=== PATIENT | female | born 1970 | race Caucasian/White ===

== ENCOUNTER 2019-10-10 01:19 | Day surgery (SDC) | payer OTHER, SELFPAY ==
[2019-10-01 11:45] VITALS: BMI 31.3
--- NOTE | 2019-10-10 09:43 | PM.IMHP ---
H&P: HPI History of Present Illness Chief complaint: Menorrhagia Narrative: Lyudmila Field is a 49yo P1001, LMP 09/28/19 who initially presented to clinic with complaints of abnormal uterine bleeding. She reports heavy vaginal bleeding and can soak 2 large pads (overnight) at a time. In May, she had 21 days of bleeding. She continues to have bleeding every month; and occasionally has intermenstrual spotting. Full work up showed: fibroid uterus measuring [id number], thickened endometrium measuring 10mm, and endometrial polyp on endometrial biopsy. Pt was counseled for hysteroscopy, dilation and curettage, polypectomy, possible myomectomy, and endometrial ablation. Review of Systems Constitutional: Constitutional: Denies body ache(s), Denies fatigue and Denies lethargy Cardiovascular: Cardiovascular: Denies chest pain, Denies lightheadedness and Denies palpitations Respiratory: Respiratory: Denies cough and Denies dyspnea Gastrointestinal: Gastrointestinal: Denies abdominal pain and Denies nausea Genitourinary: Genitourinary: Reports menorrhagia, Denies hot flashes, Reports dysmenorrhea, Denies dysuria and Denies vaginal discharge Neurologic: Denies headache(s) Psychiatric: Psychiatric: Denies anxiety and Denies depression [facility] Family History Family History Mother Family history of thyroid disease Father Family history of blood dyscrasia Grandparent Cerebrovascular accident Social History Social History Smoking status: Never smoker Second hand tobacco smoke exposure: No Alcohol intake: current Meds Home Medications and Allergies Home Medications Medication Instructions Recorded Confirmed Type blood sugar diagnostic #10 each 07/30/19 07/30/19 History insulin aspart U-100 100 unit/mL 3 - 5 unit SUBCUT TID 07/30/19 10/01/19 History (3 mL) subcutaneous pen pen needle, diabetic 31 gauge x #30 each 07/30/19 07/30/19 History 11/18 blood-glucose meter,continuous #1 each 07/31/19 Rx blood-glucose sensor #3 each 07/31/19 Rx blood-glucose transmitter #1 each 07/31/19 Rx omeprazole 40 mg capsule,delayed 40 mg PO DAILY #30 cap 07/31/19 10/01/19 Rx release insulin degludec 100 unit/mL (3 22 unit SUB-Q DAILY 90 Days #19.8 09/14/19 10/01/19 Rx mL) subcutaneous pen ml Vitamin B-12 1 tablet PO DAILY 10/01/19 10/01/19 History albuterol sulfate [ProAir HFA] 1 inh INHALATION DIRECTED PRN 10/01/19 10/01/19 History glucosamine sulfate [Glucosamine] 500 mg PO DAILY 10/01/19 10/01/19 History psyllium husk [Metamucil] 0.4 g PO DAILY 10/01/19 10/01/19 History Allergies Allergy/AdvReac Type Severity Reaction Status Date / Time latex Allergy Severe Rash Verified 10/10/19 10:44 venom-wasp Allergy Unknown SWELLING, Verified 10/10/19 10:44 THROAT SWELLING bee venom protein (honey bee) Allergy THROAT Verified 10/10/19 10:44 [bees] SWELLING mushroom Allergy THROAT Verified 10/10/19 10:44 SWELLING Exam Const: General: comfortable and no acute distress Resp: Effort & Inspection: normal respiratory effort Auscultation: clear to auscultation bilaterally Cardio: Rate: regular rate Rhythm: regular rhythm GI: Inspection: non-distended GI Palp: Yes Soft to palpation and No Tenderness to palpation present (GI) Auscultation: normal bowel sounds : Other: deferred to OR Skin: General skin exam: normal color Neuro: Speech: normal speech Psych: Affect: normal affect Assessment and Plan Assessment and plan (1) Abnormal uterine bleeding (AUB): Code(s): N93.9 - Abnormal uterine and vaginal bleeding, unspecified Status: Acute Assessment and Plan: - AUB due to polyp vs leiomyoma vs oligomenorrhea - Will proceed with hysteroscopy, dilation/curettage, polypectomy, possible hysteroscopic myomectomy, and endometrial ablation - All risks, benefits,
[2019-10-10] MEDS: LACTATED RINGERS 1,000 ML 30 ML IV CONT ×2 (11:00→13:36)
[2019-10-10 11:06] LABS: Glucose Point of Care 159 (65-105)
--- NOTE | 2019-10-10 11:15 | WPDANESEPPF ---
Anes - Initial Pre Proc Eval Procedure: Operation Date: 10/10/19 12:00 Proposed Procedures p Hysteroscopy, Polypectomy, Novasure Endometrial Ablation, Possible Myomectomy - Karina Subramanian MD Date/Time: 10/10/19 11:15 Surgeon: Karina Subramanian MD Pre Op Diagnosis: Menorrhagia Patient Data Age: 49 Gender: F Height: 5 ft 6 in Weight: 87 kg Allergies Allergy/AdvReac Type Severity Reaction Status Date / Time latex Allergy Severe Rash Verified 10/10/19 10:44 venom-wasp Allergy Unknown SWELLING, Verified 10/10/19 10:44 THROAT SWELLING bee venom protein (honey bee) Allergy THROAT Verified 10/10/19 10:44 [bees] SWELLING mushroom Allergy THROAT Verified 10/10/19 10:44 SWELLING Home Medications Medication Instructions Recorded Confirmed Type blood sugar diagnostic #10 each 07/30/19 07/30/19 History insulin aspart U-100 100 unit/mL 3 - 5 unit SUBCUT TID 07/30/19 10/10/19 History (3 mL) subcutaneous pen pen needle, diabetic 31 gauge x #30 each 07/30/19 07/30/19 History 11/18 blood-glucose meter,continuous #1 each 07/31/19 Rx blood-glucose sensor #3 each 07/31/19 Rx blood-glucose transmitter #1 each 07/31/19 Rx omeprazole 40 mg capsule,delayed 40 mg PO DAILY #30 cap 07/31/19 10/10/19 Rx release insulin degludec 100 unit/mL (3 22 unit SUB-Q DAILY 90 Days #19.8 09/14/19 10/10/19 Rx mL) subcutaneous pen ml Vitamin B-12 1 tablet PO DAILY 10/01/19 10/10/19 History albuterol sulfate [ProAir HFA] 1 inh INHALATION DIRECTED PRN 10/01/19 10/01/19 History glucosamine sulfate [Glucosamine] 500 mg PO DAILY 10/01/19 10/10/19 History psyllium husk [Metamucil] 0.4 g PO DAILY 10/01/19 10/10/19 History Laboratory Tests 10/10/19 11:04 POC Capillary Glucose 159 mg/dl H mg/dl (65-105) Patient hx anesthesia problems: post op nausea/vomiting Family hx anesthesia problems: none PMFSH Family History Family History Mother Family history of thyroid disease Father Family history of blood dyscrasia Grandparent Cerebrovascular accident Social History Social History Smoking status: Never smoker Second hand tobacco smoke exposure: No Alcohol intake: current Anes - Eval Final PreProcedure Day of Procedure 10/10/19 11:15 Patient weight: obese Heart: regular rate and rhythm Lungs: clear to auscultation Airway: Mallampati scale class II Neurological: alert and oriented Last oral intake: >/= 8 hours ASA classification: II Emergent: no Anesthetic plan: proceed Anesthesia type and monitoring: general GIVS and standard monitoring Informed Consent: The patient's anesthetic plan and its attendant risks and benefits were discussed with the patient/family/POA. Questions were solicited and answers provided to the satisfaction of the patient/family/POA.
[2019-10-10 11:33] VITALS: BP 145/63; PULSE 70; RESP 16; TEMP 36.3; O2SAT 95
[2019-10-10] MEDS: ceFAZolin 2 GM/D5W 50 ML 2 GM/50 ML BAG IVPB (12:09)
[2019-10-10] MEDS: KETOROLAC 30 MG/ML VIAL (*BKC) IV PUSH (12:39)
[2019-10-10 12:54] VITALS: BP 137/85; PULSE 68; RESP 18; O2SAT 94
[2019-10-10 13:20] VITALS: BP 106/67; PULSE 40
[2019-10-10] MEDS: SCOPOLAMINE 1.5 MG PATCH TRANSDERM (13:34)
[2019-10-10 13:50] VITALS: BP 104/57; PULSE 47
--- NOTE | 2019-10-10 14:02 | PM.PROC ---
Procedure Note - Detailed Date of procedure: 10/10/19 Pre-op diagnosis: Menorrhagia Post-op diagnosis: same Procedure performed: Hysteroscopy, dilation and curettage, and Evon endometrial ablation Description of procedure: The patient was taken to the operating room where MAC was noted to be adequate. She was then prepped and drained in the dorsal lithotomy position. She recieved 2g Ancef and a time out was performed. The bladder was drained using a straight catheter (silicone). A bivalve speculum was then placed within the vagina and the anterior lip of the cervix was grasped with a single tooth tenaculum. A sound was used to identify the total uterine length of 10cm. The cervix was then serially dilated to allow for the hysteroscope. The hysteroscope was inserted into the uterus without complication and the thickened endometrium and three small endometrial polyps were noted. The hysteroscope was removed and a gentle curettage was performed until a good uterine cry was noted. The endometrial curettings were sent to pathology. The Evon endometrial ablation was then set to the correct settings. The Evon device was inserted into the uterus, deployed and the cervical balloon was insufflated. The test run was performed and passed. The endometrial ablation was performed without issue for 120 seconds. The Mirnerva device was removed from the uterus and the hysteroscope was once again advanced and verified the endometrial cavity was ablated in its entirety. All instruments were removed from the vagina after good hemostasis was noted. Instrument and sponge counts were correct at the end of the procedure. The patient tolerated the procedure well and was woken from MAC without difficulty and taken to recovery with plans to be discharged home same day. Anesthesia: MAC Surgeon: Karina Subramanian MD Estimated blood loss (mL): 5 Urine output (mL): 300 Drains: No Packing: No Pathology: yes (endometrial curretings) Complications: No immediate complications Condition: stable Disposition: same day Findings: Slightly enlarged uterus; 10cm in length, cervix measuring 4cm in length. Thickened endometrial lining with 3 small endometrial polyps. Evon endometrial ablation performed without difficulty. Good hemostasis at end of case.
[2019-10-10 14:20] VITALS: BP 118/73; PULSE 58
[2019-10-10 14:35] VITALS: BP 121/64; PULSE 60
== END 2019-10-10 14:49 | disposition home or self-care (01) ==
PROVIDERS: PCP Internal Medicine; Visit Provider Obstetrics & Gynecology
PROC: 0U5B8ZZ Destruction of Endometrium, Via Natural or Artificial Opening Endoscopic (ICD-10-PCS; CPT 58563; principal; 2019-10-10 12:00)
DX: N92.0 Excessive and frequent menstruation with regular cycle (principal); N84.0 Polyp of corpus uteri; E10.9 Type 1 diabetes mellitus without complications; Z79.4 Long term (current) use of insulin; E66.9 Obesity, unspecified; Z68.31 Body mass index [BMI] 31.0-31.9, adult
CPT/HCPCS: 58563; 88305; A9270; J0131; J0690; J1100; J1200; J1885; J2250; J2405; J2704; J3010; J7030; J7120

== ENCOUNTER 2019-12-13 10:55 | Outpatient (CLI) | payer OTHER, SELFPAY ==
--- NOTE | ~2019-12-13 | XR_ITS ---
EXAMINATION: XR chest 2V DATE: 12/13/2019 11:10 INDICATION: Shortness of breath. TECHNIQUE: Frontal and lateral views of the chest were obtained. COMPARISON: CT abdomen and pelvis 11/20/2018 FINDINGS: The chest demonstrates clear lungs without pneumonia, pleural effusion, or pneumothorax. Th e heart size is normal. There are likely changes of distal right clavicle resection. IMPRESSION: 1. No acute cardiopulmonary disease. Reviewed, dictated and finalized at location A.
== END 2019-12-13 10:56 | disposition home or self-care (01) ==
LOC: ANHIMG 11:00
PROVIDERS: PCP Internal Medicine; Visit Provider Nurse Practitioner
DX: R06.02 Shortness of breath (principal)
CPT/HCPCS: 71046

== ENCOUNTER 2020-02-20 11:26 | Outpatient (CLI) | payer OTHER, SELFPAY ==
--- NOTE | ~2020-02-20 | XR_ITS ---
EXAMINATION: XR chest 2V DATE: 02/20/2020 11:42 INDICATION: Shortness of breath TECHNIQUE: PA and lateral views of the chest are obtained. COMPARISON: 12/13/2019 FINDINGS: The lungs are free of acute opacities. There is no pleural effusion or pneumothorax. The ca rdiomediastinal silhouette is normal. There is mild thoracic spondylosis. Again noted are changes in the distal right clavicle which may reflect prior resection. IMPRESSION: 1. No acute cardiopulmonary abnormality. Reviewed, dictated and finalized at location A.
== END 2020-02-20 11:27 | disposition home or self-care (01) ==
LOC: ANHIMG 11:31
PROVIDERS: PCP Internal Medicine; Visit Provider Clinical Nurse Specialist
DX: R06.02 Shortness of breath (principal)
CPT/HCPCS: 71046

== ENCOUNTER 2020-06-13 14:56 | Outpatient (CLI) | payer OTHER, SELFPAY ==
--- NOTE | ~2020-06-13 | XR_ITS ---
EXAMINATION: XR chest 2V EXAM DATE: 06/13/2020 15:16 INDICATION: Shortness of breath, cough. History of asthma. TECHNIQUE: Frontal and lateral projections of the chest obtained and reviewed. Comparison is made to prior examination from 01/20/2020, 12/13/2019. FINDINGS: Mild thoracic aortic tortuosity. The lungs are clear. There are no pleural effusions. Th e cardiomediastinal silhouette is within normal limits. There is no pneumothorax suspected. The bon es and soft tissues are unremarkable. Widened right acromioclavicular joint, could be postoperative . This is unchanged. IMPRESSION: No acute cardiopulmonary findings. Reviewed, dictated and finalized at location G.
== END 2020-06-13 14:57 | disposition home or self-care (01) ==
PROVIDERS: PCP Internal Medicine
DX: R05 Cough (principal); J45.909 Unspecified asthma, uncomplicated
CPT/HCPCS: 71046

== ENCOUNTER → 2020-10-28 14:45 | Outpatient (CLI) | payer OTHER, SELFPAY ==
--- NOTE | ~2020-10-28 | MM_ITS ---
EXAMINATION: MM screening [facility] BI w negrito HISTORY: Screening mammogram TECHNIQUE: Craniocaudal and mediolateral oblique 3-D tomosynthesis images were obtained and synthetic 2-D images were generated. CAD analysis was submitted and interpreted. COMPARISON: 12/26/2018, 08/03/2017, 05/31/2016 BREAST PARENCHYMAL COMPOSITION: The breasts are heterogeneously dense, which may obscure small masses . FINDINGS: There is no evidence of suspicious mass, calcification, or architectural distortion to sugg est malignancy in either breast. There has been no suspicious interval change. IMPRESSION: 1. No mammographic evidence of malignancy. 2. Recommend routine screening mammography in one year. BI-RADS Category 1: Negative Reviewed, dictated and finalized at location A. CTIONS COUNSELOR
== END ==
PROVIDERS: Visit Provider Obstetrics & Gynecology
DX: Z12.31 Encounter for screening mammogram for malignant neoplasm of breast (principal)
CPT/HCPCS: 77063; 77067

== ENCOUNTER 2020-11-07 14:29 | Outpatient (CLI) | payer OTHER, SELFPAY | END 2020-11-07 14:30 | disposition home or self-care (01) | LOC: ANHCOVIDVC 14:29 | DX: Z23 Encounter for immunization (principal) | CPT/HCPCS: 0001A; 91300 ==

== ENCOUNTER 2020-11-28 14:35 | Outpatient (CLI) | payer OTHER, SELFPAY | END 2020-11-28 14:36 | disposition home or self-care (01) | LOC: ANHCOVIDVC 14:35 | DX: Z23 Encounter for immunization (principal) | CPT/HCPCS: 0002A; 91300 ==

== ENCOUNTER 2021-01-01 10:32 | Outpatient (CLI) | payer OTHER, SELFPAY ==
[2021-01-01 12:16] LABS: Anion Gap 3 mmol/L (8-16); Blood Urea Nitrogen 14 mg/dL (7-17); Calcium 9.4 mg/dL (8.4-10.2); Carbon Dioxide 31 mmol/L (22-30); Chloride 104 mmol/L (98-107); Cholesterol 208 mg/dL (0-200); Estimated Glomerular Filt Rate > 60; Glucose 136 mg/dL (65-105); HDL Direct 68 mg/dL; Potassium 4.3 mmol/L (3.4-5.0); Sodium 138 mmol/L (137-145); Triglycerides 71 mg/dL (<150)
[2021-01-01 12:27] LABS: LDL Cholesterol Direct 108 mg/dL
[2021-01-01 12:59] LABS: Creatinine Urine 98.3 mg/dL
[2021-01-01 13:14] LABS: MALB Creatinine Ratio < 6.1 mg/g (0-30); Microalbumin Urine Random < 6.0 mg/L (0-16.7)
== END 2021-01-01 10:33 | disposition home or self-care (01) ==
LOC: ANHWCLAB 10:36
PROVIDERS: Visit Provider Internal Medicine Endocrinology, Diabetes & Metabolism
DX: E10.65 Type 1 diabetes mellitus with hyperglycemia (principal)
CPT/HCPCS: 36415; 80048; 80061; 82043; 84443

== ENCOUNTER 2021-01-14 11:36 | Emergency (ER) | payer OTHER, SELFPAY ==
--- NOTE | ~2021-01-14 | XR_ITS ---
EXAMINATION: XR chest 2V DATE: 01/14/2021 12:05 INDICATION: Chest pain. TECHNIQUE: Frontal and lateral views of the chest were obtained. COMPARISON: Chest 2 views 06/13/2020, CT abdomen and pelvis 11/20/2018 FINDINGS: The chest demonstrates clear lungs without pneumonia, pleural effusion, or pneumothorax. Th e heart size is normal. There are changes of distal right clavicle resection. IMPRESSION: 1. No acute cardiopulmonary disease. Reviewed, dictated and finalized at location B.
[2021-01-14 11:43] VITALS: BP 127/80; PULSE 66; RESP 16; O2SAT 100
--- NOTE | 2021-01-14 11:47 | ECG_ITS ---
Measurements Intervals [place] Rate: 72 P: 55 MO: 188 QRS: -11 QRSD: 78 T: 49 QT: 383 QTc: 420 Interpretive Statements SINUS RHYTHM LOW QRS VOLTAGE IN PRECORDIAL LEADS CONSIDER INFERIOR INFARCT, AGE INDETERMINATE ABNORMAL ECG Electronically Signed On 01-14-2021 12:06:16 CDT by Domingo Lester D.O.
[2021-01-14 11:59] LABS: Basophils Percent Auto 0.5 % (0.2-1.2); Eosinophils Absolute Auto 0.1 K/mm3 (0-0.3); Eosinophils Percent Auto 2.3 % (0-4.4); Hemoglobin 13.5 g/dL (12.0-15.0); Immature Granulocyte Absolute 0.01 K/mm3 (0.00-0.031); Immature Granulocyte Percent A 0.3 % (0-0.5); Lymphocytes Absolute Auto 1.34 K/mm3 (0.9-3.2); Lymphocytes Percent Auto 34.1 % (18.3-44.2); Mean Corpuscular HGB Conc 33.8 g/dl (32-36); Mean Corpuscular Hemoglobin 30.5 pg (26-34); Mean Corpuscular Volume 90.3 fl (80-100); Mean Platelet Volume 10.1 fl (7.4-10.4); Monocytes Absolute Auto 0.4 K/mm3 (0.1-0.6); Monocytes Percent Auto 9.4 % (2.6-8.5); Neutrophils Absolute Auto 2.1 K/mm3 (1.3-6.7); Neutrophils Percent Auto 53.4 % (45.5-73.1); Platelet Count Result 312 k/mm3 (150-375); Red Blood Count 4.43 M/mm3 (4.2-5.4); Red Cell Distribution Width 12.2 % (11.5-14.5); White Blood Count 3.9 K/mm3 (4.5-10.0)
[2021-01-14 12:09] LABS: Prothrombin Time 13.6 Seconds (11.1-14.7)
[2021-01-14 12:10] LABS: Partial Thromboplastin Time 26.6 SECONDS (22.3-36.8)
[2021-01-14 12:12] LABS: Anion Gap 1 mmol/L (8-16); Blood Urea Nitrogen 10 mg/dL (7-17); Calcium 9.4 mg/dL (8.4-10.2); Carbon Dioxide 32 mmol/L (22-30); Chloride 107 mmol/L (98-107); Estimated CRCL calculation 112 ml/min; Estimated Glomerular Filt Rate > 60; Glucose 64 mg/dL (65-105); Potassium 4.4 mmol/L (3.4-5.0); Sodium 140 mmol/L (137-145)
[2021-01-14 12:23] LABS: Troponin I < 0.012 ng/mL (0.000-0.034)
[2021-01-14 13:24] VITALS: PULSE 64
[2021-01-14 14:10] VITALS: BP 103/76; PULSE 70; RESP 16; O2SAT 97
[2021-01-14] MEDS: KETOROLAC 30 MG/ML VIAL (*BKC) IV PUSH (14:11)
--- NOTE | 2021-01-14 14:11 | PC.NURSE ---
Report to TESFAYE Velasco, to continue care.
--- NOTE | 2021-01-14 14:27 | ED.CHESTPAIN ---
HPI - Chest Pain General Chief Complaint: Chest Pain Stated Complaint: cp Time Seen by Provider: 01/14/21 13:31 History of Present Illness HPI narrative: Patient is a 51-year-old female who presents ER with neck/chest/back pain. Patient woke up this morning with her chronic neck pain on the left side. But was atypical about this is she is also developing pain over her left chest moving to the right side and also having pain in her left back. It is worse with moving and twisting and lifting items. It is also uncomfortable when she takes a deep breath. No fevers or chills or sweats. No productive cough. No hemoptysis. No lower extremity swelling. She did have surgery less than 1 month ago. She reports family history of blood clots but she has been checked for the genetic flexion that affects her family and she was negative. She has no personal history of blood clots. No improvement with ibuprofen or Tylenol. Related Data Home Medications Medication Instructions Recorded Confirmed blood sugar diagnostic #10 each 07/30/19 07/04/20 Vitamin B-12 1 tablet PO DAILY 10/01/19 07/04/20 glucosamine sulfate [Glucosamine] 500 mg PO DAILY 10/01/19 07/04/20 psyllium husk [Metamucil] 0.4 g PO DAILY 10/01/19 07/04/20 fluticasone propionate 50 1 spray NASAL DAILY 12/13/19 07/04/20 mcg/actuation nasal spray,suspension pen needle, diabetic 31 gauge x #30 each 05/27/20 07/04/20 3/16 insulin degludec 100 unit/mL (3 18 - 20 unit SUB-Q QAM ml 09/24/20 mL) subcutaneous pen fluticasone propion-salmeterol INHALATION 01/14/21 [Advair Diskus] Allergies Allergy/AdvReac Type Severity Reaction Status Date / Time latex Allergy Severe Rash Verified 01/14/21 13:30 venom-wasp Allergy Unknown SWELLING, Verified 01/14/21 13:30 THROAT SWELLING bee venom protein (honey bee) Allergy THROAT Verified 01/14/21 13:30 [bees] SWELLING mushroom Allergy THROAT Verified 01/14/21 13:30 SWELLING Review of Systems Review of Systems: All systems reviewed & are unremarkable except as noted in HPI and below Constitutional: Constitutional: Denies chills, Denies fever(s) and Denies weakness ENT: Denies nasal congestion and Denies sore throat Cardiovascular: Cardiovascular: Reports chest pain, Denies rapid heart rate and Denies radiating jaw, neck or arm pain Respiratory: Respiratory: Denies cough, Denies dyspnea and Denies wheezing Gastrointestinal: Gastrointestinal: Denies abdominal pain, Denies nausea and Denies vomiting Genitourinary: Genitourinary: Denies nocturia and Denies dysuria Musculoskeletal: Musculoskeletal: Reports back pain, Denies arthralgias, Denies joint swelling and Reports muscle cramps [facility] Past Medical History Medical History (Updated 01/14/21 @ 16:02 by Markel Mead MD) Asthma GERD (gastroesophageal reflux disease) Surgical History Surgical History (Updated 01/14/21 @ 10:44 by Ewa Manuel CMA) H/O adenoidectomy H/O dilation and curettage H/O foot surgery Left foot bone replacement H/O shoulder surgery Right and left History of hernia repair History of repair of ACL History of tonsillectomy Status post cervical polyp removal Family History Family History Mother Family history of thyroid disease Father Family history of blood dyscrasia Grandparent Cerebrovascular accident Social History Social History Smoking status: Never smoker Second hand tobacco smoke exposure: No Alcohol intake: current Gender identity (if verbalized by the patient): Female Exam Narrative: Exam Narrative: GENERAL: Well-appearing, well-nourished, and in no acute distress. HEAD: Normocephalic, atraumatic. CHEST: Clear to auscultation. No respiratory distress. Tender palpation with light palpation of the anterior chest wall bilaterally. HEART: Regular rate and rhythm. Normal pe
[2021-01-14 15:11] LABS: Troponin I < 0.012 ng/mL (0.000-0.034)
[2021-01-14 15:12] LABS: D Dimer 0.27 ug/mL (<0.48)
[2021-01-14 15:43] VITALS: BP 107/74; PULSE 70; RESP 14; O2SAT 97
[2021-01-14 16:08] VITALS: BP 118/82; PULSE 79; RESP 15; O2SAT 100
== END 2021-01-14 16:12 | disposition home or self-care (01) ==
PROVIDERS: Emergency Medicine; Emergency Provider Emergency Medicine; PCP Internal Medicine
DX: R25.2 Cramp and spasm (principal); J45.909 Unspecified asthma, uncomplicated; K21.9 Gastro-esophageal reflux disease without esophagitis
CPT/HCPCS: 36415; 71046; 80048; 84484; 85025; 85380; 85610; 85730; 93005; 96374; 99284; J1885

== ENCOUNTER 2021-01-21 08:22 | Outpatient (CLI) | payer OTHER, SELFPAY ==
--- NOTE | ~2021-01-21 | CT_ITS ---
EXAMINATION: CTA chest PE protocol DATE: 01/21/2021 08:59 INDICATION: Shortness of breath TECHNIQUE: Computed tomography angiography (CTA) of the chest was performed with 100 mL Omnipaque-350 intravenous contrast timed to evaluate the pulmonary arteries. Coronal maximum intensity projection 3D-reconstructions were created by the technologist. Automated exposure control and iterative reconst ruction technique were employed. Exam dose: 499.59 mGy-cm total exam DLP. COMPARISON: 01/14/2021 PA and lateral chest FINDINGS: There is diagnostic contrast enhancement of the pulmonary arteries and no evidence of pulmo nary embolism. No thoracic aortic aneurysm or dissection. Heart size is within normal range. No pericardial or pleur al effusion. Mild atelectasis in the lower lobes. Mild discoid scarring, right upper lobe. No pulmonary consolidat ion or pulmonary mass lesion is evident. Normal morphology of the adrenal glands. Included upper abdominal structures are unremarkable. No suspicious osteolytic or osteoblastic lesions. IMPRESSION: No evidence of pulmonary embolism Reviewed, dictated and finalized at Location A. Reviewed, dictated and finalized at location B.
== END 2021-01-21 08:23 | disposition home or self-care (01) ==
PROVIDERS: PCP Internal Medicine; Visit Provider Clinical Nurse Specialist
DX: R06.02 Shortness of breath (principal)
CPT/HCPCS: 71275; Q9967

== ENCOUNTER 2021-04-08 10:34 | Outpatient (CLI) | payer OTHER, SELFPAY ==
--- NOTE | ~2021-04-08 | US_ITS ---
EXAMINATION: US venous doppler [facility] DATE: 04/08/2021 11:21 INDICATION: Left posterior thigh pain and bruise TECHNIQUE: Panda scale images without and with compression and Doppler images of the left lower extrem ity veins were obtained. COMPARISON: None FINDINGS: The left common femoral vein, profunda femoral vein, femoral vein, popliteal vein, peroneal trunk, posterior tibial veins, and greater saphenous vein are patent. No discrete sonographic correl ate is identified in the area of the reported bruising. IMPRESSION: 1. Patent left lower extremity veins. No evidence of deep venous thrombosis. Reviewed, dictated and finalized at location A.
== END 2021-04-08 10:35 | disposition home or self-care (01) ==
PROVIDERS: PCP Internal Medicine; Visit Provider Nurse Practitioner
DX: R52 Pain, unspecified (principal); R60.9 Edema, unspecified
CPT/HCPCS: 93971

== ENCOUNTER 2021-04-21 20:39 | Emergency (ER) | payer OTHER, SELFPAY ==
--- NOTE | ~2021-04-21 | XR_ITS ---
XR chest 2V DATE: 04/21/2021 20:54 INDICATION: Midsternal and left-sided chest pain for one week. History of asthma and type 1 diabetes mellitus. TECHNIQUE: PA and lateral views COMPARISON: 01/21/2021 CT pulmonary scan 01/14/2021 2 view chest FINDINGS: Lateral right clavicular resection. Normal heart size. No hilar or mediastinal enlargement. No pulmonary infiltrate or consolidation, pleural effusion or pulmonary vascular congestion or pneumo thorax. IMPRESSION: No active cardiopulmonary disease Reviewed, dictated and finalized at location A.
--- NOTE | 2021-04-21 20:41 | ECG_ITS ---
Measurements Intervals [place] Rate: 78 P: 48 [place]: 182 QRS: -11 QRSD: 75 T: 51 QT: 376 QTc: 430 Interpretive Statements SINUS RHYTHM LOW QRS VOLTAGE IN PRECORDIAL LEADS INFERIOR INFARCT, AGE INDETERMINATE ABNORMAL ECG Electronically Signed On 04-22-2021 6:28:58 CDT by Domingo Lester D.O.
[2021-04-21 21:09] VITALS: BP 137/83; PULSE 77; RESP 18; TEMP 36.3; O2SAT 100
[2021-04-21 21:15] LABS: Basophils Percent Auto 0.7 % (0.2-1.2); Eosinophils Absolute Auto 0.1 K/mm3 (0-0.3); Eosinophils Percent Auto 1.5 % (0-4.4); Hematocrit 40.2 % (37.0-47.0); Hemoglobin 13.5 g/dL (12.0-15.0); Immature Granulocyte Absolute 0.01 K/mm3 (0.00-0.031); Immature Granulocyte Percent A 0.2 % (0-0.5); Lymphocytes Absolute Auto 1.42 K/mm3 (0.9-3.2); Lymphocytes Percent Auto 34.8 % (18.3-44.2); Mean Corpuscular HGB Conc 33.6 g/dl (32-36); Mean Corpuscular Hemoglobin 30.4 pg (26-34); Mean Corpuscular Volume 90.5 fl (80-100); Mean Platelet Volume 10.3 fl (7.4-10.4); Monocytes Absolute Auto 0.3 K/mm3 (0.1-0.6); Monocytes Percent Auto 7.6 % (2.6-8.5); Neutrophils Absolute Auto 2.3 K/mm3 (1.3-6.7); Neutrophils Percent Auto 55.2 % (45.5-73.1); Platelet Count Result 337 k/mm3 (150-375); Red Blood Count 4.44 M/mm3 (4.2-5.4); Red Cell Distribution Width 12.7 % (11.5-14.5); White Blood Count 4.1 K/mm3 (4.5-10.0)
[2021-04-21 21:24] LABS: Anion Gap 3 mmol/L (8-16); Blood Urea Nitrogen 12 mg/dL (7-17); Carbon Dioxide 29 mmol/L (22-30); Chloride 104 mmol/L (98-107); Estimated CRCL calculation 90 ml/min; Estimated Glomerular Filt Rate > 60; Glucose 138 mg/dL (65-110); Potassium 3.6 mmol/L (3.4-5.0); Sodium 136 mmol/L (137-145)
[2021-04-21 21:25] LABS: INR 0.9; Prothrombin Time 12.1 Seconds (11.1-14.7)
[2021-04-21 21:36] LABS: Troponin I < 0.012 ng/mL (0.000-0.034)
[2021-04-22 00:37] LABS: Troponin I < 0.012 ng/mL (0.000-0.034)
--- NOTE | 2021-04-22 00:52 | ED.GENADULT ---
HPI - General Adult General Chief complaint: Chest Pain Stated complaint: chest pains Time Seen by Provider: 04/22/21 00:00 History of Present Illness HPI narrative: Patient 51-year-old female presents the emergency department with chief complaint of chest pain. The patient reports over the last week or so she has been having some intermittent discomfort in her chest. 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 Patient states that she had no diaphoresis with it reports has not had a stress test reports that she has no history of hypertension no history of high cholesterol does report that she has history of diabetes Related Data Home Medications Medication Instructions Recorded Confirmed blood sugar diagnostic #10 each 07/30/19 01/16/21 Vitamin B-12 1 tablet PO DAILY 10/01/19 01/16/21 glucosamine sulfate [Glucosamine] 500 mg PO DAILY 10/01/19 01/16/21 psyllium husk [Metamucil] 0.4 g PO DAILY 10/01/19 01/16/21 fluticasone propionate 50 1 spray NASAL DAILY 12/13/19 01/16/21 mcg/actuation nasal spray,suspension pen needle, diabetic 31 gauge x #30 each 05/27/20 01/16/2111/18 fluticasone propion-salmeterol INHALATION 01/14/21 01/16/21 [Advair Diskus] Allergies Allergy/AdvReac Type Severity Reaction Status Date / Time latex Allergy Severe Rash Verified 04/22/21 00:10 venom-wasp Allergy Unknown SWELLING, Verified 04/22/21 00:10 THROAT SWELLING bee venom protein (honey bee) Allergy THROAT Verified 04/22/21 00:10 [bees] SWELLING mushroom Allergy THROAT Verified 04/22/21 00:10 SWELLING Review of Systems Review of Systems: A 10 system review of systems was completed on the patient and is negative except for what is stated in the HPI. Nursing and ancillary documentation was reviewed. [facility] Past Medical History Medical History Asthma GERD (gastroesophageal reflux disease) Varicose veins of both lower extremities Surgical History Surgical History H/O adenoidectomy H/O dilation and curettage H/O foot surgery Left foot bone replacement H/O shoulder surgery Right and left History of hernia repair History of repair of ACL History of tonsillectomy Status post cervical polyp removal Family History Family History Mother Family history of thyroid disease Father Family history of blood dyscrasia Grandparent Cerebrovascular accident Social History Social History Smoking status: Never smoker Second hand tobacco smoke exposure: No Alcohol intake: current Alcohol use details: rarely Gender identity (if verbalized by the patient): Female Exam Narrative: GENERAL: Well-appearing, well-nourished, and in no acute distress. HEAD: Normocephalic, atraumatic. EYES: PERRLA and EOMI. ENT: Nares clear, no rhinorrhea or epistaxis. Mucous membranes moist. NECK: Supple. CHEST: Clear to auscultation. No respiratory distress. HEART: Regular rate and rhythm. No murmur heard. Normal peripheral pulses. ABDOMEN: Soft, nontender, nondistended, normal active bowel sounds. EXTREMITIES: Normal range of motion. No edema. SKIN: Warm, dry, no rash. NEURO: No focal deficits. Alert and oriented x3. PSYCH: Normal mood and affect. Course Course Emergency Course: Patient EKG shows a heart rate of [address] elevation or ST depression Vital Signs Vital signs: Vital Signs Temperature 36.3 C L 04/21/21 21:09 Pulse Rate 77 04/21/21 21:09 Respiratory Rate 18 04/21/21 21:09 Blood Pressure 137/83 04/21/21 21:09 Pulse Oximetry 100 04/21/21 21:09
[2021-04-22] MEDS: ASPIRIN 81 MG CHEWABLE TABLET 324 MG PO (01:08)
[2021-04-22 01:11] VITALS: BP 130/80; PULSE 78; RESP 18; O2SAT 100
== END 2021-04-22 01:11 | disposition home or self-care (01) ==
PROVIDERS: Emergency Medicine; Emergency Provider Emergency Medicine; PCP Internal Medicine
DX: R07.89 Other chest pain (principal); R94.31 Abnormal electrocardiogram [ECG] [EKG]; J45.909 Unspecified asthma, uncomplicated; K21.9 Gastro-esophageal reflux disease without esophagitis
CPT/HCPCS: 36415; 71046; 80048; 84484; 85025; 85610; 85730; 93005; 99284; A9270

== ENCOUNTER 2022-07-05 15:13 | Outpatient (CLI) | payer OTHER, SELFPAY ==
--- NOTE | ~2022-07-05 | US_ITS ---
EXAMINATION: US venous doppler [facility] DATE: 07/05/2022 16:09 INDICATION: Lower limb pain TECHNIQUE: Grayscale ultrasound images without and with compression and Doppler ultrasound images of the bilateral lower extremity veins were obtained. COMPARISON: 04/08/2021 FINDINGS: The visualized portions of right common femoral vein, profunda (deep) femoral vein, femoral vein, pop liteal vein, posterior tibial veins, peroneal veins, gastrocnemius vein and greater saphenous vein ou tflow are patent. The visualized portions of left common femoral vein, profunda femoral vein, femoral vein, popliteal v ein, posterior tibial veins, peroneal veins, gastrocnemius vein and greater saphenous vein outflow ar e patent. IMPRESSION: 1. No deep venous thrombosis in either lower limb. Reviewed, dictated and finalized at location B.
== END 2022-07-05 15:14 | disposition home or self-care (01) ==
PROVIDERS: PCP Internal Medicine; Visit Provider Clinical Nurse Specialist
DX: M79.669 Pain in unspecified lower leg (principal)
CPT/HCPCS: 93970

== ENCOUNTER 2022-07-07 16:10 | Outpatient (CLI) | payer OTHER, SELFPAY ==
--- NOTE | ~2022-07-07 | US_ITS ---
EXAMINATION: US right upper quadrant DATE: 07/07/2022 16:42 INDICATION: R10.11 - Right upper quadrant pain TECHNIQUE: Multiple grayscale and Doppler ultrasound images of the right upper quadrant were obtained . COMPARISON: X-ray abdomen 01/02/2019, CT abdomen and pelvis 11/20/2018. FINDINGS: The visualized portions of the pancreas are normal. The liver is normal with normal echogen icity and echotexture. No surface nodularity. Normal hepatopetal flow in the main portal vein. The ga llbladder is normal with no abnormal wall thickening, pericholecystic fluid or stones. The common justus e duct measures 3 mm. There was no sonographic Flores sign. IMPRESSION: Normal right upper quadrant ultrasound findings. Reviewed, dictated and finalized at location K.
== END 2022-07-07 16:11 | disposition home or self-care (01) ==
PROVIDERS: PCP Internal Medicine; Visit Provider Clinical Nurse Specialist
DX: R10.11 Right upper quadrant pain (principal)
CPT/HCPCS: 76705

== ENCOUNTER 2022-07-23 13:49 | Emergency (ER) | payer OTHER, SELFPAY ==
--- NOTE | 2022-07-23 13:52 | ED.FEMALEGU ---
HPI - Female Genitourinary General Chief complaint: Urogenital-Female Stated complaint: uti Time Seen by Provider: 07/23/22 14:16 Source: patient and RN notes reviewed Mode of arrival: ambulatory Limitations: no limitations History of Present Illness HPI Narrative: 52-year-old female presents concern for urinary tract infection. She reports symptoms started on Tuesday with for pain with urination, frequency. Reports today she has had some nausea and increasing pain with urination. She denies back pain abdominal pain, fever, chills, sweats. MD elicited complaint: UTI Related Data Home Medications Medication Instructions Recorded Confirmed blood sugar diagnostic (OneTouch #10 ea 07/30/19 07/01/22 Verio test strips) Vitamin B-12 1 tablet PO DAILY 10/01/19 07/23/22 glucosamine sulfate 500 mg tablet 500 mg PO DAILY 10/01/19 07/01/22 (Glucosamine) psyllium husk 0.4 gram capsule 0.4 g PO DAILY 10/01/19 07/23/22 (Metamucil) fluticasone propionate 50 1 spray intranasal DAILY 12/13/19 07/23/22 mcg/actuation nasal spray,suspension pen needle, diabetic 31 gauge x #30 ea 05/27/20 07/01/22 3/16 (BD Ultra-Fine Mini Pen Needle) fluticasone 100 mcg-salmeterol 50 inhalation 01/14/21 07/01/22 mcg/dose blistr powdr for inhalation (Advair Diskus) vitamin E (dl, acetate) 45 mg (100 45 mg PO DAILY 01/27/22 07/23/22 unit) capsule vitamins A,C,T-kedr-xeuoyi 14,320 1 cap PO BID 07/01/22 07/01/22 unit-226 mg-200 unit capsule (PreserVision AREDS) cyclosporine 0.05 % eye drops in a 1 drp EACH EYE DAILY 07/23/22 07/23/22 dropperette (Restasis) insulin aspart U-100 100 unit/mL 07/23/22 subcutaneous solution (Novolog U-100 Insulin aspart) lifitegrast 5 % eye drops in a 1 drp DAILY 07/23/22 07/23/22 dropperette (Xiidra) Allergies Allergy/AdvReac Type Severity Reaction Status Date / Time latex Allergy Severe Rash Verified 07/23/22 14:06 venom-wasp Allergy Unknown SWELLING, Verified 07/23/22 14:06 THROAT SWELLING bee venom protein (honey bee) Allergy THROAT Verified 07/23/22 14:06 [bees] SWELLING mushroom Allergy THROAT Verified 07/23/22 14:06 SWELLING Review of Systems Review of Systems: CONSTITUTIONAL: Denies malaise, chills, sweats, or fever. CARDIOVASCULAR: Denies chest pain, palpitations, or edema. RESPIRATORY: Denies cough or dyspnea. GASTROINTESTINAL: Denies abdominal pain, vomiting, diarrhea. Reports nausea GENITOURINARY: Reports dysuria, frequency, urgency, suprapubic pressure. Denies flank pain or hematuria. SKIN: Denies rash or itching. MUSCULOSKELETAL: Denies back pain or myalgia. All systems reviewed & are unremarkable except as noted in HPI and below PMFSH Past Medical History Medical History (Updated 07/23/22 @ 14:22 by Ambar Cheek NP) Asthma Bronchitis COVID-19 GERD (gastroesophageal reflux disease) Varicose veins of both lower extremities Surgical History Surgical History H/O adenoidectomy H/O dilation and curettage H/O foot surgery Left foot bone replacement H/O shoulder surgery Right and left History of cataract surgery Right eye 02/2022 History of hernia repair History of repair of ACL History of tonsillectomy Status post cervical polyp removal Family History Family History Mother Family history of thyroid disease Father Family history of blood dyscrasia Grandparent Cerebrovascular accident Other Hypertension Osteoarthritis Social History Social History Smoking status: Never smoker Second hand tobacco smoke exposure: No Alcohol intake: current Alcohol use details: rarely Substance use: never Substance use type: does not use 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
[2022-07-23 14:09] VITALS: BP 130/112; PULSE 90; RESP 16; TEMP 36.8; O2SAT 100
[2022-07-23 14:10] VITALS: BP 130/112; PULSE 90; RESP 16; TEMP 36.8; O2SAT 100
== END 2022-07-23 14:30 | disposition home or self-care (01) ==
PROVIDERS: Emergency Provider Nurse Practitioner; PCP Internal Medicine
DX: N39.0 Urinary tract infection, site not specified (principal); Z79.4 Long term (current) use of insulin
CPT/HCPCS: 81003; 87077; 87086; 87186; 99213; G0463

== ENCOUNTER 2022-08-06 08:36 | Outpatient (CLI) | payer OTHER, SELFPAY ==
--- NOTE | 2022-08-06 08:46 | EST_ITS ---
Patient Info Name: Lyudmila Field Age: 52 years : 1970 Gender: Female Ht: 66 in Wt: 190 lbs BSA: 2.03 m2 HR: 67 bpm BP: 117 / 75 mmHg Heart Rhythm: Sinus Rhythm Technical Quality: Good Exam Date: 08/06/2022 8:54 AM Exam Location: [facility] Patient Status: Outpatient Admit Date: 08/06/2022 Staff Ordering Physician: Dorothy Yoder Lead Generation Representative: Khloe Smith RDCS Attending Provider: DR. HERNANDEZ Referring Physician: Beba SHUKLA; Exam Type: CA stress echo Study Info Indications R07.9 - Chest pain, unspecified Treadmill exercise stress echocardiogram is performed. Summary 1. 1. Negative Donnell exercise stress test for ischemic ST changes by ECG criteria. 2. 2. Good functional capacity, achieving 12 METs of workload. 3. 3. Appropriate HR response to exercise. 4. 4. Appropriate HR recovery at 1 minute post exercise. 5. 5. Negative stress echocardiogram for ischemia by wall motion analysis. 6. 6. Patient informed of the above results. Stress Echo Findings Left Ventricle Appropriate increase in LV endocardial thickening with systole. Appropriate augmentation of contractility with systole. No wall motion abnormality. Left Ventricle Normal LV systolic function, no wall motion abnormality. Protocol: Donnell Stress ECG Details Stage: REST Duration (min): 0 min : 53 sec Speed (mph): 0.0 Grade (%): 0 HR (bpm): 66 SBP (mmHg): 117 DBP (mmHg): 75 METS: --- Stage: REST Duration (min): 9 min : 40 sec Speed (mph): 0.0 Grade (%): 0 HR (bpm): 68 SBP (mmHg): 117 DBP (mmHg): 75 METS: --- Stage: STAGE 1 Duration (min): 1 min : 0 sec Speed (mph): 1.7 Grade (%): 10 HR (bpm): 93 SBP (mmHg): 117 DBP (mmHg): 75 METS: --- Stage: STAGE 1 Duration (min): 2 min : 0 sec Speed (mph): 1.7 Grade (%): 10 HR (bpm): 105 SBP (mmHg): 117 DBP (mmHg): 75 METS: --- Stage: STAGE 1 Duration (min): 3 min : 0 sec Speed (mph): 1.7 Grade (%): 10 HR (bpm): 101 SBP (mmHg): 117 DBP (mmHg): 75 METS: --- Stage: STAGE 2 Duration (min): 1 min : 0 sec Speed (mph): 2.5 Grade (%): 12 HR (bpm): 122 SBP (mmHg): 116 DBP (mmHg): 68 METS: --- Stage: STAGE 2 Duration (min): 2 min : 0 sec Speed (mph): 2.5 Grade (%): 12 HR (bpm): 124 SBP (mmHg): 127 DBP (mmHg): 68 METS: --- Stage: STAGE 2 Duration (min): 3 min : 0 sec Speed (mph): 2.5 Grade (%): 12 HR (bpm): 124 SBP (mmHg): 127 DBP (mmHg): 68 METS: --- Stage: STAGE 3 Duration (min): 1 min : 0 sec Speed (mph): 3.4 Grade (%): 14 HR (bpm): 136 SBP (mmHg): 122 DBP (mmHg): 79 METS: --- Stage: STAGE 3 Duration (min): 2 min : 0 sec Speed (mph): 3.4 Grade (%): 14 HR (bpm): 141 SBP (mmHg): 122 DBP (mmHg): 79 METS: --- Stage: STAGE 3 Duration (min): 3 min : 0 sec Speed (mph): 3.4
== END 2022-08-06 08:37 | disposition home or self-care (01) ==
LOC: ANHCARD 08:38
PROVIDERS: PCP Internal Medicine; Visit Provider Clinical Nurse Specialist
DX: R07.9 Chest pain, unspecified (principal)
CPT/HCPCS: 93351

== ENCOUNTER → 2022-11-02 15:44 | Outpatient (CLI) | payer OTHER, SELFPAY ==
--- NOTE | ~2022-11-02 | US_ITS ---
EXAMINATION:US venous doppler LE LT INDICATION:Left lower leg pain. TECHNIQUE: Multiple grayscale, color flow and Doppler images of the left lower extremity deep venous systems were obtained and reviewed. COMPARISON:No prior studies for comparison. FINDINGS: The common femoral, superficial femoral and popliteal veins demonstrate normal respiratory variation, augmentation and compressibility. Color flow is also seen within the posterior tibial, pe roneal, greater saphenous and profunda veins. IMPRESSION: 1: No lower extremity deep venous thrombosis. Reviewed, dictated and finalized at location L. 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
== END ==
PROVIDERS: PCP Internal Medicine; Visit Provider Clinical Nurse Specialist
DX: M79.662 Pain in left lower leg (principal)
CPT/HCPCS: 93971

== ENCOUNTER → 2023-03-28 12:05 | Outpatient (CLI) | payer OTHER, SELFPAY ==
--- NOTE | ~2023-03-28 | XR_ITS ---
EXAMINATION: XR chest 2V 03/28/2023 12:22 INDICATION: Asthma. PROCEDURE: 2 view chest COMPARISON: 04/21/2021 FINDINGS: The lungs are clear. The cardiomediastinal silhouette is within normal limits. There are no pleural effusions. There is no pneumothorax suspected. IMPRESSION: 1: NO ACUTE CARDIOPULMONARY DISEASE. Reviewed, dictated and finalized at location A.
== END ==
PROVIDERS: PCP Internal Medicine; Visit Provider Clinical Nurse Specialist
DX: J45.909 Unspecified asthma, uncomplicated (principal)
CPT/HCPCS: 71046

== ENCOUNTER → 2023-03-30 11:57 | Outpatient (CLI) | payer OTHER, SELFPAY ==
--- NOTE | ~2023-03-30 | MM_ITS ---
EXAMINATION: MM screening [facility] BI w negrito HISTORY: Screening mammogram TECHNIQUE: Craniocaudal and mediolateral oblique 3-D tomosynthesis images were obtained and synthetic 2-D images were generated. CAD analysis was submitted and interpreted. COMPARISON: 10/28/2020, 12/26/2018, 08/03/2017 BREAST PARENCHYMAL COMPOSITION: The breasts are heterogeneously dense, which may obscure small masses . FINDINGS: No suspicious mass, calcification, or architectural distortion are identified in either denilson ast to suggest malignancy. There has been no suspicious interval change. IMPRESSION: 1. No mammographic evidence of malignancy. 2. Recommend routine screening mammography in one year. BI-RADS Category 1: Negative Reviewed, dictated and finalized at location A.
== END ==
PROVIDERS: PCP Obstetrics & Gynecology; Visit Provider Obstetrics & Gynecology
DX: Z12.31 Encounter for screening mammogram for malignant neoplasm of breast (principal)
CPT/HCPCS: 77063; 77067

== ENCOUNTER 2024-05-28 08:52 | Emergency (ER) | payer BC, SELFPAY ==
[2024-05-28 08:57] VITALS: BP 108/77; PULSE 73; RESP 16; TEMP 36.5; O2SAT 100
--- NOTE | 2024-05-28 09:02 | ED.FEMALEGU ---
HPI - Female Genitourinary General Chief complaint: Urogenital-Female Stated complaint: Uti Symptoms Time Seen by Provider: 05/28/24 09:04 Source: patient, RN notes reviewed and old records reviewed Mode of arrival: ambulatory Limitations: no limitations History of Present Illness HPI Narrative: 54 year old female who presents to [facility] care with complaints of 3 day history of lower mid abdomen pain, voiding in small amount with painful burning and frequency of urination. Patient reports that she had last UTI last about 2 years. Patient reports that she has had ureteral stones many years ago, denies any CVA tenderness. Patient denies any nausea or vomiting or any fevers. MD elicited complaint: UTI Pertinent past history: diabetes and other (kidney stones, UTI) Onset (ago): day(s) (3) Location of symptoms: suprapubic Severity: mild Vaginal discharge: none Vaginal bleeding: none Related Data Home Medications Medication Instructions Recorded Confirmed blood sugar diagnostic (OneTouch #10 ea 07/30/19 06/22/23 Verio test strips) Vitamin B-12 1 tablet PO DAILY 10/01/19 05/28/24 psyllium husk 0.4 gram capsule 0.4 g PO DAILY 10/01/19 05/28/24 (Metamucil) pen needle, diabetic 31 gauge x #30 ea 05/27/20 06/22/23 3/16 (BD Ultra-Fine Mini Pen Needle) insulin aspart U-100 100 unit/mL See Rx Instructions .Route .COMPLEX 07/23/22 05/28/24 subcutaneous solution (Novolog U-100 Insulin aspart) perfluorohexyloctane (PF) 100 % 1 drp LEFT EYE Q4H 05/28/24 05/28/24 eye drops (Miebo (PF)) Allergies Allergy/AdvReac Type Severity Reaction Status Date / Time latex Allergy Severe Rash Verified 05/28/24 08:58 Penicillins Allergy Unknown Other Verified 05/28/24 08:58 venom-wasp Allergy Unknown SWELLING, Verified 05/28/24 08:58 THROAT SWELLING bee venom protein (honey bee) Allergy THROAT Verified 05/28/24 08:58 [bees] SWELLING mushroom Allergy THROAT Verified 05/28/24 08:58 SWELLING Statins Allergy Intermediate Unknown Uncoded 05/28/24 08:58 Review of Systems Review of Systems: CONSTITUTIONAL: Denies fever, chills, or sweats. CARDIOVASCULAR: Denies chest pain, palpitations, or edema. RESPIRATORY: Denies cough or dyspnea. GASTROINTESTINAL: Reports mid lower abdomen pain, no nausea, vomiting, or diarrhea. GENITOURINARY: Reports dysuria, frequency, voiding in small amounts. Denies flank pain or hematuria. SKIN: Denies rash or itching. MUSCULOSKELETAL: Denies back pain or myalgia. Denies CVA tenderness NEUROLOGIC: Denies headache All systems reviewed & are unremarkable except as noted in HPI and below PMFSH Past Medical History Medical History Anxiety Asthma Bronchitis COVID-19 GERD (gastroesophageal reflux disease) Right upper quadrant pain Subluxation of lens, left eye Varicose veins of both lower extremities Surgical History Surgical History H/O adenoidectomy H/O dilation and curettage H/O foot surgery Left foot bone replacement H/O shoulder surgery Right and left History of cataract surgery Right eye 02/2022 History of endometrial ablation History of hernia repair History of repair of ACL History of tonsillectomy Status post cervical polyp removal Family History Family History Mother Family history of thyroid disease Father Family history of blood dyscrasia Grandparent Cerebrovascular accident Other Hypertension Osteoarthritis Social History Social History Smoking status: Never smoker Second hand tobacco smoke exposure: No Alcohol intake: current Alcohol use details: rarely Substance use: never Substance use type: does not use Lack of Transportation: No Lack of Food: Never True Current Housing: I Have Housing Concerned Abou
[2024-05-28 09:12] LABS: EDUAAPPEAR Clear; EDUABILI Negative (Negative); EDUABLOOD Negative (Negative); EDUACOLOR1 Yellow; EDUAGLUCOSE Negative (Negative); EDUAKETONE 1+ (Negative); EDUALEUKO Negative (Negative); EDUANITRATE Negative (Negative); EDUAPROTEIN Negative (Negative); EDUAUROBILI 0.2
== END 2024-05-28 09:22 | disposition home or self-care (01) ==
PROVIDERS: Emergency Provider Registered Nurse; PCP Internal Medicine
DX: R30.0 Dysuria (principal); R35.0 Frequency of micturition; R10.30 Lower abdominal pain, unspecified; J45.909 Unspecified asthma, uncomplicated; K21.9 Gastro-esophageal reflux disease without esophagitis; Z86.16 Personal history of COVID-19
CPT/HCPCS: 81003; 87086; 99213; G0463

== ENCOUNTER 2024-10-30 12:12 | Outpatient (CLI) | payer BC, SELFPAY ==
--- NOTE | ~2024-10-30 | MM_ITS ---
EXAMINATION: MM screening [facility] BI w negrito HISTORY: Screening mammogram TECHNIQUE: Craniocaudal and mediolateral oblique 3-D tomosynthesis images were obtained and synthetic 2-D images were generated. CAD analysis was submitted and interpreted. COMPARISON: 03/30/2023, 10/28/2020, 12/26/2018 BREAST PARENCHYMAL COMPOSITION:Dense: The breasts are heterogeneously dense, which may obscure small masses. FINDINGS: No suspicious mass, calcification, or architectural distortion are identified in either denilson ast to suggest malignancy. There has been no suspicious interval change. IMPRESSION: No mammographic evidence of malignancy. Recommend routine screening mammography in one year. BI-RADS Category 1: Negative Reviewed, dictated and finalized at location . NING SPECIALIST
== END 2024-10-30 12:13 | disposition home or self-care (01) ==
LOC: MICIMG 12:13
PROVIDERS: PCP Obstetrics & Gynecology; Visit Provider Obstetrics & Gynecology
DX: Z12.31 Encounter for screening mammogram for malignant neoplasm of breast (principal)
CPT/HCPCS: 77063; 77067

== ENCOUNTER 2025-01-24 08:24 | Outpatient (CLI) | payer BC, SELFPAY ==
--- NOTE | ~2025-01-24 | CT_ITS ---
Non-contrast Head CT History: Dizziness and giddiness Technique: Axial non-contrast imaging of the brain was performed. Dose reduction technique was used on this scan by utilizing automated exposure control and iterative reconstruction technique. The dose -length product (DLP) was 645.69 mGy-cm. Findings: There is no evidence of intracranial hemorrhage, mass lesion, or acute infarct. Brain par enchyma appears normal. The ventricles and subarachnoid spaces are normal in size. The calvarium ap pears normal. The visualized paranasal sinuses and mastoid air cells are clear. Impression: No significant abnormality seen. Reviewed, dictated and finalized at location . Impression: No significant abnormality seen.
== END 2025-01-24 08:25 | disposition home or self-care (01) ==
PROVIDERS: PCP Internal Medicine; Visit Provider Student in an Organized Health Care Education/Training Program
DX: R26.89 Other abnormalities of gait and mobility (principal)
CPT/HCPCS: 70450

== ENCOUNTER 2025-02-04 21:28 | Emergency (ER) | payer BC, SELFPAY ==
[2025-02-04] VITALS (8 sets, daily range): BP systolic 120–196; BP diastolic 70–107; PULSE 68–82; RESP 12–16; TEMP 36.4; O2SAT 96–99
--- NOTE | ~2025-02-04 | XR_ITS ---
Portable chest x-ray Comparison: 03/28/2023 Clinical History: Chest pain Findings: Stable calcified granuloma left midlung. Lungs are otherwise clear, without focal consolida tion or pleural effusion. Cardiomediastinal silhouette is stable. Bones and soft tissues are unremar kable. Impression: No acute abnormality. Reviewed, dictated and finalized at location . Impression: No acute abnormality.
--- OUTSIDE RECORDS SUMMARY | 2025-02-04 21:31 | XMS_ITS | Encounter Summary ---
Author Organization [facility] Address [address] [place] [address] Care Team Providers Care Cloud Software Engineer Name Role Phone Milagromary annMason DO Primary Care Provider [phone] Encounter Details Date Type Department Care Team (Late st Contact Info) Description 03/01/2024 Lab Requisition [facility] - DermPath Lab [address] [place] [id number] Aris Dunn MD [address] [phone] Social History Tobacco Use Types Packs/Day Years Used Date Smoking Tobacco: Never Smokeless Tobacco: Never Comments No Sex and Gender Information Value Date Recorded Sex Assigned at Not on file 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 Gender Identity Female Sexual Orientation Not on file documented as of this encounter Plan of Treatment Not on file documented as of this encounter Procedures Procedure Name Priority Date/Time Associated Diagnosis Comments DERMATOPATHOLOGY Routine 02/28/2024 12:0 0 AM CDT documented in this encounter Results * DERMATOPATHOLOGY (02/28/2024 12:00 AM CDT) Case Report Dermatopathology Report Case: [id number] Authorizing Provider: Aris Dunn MD Collected: 02/28/2024 12:00 AM Ordering Location: [facility] - Received: 03/01/2024 12:26 PM DermPath Lab Pathologist: Jami Millan MD Specimen: Skin, left leg posterior 12:50 PM CDT DERMATOPATHOLOGY LABORATORY Final Diagnosis Specimen A. SKIN, left leg posterior: DERMATOFIBROMA, TRAUMATIZED (D23.9) 12:50 PM CDT DERMATOPATHOLOGY LABORATORY at 1250 CDT Clinical History Dermatofibroma, Nevus, BCC 12:50 PM CDT DERMATOPATHOLOGY LABORATORY Gross Description Specimen A: Received is one formalin filled container labeled with the patient's name and designated left leg posterior. The specimen consists of a shave biopsy measuring 6x4x2 mm. Jar 0. 12:50 PM CDT DERMATOPATHOLOGY LABORATORY Microscopic Description Specimen A. SKIN, left leg posterior: There is epidermal hyperplasia. Within the dermis, there are fibrohistiocytic cells in haphazard array among coarse collagen bundles. The proliferation impinges upon the immediately overlying epidermis, which is thinned, with epidermal hyperplasia toward the periphery of the lesion. There are extravasated erythrocytes in the upper part of the lesion and parakeratosis with serum. 12:50 PM CDT DERMATOPATHOLOGY LABORATORY Disclaimer An external and internal positive and negative controls are appropriate for the histochemical, immunohistochemical and immunofluorescence stain(s) in this case (if any), except where stated explicitly. The performance characteristics of the stain(s) cited in this report were developed and its performance characteristic determined by the Dermatopathology Laboratory at [facility], directed by Dr. Keo Bee. These tests need not be, and therefore are not, approved by the [place] Food and Drug Administration. The tests are used for clinical purposes. Billing Codes Specimen Charges Stain Charges 10565 1 12:50 PM CDT DERMATOPATHOLOGY LABORATORY Embedded Images 12:50 PM CDT DERMATOPATHOLOGY LABORATORY Pathology/Cytolog y TISSUE SPECIMEN FROM SKIN / Unknown 02/28/2024 03/01/2024 12:26 PM CDT us Aris Dunn MD LAB - PATHOLOGY/CYTOLOGY ORDERAB LES Final Result DERMATOPATHOLOGY LABORATORY [facility] - Department of Dermatology [facility] Special[facility] [place], [address] [phone] documented in this encounter Visit Diagnoses Not on filedocumented in this encounter Care Teams Cloud Software Engineer Relationship Specialty Start Date End Date Mason Mijares DO PCP - General Internal Medicine 11/09/16 documented as of this encounter
--- OUTSIDE RECORDS SUMMARY | 2025-02-04 21:31 | XMS_ITS | Clinical Summary ---
Author Organization [facility] Address [address] [place] [address] Care Team Providers Care Robotics Software Engineer Name Role Phone Mason Mijares DO Primary Care Provider Source Comments [facility],non-owned Affiliates and Associated Physician Practices is amultiple site organization consisting of ambulatory clinics and hospital sitesin [place], [place], [place] and [place]. This disclosure is being madepursuant to the Care Everywhere program and may not contain all information available regarding this patient. Last updated 18.[facility] Allergies Active Allergy Reactions Criticality Noted Date Comments Latex Rash Medium 11/09/2016 Silicone Rash Medium 11/09/2016 Medications * Be aware that medications may not be up to date on this document. Alwaysverify current medications with the patient. valACYclovir (VALTREX) 1 GM tabletIndication s:Irritable bowel syndrome with both constipation and diarrhea TK 1 T PO Q DAY 0 08/17/20 16 Active Insulin Regular Human (HUMULIN R IJ)Indications:I rritable bowel syndrome with both constipation and diarrhea by Injection route once daily Active Insulin Lispro Prot & Lispro (HUMALOG MIX 50/50 PEN SC)Indications:I rritable bowel syndrome with both constipation and diarrhea Inject 3 Units subcutaneously 3 times daily,before breakfast/lunch/be dtime Active polyethylene glycol 3350 (MIRALAX) powderIndication s:Constipation Take 17 g by mouth 2 times daily 17 grams with 8 oz of water, twice daily Reasons: Constipation 1054 g 11 11/10/19 17 Active Additional Information Patient not taking.Reported on 10/02/2018 omeprazole (PRILOSEC) 20 MG capsuleIndicatio ns:Irritable bowel syndrome with both constipation and diarrhea Take 1 Cap by mouth daily before breakfast 90 Cap 3 12/22/19 17 Active Active Problems Problem Noted Date Diagnosed Date Superficial nonerosive nonspecific gastritis Overview (11/26/2016): Dr. Martinez/GI 11/2016 Internal hemorrhoids 11/26/2016 Irritable bowel syndrome wit h both constipation and diarrhea 11/26/2016 S/P dilatation of esophageal stricture at GE nick ction 11/26/2016 Overview (11/26/2016): Dr. 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 Gender Identity Female Sexual Orientation Not on file Last Filed Vital Signs Vital Sign Reading Time Taken Comments Blood Pressure 110/70 10/02/2018 11:23 AM AIRCREWMAN Pulse 74 10/02/2018 11:23 AM AIRCREWMAN Temperature 37.2 C (99 F) 10/02/2018 11:23 AM AIRCREWMAN Respiratory Rate 16 10/02/2018 11:23 AM AIRCREWMAN Oxygen Saturation 98% 10/02/2018 11:23 AM AIRCREWMAN Inhaled Oxygen Concentration - - Weight 88 kg (194 lb) 10/02/2018 11:23 AM AIRCREWMAN Height 167.6 cm (5' 6) 10/02/2018 11:23 AM AIRCREWMAN Body Mass Index 31.31 10/02/2018 11:23 AM AIRCREWMAN Plan of Treatment Health Maintenance Due Date Last Done Comments COLOGUARD (AGES 45-75) - COL ON CA SCREENING 1970 CT COLONOGRAPHY - COLON CA SCREENING 1970 FIT - COLON CA SCREENING 1970 FLEX SIG - COLON CA SCREENING 1970 LIPID TESTING 1970 MAMMOGRAM 1970 HIV SCREENING 01/09/1984 HEPATITIS C SCREENING 01/04/1987 DTAP/TDAP/TD VACCINES (1 - Tdap) 01/09/1988 HEPATITIS B VACCINE (1 of 3 - 19+ 3-dose series) 01/09/1988 PAP with HPV 1999 SCREENING FOR DIABETES 10/02/2018 PNEUMOCOCCAL VACCINE 50+ (1 of 1 - PCV) 2019 ZOSTER VACCINE (1 of 2) 2019 COVID-19 VACCINE (1 - 2023-2 5 season) 2024 DEPRESSION SCREENING 09/05/2024 INFLUENZA VACCINE (Season Ended) 2025 COLON MONITORING 11/26/2026 11/26/2016 COLONOSCOPY - COLON CA SCREENING 11/29/2026 11/29/2016, 11/26/2016 Colorectal Cancer Screening 11/29/2026 HIB VACCINE Aged Out No longer eligi ble based on patient's age to complete this topic HPV VACCINE Aged Out No longer eligi ble based on patient's age to complete this topic MENINGOCOCCAL (Group B) VACCINE SHARED DECISION-MAKING Aged Out No longer eligible based on patient's age to complete this topic MENINGOCOCCAL GROUPS A/C/Y/W VACCINE Aged Out No longer eligible b ased on patient's age to complete this topic Procedures Procedure Name Priority Date/Time Associated Diagnosis Comments ENDOSCOPY, COLON, DIAGNOSTIC Routine 11/26/2016 Change in bowel habit Nausea and vomiting, intractability of vomiting not specified, unspecified vomiting type Irritable bowel syndrome with both constipation and diarrhea Abdominal pain, LLQ (left lower quadrant) from Last 3 Months or Most Recently Relevant to Health Maintenance Results * ENDOSCOPY, COLON, DIAGNOSTIC (11/26/2016) Ugo Martinez MD GI PROCEDURE ORDERABLES Final Result [facility] RESULT SCAN from Last 3 Months or Most Recently Relevant to Health Maintenance Insurance [facility] Address: [address] [place] [address] [employer] Member Subscriber Plan / Payer (Ef fective 2023-Present) Name:Natalia Morrissey Carla Relation to Subscriber:Self Name:Natalia Morrissey Payer ID:[id number] (NAIC) Group ID:Not on file Type:O Address: [address] [place] [address] [employer] Care Teams Robotics Software Engineer Relationship Specialty Start Date End Date Mason Mijares DO PCP - General Internal Medicine 11/09/16
--- OUTSIDE RECORDS SUMMARY | 2025-02-04 21:31 | XMS_ITS | Encounter Summary ---
Author Organization [facility] Address [address] [place] [address] Phone Care Team Providers Care Wire Bender Name Role Phone Mason Mijaresian Primary Care Provider Glory Sanabria MD Unavailable Reason for Visit * Reason Comments Medication Refill Encounter Details Date Type Department Care Team (Late st Contact Info) Description 01/23/2024 Refill [facility] - Endocrinology - [place] [address] [place] [address] Glory Sanabria MD [address] [id number] Medication Refill Social History Tobacco Use Types Packs/Day Years Used Date Smoking Tobacco: Never Smokeless Tobacco: Never Alcohol Use Standard Drinks/Week Comments Never 0 (1 standard drink = 0.6 oz pur e alcohol) Comments Unknown Sex and Gender Information Value Date Recorded Sex Assigned at Not on file Legal Sex Female 11:15 PM CDT Gender Identity Not on file Sexual Orientation Not on file documented as of this encounter Miscellaneous Notes * Telephone Encounter - Desirae Staton RN - 01/23/2024 9:12 AM CDT Medication(s) refilled and signed per [facility] Chronic Medication Refill Standing Order for Pediatric and Adult Patients. documented in this encounter Plan of Treatment Not on file documented as of this encounter Visit Diagnoses Not on filedocumented in this encounter Care Teams Wire Bender Relationship Specialty Start Date End Date Mason Mijares DO [address] [facility] [place] [address] PCP - General Internal Medicine 06/25/22 Glory Sanabria MD [address] [id number] Consulting Physician Endocrinology 12/19/23 documented as of this encounter
--- OUTSIDE RECORDS SUMMARY | 2025-02-04 21:31 | XMS_ITS | Continuity of Care Document ---
Author Organization [employer] [facility] Address [id number] [place] [address] Deleon [address] [place] [phone] Phone Care Team Providers Care Motion Picture Cameraman Name Role Phone Aleisha OD, Rkysta Unavailable Unavailable Allergies, Adverse Reactions, Alerts Substance Reaction Status Criticality ANESTHESIA TRAY Active No Informati on latex Active No Information Medications Medication Instructions Dosage Effective Dates (start - stop) Status Comments Restasis 0.05 % eye drops in a dropperette instill 1 drop by ophthalmic route every 12 hours into both eyes 1 drop - Active Miebo 100 % eye drops instill 1 drop by ophthalmic route 4 times every day into affected eye(s) 1.00 drop - Active VITAMIN A (unknown strength) take 1 capsule by oral route every day Not Available - Active albuterol sulfate HFA 90 mcg/actuation aerosol inhaler inhale 2 puff by inhalation route every 4 - 6 hours as needed 180 MCG - Active omeprazole 40 mg capsule,delayed release take 1 capsule by oral route every day before a meal 40 MG - Active Humalog Mix 75-25 (U-100) Insulin 100 unit/mL subcutaneous suspension inject by subcutaneous route per prescriber's instructions. Insulin dosing requires individualization. 0.00 - Active Procedures Procedure Date No Charge Optomap Fundus Photos Office/outpatient Visit, Est No Charge Refraction No Charge Optomap Fundus Photos Post-op Follow-up Visit After Cataract Laser Surgery No Charge Refraction Fundus Photography W/ Report Office/outpatient Visit, Est No Charge Refraction Office/outpatient Visit, Est Xcellent A 3000 60 C No Charge Optomap Fundus Photos 024 Office/outpatient Visit, Est Fundus Photography W/ Report Office/outpatient Visit, Est No Charge GDX Retina Fundus Photography W/ Report Office/outpatient Visit, Est Post-op Follow-up Visit No Charge Optomap Fundus Photos 023 No Charge Refraction After Cataract Laser Surgery Office/outpatient Visit, Est Refraction Eye Exam & Treatment No Charge Refraction Post-op Follow-up Visit Post-op Follow-up Visit Post-op Follow-up Visit Exchange Lens Prosthesis No Charge Refraction Post-op Follow-up Visit Post-op Follow-up Visit Post-op Follow-up Visit Remove Cataract, Insert Lens No Charge Refraction No Charge GDX Retina Corneal Topography Office/outpatient Visit, Est IOLMaster IOLMaster No Charge Optomap Fundus Photos Office/outpatient Visit, Est No Charge Optomap Fundus Photos 022 No Charge Refraction Office/outpatient Visit, New Latanya Eye Mask Advance Directives Directive Yes / No Effective Date File Name No Information Encounters Encounter Description Practice Location Reason(s) For Visit Diagnoses Date Provider Providers Copied on Encounter Office/outpa tient Visit, Est [facility], [id number] [place] [address] [address], [place], [place], [address], [place] tel:[phone] SEC [place] Professional Follow up visit (chief complaint) Dry eye syndrome of bilateral lacrimal glandsPresen ce of intraocular lensVitreous degeneration of right eye January- 3202 5 Aleisha OD Krysta. [address] [place] [address] [address], [address], [place], [place], [address], [place]. tel:[phone] Glory Sanabria MD.Referrin g Provider: Kenton Nelson, [address] [facility] [address], [place], [address]. tel:[phone] [facility], [address] [place] [address] [address], [place], [place], [address], [place] tel:[phone] DEI Ehrenberg YAG PC Post-op (chief complaint) Dry eye syndrome of bilateral lacrimal glandsPostop check Dec- 5 Aleisha OD Krysat. [address] [place] [address] [address], [address], [place], [place], [address], [place]. tel:[phone] Specialist: Glory Sanabria MD, [address] [place], [address]. tel:[phone] ring Provider: Kenton Nelson, [address] [facility] [address], [place], [address]. tel:[phone] Office/outpa tient Visit, Est [facility], [address] [place] [address] [address], [place], [place], [address], [place] tel:[phone] [place] Professional Follow up visit (chief complaint) Other secondary cataract, right eye Mar-0 4-202 5 [place] Abdi. [address] [place] [address], [address], [place], [place], [address], [place]. tel:[phone] Joss Tadeo MD.Natalya Gauthier MD.Referrin g Provider: Kenton Nelson, [address] [facility] [address], [place], [address]. tel:[phone] Office/outpa tient Visit, [facility], [address] [place] [address] [address], [place], [place], [address], [place] tel:[phone] SEC [place] Professional Complete Exam (chief complaint) Dry eye syndrome of bilateral lacrimal glandsOther secondary cataract, right eyeType 1 diabetes mellitus without complication s 4 Aleisha OD Krysta. [address] [place], [place] [address]i, [address], [place], [place], [address], [place]. tel:[phone] Joss Tadeo MD.Natalya Gauthier MD.Referrin g Provider: Kenton Nelson, [address] [facility] [address], [place], [address]. tel:[phone] Office/outpa tient Visit, [facility], [address] [place] [address] [address], [place], [place], [address], [place] tel:[phone] SEC [place] Professional Flashes lights (chief complaint) Type 1 diabetes mellitus without complication sDry eye syndrome of bilateral lacrimal glandsTrigem inal nerve disorder, unspecified 4 Aleisha OD Krytsa. [address] [place] [address] [address], [address], [place], [place], [address], [place]. tel:[phone] Joss Tadeo MD.Natalya Gauthier MD.Referrin g Provider: Kenton Nelson, [address] [facility] [address], [place], [address]. tel:[phone] Office/outpa tient Visit, [facility], [address] [place] [address] [address], [place], [place], [address], [place] tel:[phone] [place] Professional Follow up visit (chief complaint) Vitreous degeneration , left eye 4 Katrin OD Stacy. [address] [place] [address] [address], [address], [place], [place], [address], [place]. tel:[phone] Joss Tadeo MD.Natalya Gauthier MD.Referrin g Provider: Kenton Nelson, [address] [facility] [address], [place], [address]. tel:[phone] Office/outpa tient Visit, [facility], [address] [place] [address] [address], [place], [place], [address], [place] tel:[phone] SEC Sudhakar [place] Professional Complete Exam (chief complaint) Type 1 diabetes mellitus without complication sPresence of intraocular lensOther secondary cataract, right eyeVitreous degeneration , left eyeDry eye syndrome of bilateral lacrimal glands 3 Katrin KRAMER Stacy. [facility] [address] [employer], [address], [place], [place], [address], [place]. tel:[phone] Joss Tadeo MD.Natalya Gauthier MD.Speciali [place]: [place], [address] [facility] [address], [place], [address]. [phone] ring Provider: Stacy Wilkes OD L, [facility] [address], [place], [address]. tel:[phone] [facility], [address], [place], [place], [address], [place] tel:[phone] SEC Sudhakar [place] Professional Post-Op (chief complaint) Postop check Kimmy Fung. [address] [facility], [address], [place], [place], [address], [place]. tel:[phone] Joss Tadeo MD.Natalya Gauthier MD.Referrin g Provider: Kenton Nelson, [address] [facility] [address], [place], [address]. tel:[phone] Office/outpa tient Visit, [facility], [address] [place] [address] [address], [place], [place], [address], [place] tel:[phone] SEC Sudhak[place] Professional YAG capsulotomy evaluation (chief complaint) Other secondary cataract, bilateralOth er secondary cataract, left eye 3 Jaye Patton. [address] [place] [address] [facility], [address], [place], [place], [address], [place]. tel:[phone] Specialist: [place], [address] [facility] [address], [place], [address]. tel:[phone] alist: Natalya Gauthier MD, [address] [facility] [address], [place], [address]. tel:[phone] ring Provider: Kenton Nelson, [address] [facility] [address], [place], [address]. tel:[phone] [facility], [address] [place] [address] [address], [place], [place], [address], [place] tel:[phone] SEC Sudhakar [place] Professional Complete Exam (chief complaint) PresbyopiaPr esence of intraocular lensType 1 diabetes mellitus without complication sKeratoconju nctivitis sicca of both eyes not due to Sjogren's syndrome Dec-0 3 Katrin OD Stacy. [address] [place], [place] [address]crest [facility], [address], [place], [place], [address], [place]. tel:[phone] Joss Tadeo MD.Referrin g Provider: Kenton Nelson, [address] [facility] [address], [place], [address]. tel:[phone] [facility], [address] [place], [place] [address] [address], [place], [place], [address], [place] tel:[phone] SEC Sudhakar [place] Professional 2 wk IOL exchange PO (10/27/22) (chief complaint) Postop check Nov- 3 Katrin OD Stacy. [facility] [address], [address], [place], [place], [address], [place]. tel:[phone] Joss Tadeo MD.Referrin g Provider: Kenton Nelson, [address] [facility] [address], [place], [address]. tel:[phone] [facility], [address] [place] [address] [address], [place], [place], [address], [place] tel:[phone] [place] Professional 1 week po IOL Exchange OS (10/27/22) (chief complaint) Postop check Nov-0 3 Katrin OD Stacy. [address] [place], [place] [address], [address], [place], [place], [address], [place]. tel:[phone] Joss Tadeo MD.Referneisha damon Provider: Kenton Nelson, [address] [facility] [address], [place], [address]. tel:[phone] [facility], [address] [place] [address] [address], [place], [place], [address], [place] tel:[phone] SEC [place] Professional post op (chief complaint) Postop check Oct- 3 Katrin OD Stacy. [address] [place], [place] [address]crest [employer], [address], [place], [place], [address], [place]. tel:[phone] Joss Tadeo MD.Referneisha damon Provider: Kenton Nelson, [address] [facility] [address], [place], [address]. [phone] [facility], [address] [place] [address] [address], [place], [place], [address], [place] tel:[phone] [facility] [place] No Information 3 Perez Fung. [address] [facility], [facility] [address], [place], [place], [address], [place]. tel:[phone] Referring Provider: Kenton Nelson, [address] [facility] [address], [place], [address]. tel:[phone] [facility], [address] [place] [address] [address], [place], [place], [address], [place] tel:[phone] SEC Sudhakar [place]NA[place] Professional Post-Op (chief complaint) Postop checkOther mechanical complication of intraocular lens, subsequent encounter b1 3 Perez Fung. [address] [employer], [place], [place], [address], [place]. tel:[phone] Joss Tadeo MD.Referrin g Provider: Kenton Nelson, [address] [employer] [address], [place], [address]. tel:[phone] [facility], [address] [place] [address] [address], [place], [place], [address], [place] tel:[phone] SEC Sudhakar [place] Professional 1 week s/p PCIOL (chief complaint) Postop check b-0 3 Katrin OD Stacy. [address] [place], [place] [address], [address], [place], [place], [address], [place]. tel:[phone] Joss Tadeo MD.Referneisha g Provider: Kenton Nelson, [address], [place], [address]. tel:[phone] [facility], [address], [place], [place], [address], [place] tel:[phone] SEC Sudhakar [place] Professional post op (chief complaint) Postop check Feb-0 2 3 Katrin OD Stacy. [facility] [address], [address], [place], [place], [address], [place]. tel:[phone] Joss Tadeo MD.Referneisha g Provider: Kenton Nelson, [address], [place], [address]. tel:[phone] [facility], [address] [address], [place], [place], [address], [place] tel:[phone] [facility] No Information 3 Perez Fung. [address], [place], [place], [address], [place]. tel:[phone] Joss Tadeo MD.Phoebe damon Provider: Kenton Nelson, [address], [place], [address]. tel:[phone] Office/outpa tient Visit, [facility], [address] [place] [address] [address], [place], [place], [address], [place] tel:[phone] SEC [place] Professional Cataract evaluation (chief complaint) Keratoconjun ctivitis sicca of both eyes not due to Sjogren's syndromePres ence of intraocular lensType 1 diabetes mellitus without complication Purnima-related nuclear cataract, right eyeOther secondary cataract, left eye 2 Perez Fung. [address], [address], [address], [place]. tel:[phone] Joss Tadeo MD.Referneisha damon Provider: Kenton Nelson, [address], [place], [address]. tel:[phone] Office/outpa tient Visit, [facility], [address] [place] [address] [address], [place], [place], [address], [place] [phone] SEC [place] Professional WIE (chief complaint) Presence of intraocular lensType 1 diabetes mellitus without complication sKeratoconju nctivitis sicca of both eyes not due to Sjogren's syndromeComb ined forms of age-related cataract, left eye Aug- 2 Perez Fung. [address], [place], [place], [address], [place]. tel:[phone] Joss Tadeo MD.Phoebe damon Provider: Kenton Nelson, [address], [place], [address]. tel:[phone] Office/outpa tient Visit, [facility], [address] [address], [place], [place], [address], [place] tel:[phone] [place] Professional flashes of light (chief complaint) Presence of intraocular lensCombined forms of age-related cataract, left eyeKeratocon junctivitis sicca of both eyes not due to Sjogren's syndromeType 1 diabetes mellitus without complication s Oct-3 2 Perez Fung. [address] [facility], [address], [place], [place], [address], [place]. tel:[phone] Specialist: [place], [address] [facility] [address], [place], [address]. tel:[phone] ring Provider: Kenton Nelson, [address] [facility] [address], [place], [address]. tel:[phone] Family History Family Member Type Diagnosis Age At Onset Problem Family history of Macular de generation Payers Payer name Insurance type Covered alliance party ID Authormandaa neomi(s) [facility] [id number] Social History Type Description Quantity Date Captured Comments Alcohol Use Details Caffeine Use Details Tobacco Use Status Current non-smoker Smoking Status Never smoker Non-Smoking Tobacco Use Details : No Details Available : No Details Available Sex Female Chief Complaint And Reason For Visit From encounter dated '01/15/2025 14:15'. Follow up visit (chief complaint). Description: The 55 year old patient presents for evaluation of Follow up visit in the right eye. Patient states last week she noticed a new floater OD and by the end of the week she had flashes of lights with a ring in her OD vision. Patient states this is the exact same thing as what happened to OS. Patient states about an hour ago she noticed a flash of lightand she thinks that was in her OS but not sure. Patient is really worried. Reason For Referral Reason For Referral No Information Plan Of Treatment Date Type Action Status Appointment Lyudmila Field BOOKED Patient Education Learning About Vitreous Detachment completed Patient Education Learning About Vitreous Detachment completed Patient Education Learning About YAG Lase r Capsulotomy completed Patient Education Dry Eyes: Care Instruct ions completed Patient Education Dry Eyes: Care Instruct ions completed History Of Present Illness Encounter Date Complaint History Of Prese nt Illness Follow up visit The 55 year old patient presents for evaluation of Follow up visit in the right eye. Patient states last week she noticed a new floater OD and by the end of the week she had flashes of lights with a ring in her OD vision. Patient states this is the exact same thing as what happened to OS. Patient states about an hour ago she noticed a flash of light and she thinks that was in her OS but not sure. Patient is really worried. YAG PC Post-op The 54 year old patient presents for evaluation of YAG PC (11/06/24) Post-op in the right eye. Pt reports vision OD improved after laser but not 100 percent. Pt states this week had new onset of floaters OD. Pt states eyes have been feeling pretty good, reports having a little dryness and irritation if outside with all the allergens. Pt states has been having episodes of extreme dizziness when first lying down or getting up, lasting for about 1 minute, for past month. Pt using Miebo, ran out of Restasis over a month ago. Pt taking vitamin A. Pt states Zinc made her sick and has not been able to order recommended omega 3. Follow up visit The 54 year old patient presents for a yag pc OD evaluation per Dr. Moraes. Patient is bothered by glare around lights at night. Patient c/o blurry vision and sometimes it is worse then others. Patient has a hard time seeing road signs. Complete Exam The 54 year old patient presents for evaluation of Complete DM Exam in the right eye and left eye. Pt states no changes in OU since last visit. Dr. Sanabria follows pt for Diabetes Type I and last A1C was 7.5 and last blood sugar reading was 152. Flashes lights The 54 year old patient presents for evaluation of Flashes lights in the left eye. Pt states for the past month having flashes lights in OS. Pt gets ONOFRE's from Left side of head. Pt. states even sensitive to touch OS. Pt states she finds if takes migraine medicine ONOFRE does go away temporally. Pt also finds her vision in OD is not as sharp. Pt is IDDM I followed by Dr. Sanabria. Pt's last HA1C was 7.8. No history of MRI since symptoms started. Follow up visit The 53 year old patient presents for evaluation of PVD Follow up visit in the left eye. Pt states sometimes she has pain inside her eye area OS, blurry spot is still there and bothersome. Pt states she is light sensitive and sometimes even has to watch TV with her sunglasses on in their living room due to the natural light. Complete Exam The 53 year old patient presents for evaluation of Complete DM Exam in the right eye and left eye. Pt states that starting Tuesday they started noticing black dots in OS, then those started going away then pt started noticing a blurry spot, pt states that when that went away now its just two lines in vision in OS. Pt follows Dr. Tadeo for Diabetes type I and last A1C was 7.3 and last blood sugar reading was 199. Pt takes Restasis QAM OU. Post-Op The 53 year old patient presents for a 1 week post op YAG PC OS. Patient states vision OS is better. Patient states she had a few floaters and they are going away. YAG capsulotomy evaluation The 4 4 year old patient presents for evaluation of YAG capsulotomy evaluation in the right eye and left eye. Pt. states her vision is not as sharp the past month. Pt. is having trouble reading even with her glasses on. Pt. states still seeing flashing of lights OS and this am saw one in OD. Pt. states h/o floaters. Pt. 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 Pt. states her last HA1C was 7.6. Pt. is using Restasis ou bid and ARED's II po bid. Complete Exam The 52 year old patient presents for evaluation of Complete Exam in the right eye and left eye. Patient states she is here for her glasses rx. Patient just had her medical exam with Dr. Todd. 2 wk IOL exchange PO (10/27/22) T he 52 year old patient presents for evaluation of 2 wk IOL exchange PO (10/27/22) in the left eye. Pt reports she is using Pred BID OS and Ketorolac BID OS. Pt reports OS feels like OS is swollen and causing a headache, intermittent, x 2 wks. Pt reports she notices a flutter of light in temporal edge of OS intermittent since CE. Pt reports OS is a little blurry but she thinks that is because of her astigmatism. 1 week po IOL Exchange OS () The 52 year old patient presents for evaluation of 1 week po IOL Exchange OS (10/27/22). Pt reports good comfort and vision OS. Pt reports taking Pred, Ketorolac, and Vigamox QID OS. post op The 52 year old patient presents for a 1 day post op IOL exchanges OS. Patient is using Pred, Vigamox and Ketorolac qid OS. Patient states OS feels a little scratchy and vision seems pretty good. Post-Op The 52 year old patient presents for a 2 week post op CE OD. Patient is using Pred and Ketorolac bid OD. Patient states OD is doing good. Patient states she really notices a differnece between her eyes. 1 week s/p PCIOL The 52 year old patient presents for evaluation of 1 week s/p PCIOL in the right eye (10/06/2022) Patient states VA is good. Patient using p/o gtts as directed. post op The 52 year old patient presents for a 1 day post op CE OD. Patient is using Pred, Vigamox and Ketorolac qid OD. Patient denies any pain or discomfort. Patient states vision seems ok OD. Cataract evaluation The 52 year old patient presents for a cataract evaluation per Dr. Todd for IOL exchange OS. Patient avoids driving at night due to glare. Patient has a hard time reading small print and has a hard time watching TV. WIE The 52 year old patient presents for evaluation of WIE in the left eye. Patient is a Type I diabetic. Patient states she has increased flashes of lights OS. Patient had bronchitis 1 week ago and was coughing a lot. Patient said on Moi schuyler she has an increase in flashes of lights OS. Patient is using Restasis bid ou. Patient states 1 day she counted 22 flashes of lights she had in OS. flashes of light The 52 year old patient presents for evaluation of flashes of light and IOL movement in the left eye. Hx of Synergy TORIC IOL OS. Patient states she feels something is wrong with the lens implant that was done in February [address] Abdalla. Patient states every since the surgery she has had problems, pt states she can lay on her left side and feel the lens move she continues to see flashes of light and has a lot of floaters as well. Patient states she was treated for Iritis and told she has dry eyes. Patient states she can feel the edge of the IOL. Patient using Pataday prn OU. Patient states she was on Xiidra and stopped the gtt and it seems the flashes has stopped. Patient is a Type 1 diab, BS checked this am @ 131, a1c 7.6, and Dr. Tadeo treats her diab. Patient has difficulty seeing in bright sunlight and unable to drive at night due to glare with both eyes. Patient states distance VA is blurry, VA over all isn't good and wishes she did not have the cataract sx. Functional Status Date Functional Assessmen t No Information Instructions Date Instruction Additional Infor parth Impression/Plan Impression/Plan 3-4 weeks with Aleisha or Katrin PO YAG Related to Other secondary cataract, right eye Impression/Plan Related to Other secondary cataract, right eye Impression/Plan Impression/Plan Impression/Plan Impression/Plan Impression/Plan Impression/Plan Impression/Plan Impression/Plan Impression/Plan Impression/Plan Impression/Plan Impression/Plan Impression/Plan Impression/Plan Impression/Plan Impression/Plan Assessments Type Assessment Date assessment Dry eye syndrome of bilateral la crimal glands assessment Presence of intraocular lens January assessment Vitreous degeneration of right e ye Patient Care Teams Name Effective Dates (start - stop) Status Members No Information
--- OUTSIDE RECORDS SUMMARY | 2025-02-04 21:31 | XMS_ITS | Continuity of Care Document ---
Author Organization Formerly [facility] Address [address] [place] [address] [place] [address] Phone Care Team Providers Care Transportation Clerk Name Role Phone [facility] Unavailable Unavail able Procedures Procedure Date Corneal Topography Advance Directives Directive Yes / No Effective Date File Name No Information Encounters Encounter Description Practice Location Reason(s) For Visit Diagnoses Date Provider Providers Copied on Encounter [facility], [address], [place], [place], [id number], [place] tel:[phone] [facility] No Information [facility] . [address], [place], [id number], [place]. tel:[phone] Referring Provider: Joe Duenas OD F, [address] [facility] [address], [place], [address]. tel:[phone] Family History Family Member Type Diagnosis Age At Onset No Information Payers Payer name Insurance type Covered constitution party ID Authoriza tion(s) No Information Social History Type Description Quantity Date Captured Comments Sex Female Smoking Status No Information Chief Complaint And Reason For Visit No Information Reason For Referral Reason For Referral No Information History Of Present Illness Encounter Date Complaint History Of Prese nt Illness No Information Functional Status Date Functional Assessmen t No Information Instructions Date Instruction Additional Infor mation No Information Assessments Type Assessment Date No Information Patient Care Teams Name Effective Dates (start - stop) Status Members No Information
--- OUTSIDE RECORDS SUMMARY | 2025-02-04 21:32 | XMS_ITS | Clinical Summary ---
Author Organization [facility] Address [address] [place] [address] Phone Care Team Providers Care Gis Instructor Name Role Phone PamelatiffanyMason DO Primary Care Provider Glory Sanabria MD Unavailable Allergies Active Allergy Reactions Criticality Noted Date Comments Bee Venom Anaphylaxis,Anxiety, Itchi ng,Rash,Shortness of Breath,Swelling High 02/10/1974 Latex Rash Medium 11/09/2016 Molds & Smuts Unknown 08/06/2023 Mushroom Extract Complex (Obsolete) Anaphylaxis,Vomiting High 03/02/2020 Penicillins Unknown 08/06/2023 Silicone Rash Medium 11/09/2016 Medications OMEPRAZOLE PO Take by mouth. A ctive Insulin Degludec (Tresiba) 100 UNIT/ML Solution 25 1e11 Vector Genomes by Subcutaneous route daily. Active niacin 500 MG Tablet Take 500 mg by mouth daily. Active GNP GARLIC EXTRACT PO Take by mouth. Acti ve olopatadine (PATADAY) 0.2 % Solution 1 Active montelukast (SINGULAIR) 10 MG Tablet Take 10 mg by mouth daily. Active Insulin Pen Needle (Global Ease Inject Pen [place]) 32G X 4 MM Misc Use to take insulin 4 x day 2 Active fluticasone-nahid meterol (ADVAIR) 250-50 MCG/ACT AEROSOL POWDER, BREATH ACTIVATED take 1 Puff by inhalation. 3 Active ezetimibe (ZETIA) 10 MG Tablet Take 10 mg by mouth daily. 3 Active EPINEPHrine (EPIPEN) 0.3 MG/0.3ML Solution Auto-injector 0.3 mg by Subcutaneous route. 0 Active cycloSPORINE (Restasis) 0.05 % Emulsion 2 Active cyanocobalamin 1000 MCG Tablet Take 1,000 mcg by mouth. Active Continuous Glucose Transmitter (Dexcom G6 Transmitter) Misc CHANGE TRANSMITTER EVERY 90 DAYS. 4 Active Ozempic, 0.25 or 0.5 MG/DOSE, 2 MG/3ML Solution Pen-injector 0.25 mg SC weekly for 4 weeks and 0.5 mg SC weekly for 4 weeks 6 mL 4 Active Continuous Glucose Sensor (Dexcom G6 Sensor) Misc CHANGE SENSOR EVERY 10 DAYS. 9 Each 9 4 Active Continuous Glucose Sensor (Dexcom G7 Sensor) Misc EVERY 10 DAYS 9 Each 1 5 Active Continuous Glucose Tank House Supervisor (Dexcom G7 Tank House Supervisor) Device CHECK BLOOD GLUCOSE BEFORE EACH MEAL AND AT BEDTIME 1 Each 5 Active insulin lispro (HumaLOG) 100 UNIT/ML Solution PER INSULIN PUMP SETTING, UP TO 50 UNITS PER DAY 50 mL 3 5 Active Insulin Disposable Pump (Omnipod 5 [id number] Pods Gen 5) Misc CHANGE EVERY 3 DAYS 30 Each 9 5 Active Active Problems Problem Noted Date Diagnosed Date 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 02/27/2024 Class 1 obesity due to exces s calories with serious comorbidity and body mass index (BMI) of 31.0 to 31.9 in adult 02/27/2024 Encounters Date Type Department Care Team Description 11/27/2024 Refill [facility] Medical [facility] - Endocrinology [facility] [address] [place] [address] Glory Sanabria MD Medication Refill 11/16/2024 Refill [facility] - Endocrinology [facility] [address] [place] [address] Glory Sanabria MD Medication Refill from Last 3 Months Social History Tobacco Use Types Packs/Day Years Used Date Smoking Tobacco: Never Smokeless Tobacco: Never Tobacco Cessation:Counseling Given: Not Answered Alcohol Use Standard Drinks/Week Comments Never 0 (1 standard drink = 0.6 oz pur e alcohol) Comments Unknown Sex and Gender Information Value Date Recorded Sex Assigned at Not on file Legal Sex Female 11:15 PM CDT Gender Identity Not on file Sexual Orientation Not on file Last Filed Vital Signs Vital Sign Reading Time Taken Comments Blood Pressure 118/63 09/13/2024 2:59 PM PROSTHODONTIST/EDUCATOR Pulse 66 09/13/2024 2:59 PM PROSTHODONTIST/EDUCATOR Temperature 36.3 C (97.3 F) 09/13/2024 2:59 PM PROSTHODONTIST/EDUCATOR Respiratory Rate 22 09/13/2024 2:59 PM PROSTHODONTIST/EDUCATOR Oxygen Saturation 99% 09/13/2024 2:59 PM PROSTHODONTIST/EDUCATOR Inhaled Oxygen Concentration - - Weight 88.5 kg (195 lb) 09/13/2024 2:59 PM PROSTHODONTIST/EDUCATOR Height 167.6 cm (5' 6) 05/31/2024 3:07 PM CDT Body Mass Index 31.47 05/31/2024 3:07 PM CDT Plan of Treatment Health Maintenance Due Date Last Done Comments Diabetes: Foot Exam 1969 Hepatitis C Virus (HCV) Screening 1969 Mammogram 1969 TdaP Immunization 1969 Hepatitis B Immunization (1 of 3 - 19+ 3-dose series) 01/09/1988 Pneumococcal Immunization (50+ years) (1 of 2 - PCV) 01/09/1988 Pap Smear 1990 Cervical Cancer Screening (CCS) 1999 HPV/Cotest 1999 Cologuard 2019 Immunochemical Fecal Occult Blood 2019 Zoster Immunization (1 of 2) 2019 Influenza Immunization (#1) 2024 SARS-COV-2 Immunization ( season) 2024 11/28/2020, 11/07/2020 Diabetes: Nephropathy Screening 08/06/2024 08/06/2023, 06/25/2022 Diabetes: Hemoglobin A1c 03/13/2025 025, 05/31/2024, 12/27/2023, Additional history exists Diabetes: Eye Exam 08/27/2025 08/27/2024, 1 10/28/2023, 09/27/2023, Additional history exists Colonoscopy 11/26/2026 11/26/2016 Colorectal Cancer Screening 11/26/2026 Respiratory Syncytial Virus (RSV) Immunization (Adult) (1 - 1-dose 75+ series) 01/09/2044 11/26/2016 Meningococcal Immunization (ACWY) Aged Out No longer eligible based on patient's age to complete this topic Rotavirus Immunization Aged Out No lo nger eligible based on patient's age to complete this topic Procedures Procedure Name Priority Date/Time Associated Diagnosis Comments POCT GLYCOSYLATED HEMOGLOBIN Routine 09/13/2024 3:06 PM PROSTHODONTIST/EDUCATOR Type 1 diabetes mellitus with diabetic polyneuropathy (HCC) DILATED EYE EXAM 08/27/2024 1 2:00 AM PROSTHODONTIST/EDUCATOR CMP (COMPREHENSIVE METABOLIC PANEL) STAT 08/06/2023 10:12 AM PROSTHODONTIST/EDUCATOR from Last 3 Months or Most Recently Relevant to Health Maintenance Results * (ABNORMAL) POCT GLYCOSYLATED HEMOGLOBIN (09/13/2024 3:06 PM PROSTHODONTIST/EDUCATOR) HGB-A1C 7.6(A) 4 - 6 % Blood 09/13/2024 3:06 PM PROSTHODONTIST/EDUCATOR Glory Sanabria MD POINT OF CARE TESTING (MANUAL) F inal Result * DILATED EYE EXAM (08/27/2024 12:00 AM PROSTHODONTIST/EDUCATOR) 08/27/2024 us Provider Scan PROCEDURE/MINOR SURGICAL ORDERAB LES Final Result SCAN * (ABNORMAL) CMP (08/06/2023 10:12 AM PROSTHODONTIST/EDUCATOR) SODIUM 139 136 - 145 mmol/L 08/06/2023 10:46 AM PROSTHODONTIST/EDUCATOR [facility] POTASSIUM 3.8 3.5 - 5.1 mmol/L 08/06/2023 10:46 AM PROSTHODONTIST/EDUCATOR [facility] CHLORIDE 106 98 - 107 mmol/L 08/06/2023 10:46 AM [facility] CO2, VENOUS 25 22 - 30 mmol/L 08/06/2023 10:46 AM [facility] ANION GAP 11.8 <18.0 mmol/L 08/06/2023 10:46 AM [facility] GLUCOSE 173(H) 70 - 99 mg/dL 08/06/2023 10:46 AM [facility] BUN 7(L) 10 - 20 mg/dL 08/06/2023 10:46 AM [facility] CREATININE, BLOOD 0.72 0.60 - 1.00 mg/dL 08/06/2023 10:46 AM [facility] BUN/CREATININE RATIO 10(L) 12 - 20 ratio 08/06/2023 10:46 AM [facility] TOTAL PROTEIN 6.6 6.3 - 8.2 g/dL 08/06/2023 10:46 AM [facility] ALBUMIN 4.0 3.5 - 5.0 g/dL 08/06/2023 10:46 AM [facility] A/G RATIO 1.5 1.0 - 2.2 08/06/2023 10:46 AM [facility] CALCIUM 9.1 8.7 - 10.5 mg/dL 08/06/2023 10:46 AM [facility] T BILI 0.6 0.2 - 1.2 mg/dL 08/06/2023 10:46 AM [facility] SGOT (AST) 19 5 - 34 U/L 08/06/2023 10:46 AM [facility] SGPT (ALT) 16 0 - 55 U/L 08/06/2023 10:46 AM [facility] ALKALINE PHOSPHATASE 67 40 - 150 U/L 08/06/2023 10:46 AM [facility] GFR, ESTIMATED >60 >=60 08/06/2023 10:46 AM [facility] Comment: Creatinine Clearance is the preferred criteria for selecting drug dose adjustments in renally impaired patients. The GFR is provided as additional pertinent clinical information. GFR is reported in mL/min/1.73 sq m. Calculation based on the Chronic Kidney Disease Epidemiology Collaboration (CKD- EPI) equation refit without adjustment for race. GFR, EST. >60 >=60 023 10:46 AM PROSTHODONTIST/EDUCATOR [facility] GFR, EST. NONAFRICAN >60 >=60 08/06/2023 10:46 AM PROSTHODONTIST/EDUCATOR [facility] Blood Venipuncture / Unknown 08/06/2023 10:12 AM PROSTHODONTIST/EDUCATOR 08/06/2023 10:24 AM PROSTHODONTIST/EDUCATOR us Santos Madrigal MD CHEMISTRY ORDERABLES F inal Result [facility] [address] [place] [address] from Last 3 Months or Most Recently Relevant to Health Maintenance Insurance [facility] [email or web address]] Care Teams Gis Instructor Relationship Specialty Start Date End Date Mason Mijares DO [facility] [place] [address] PCP - General Internal Medicine 06/25/22 Glory Sanabria MD [address] [id number] Consulting Physician Endocrinology 12/19/23
--- OUTSIDE RECORDS SUMMARY | 2025-02-04 21:32 | XMS_ITS | Data Portability ---
Author Organization [facility], Main Office Address [address] [facility] [address] [place] [address] Assessment No assessment recorded. Plan of Treatment Reminders Order Date Submit Date Provider Last Modified By Organization Details Last Modified Time Details Appointments None record ed. Lab None record ed. Referral None record ed. Procedures biopsy , skin (PROC) 024 02/28/20 24 [email or web address] Not available 4 10:31:11 Surgeries None record ed. Imaging None record ed. Medication Orders None record ed. Patient TargetsNo targets recorded. Patient Instructions Encounter Date Encounter Id Patient Instructions Last Modified By Organization Details Last Modified Time 02/28/2024 [id number] Informed consent . betadine prep. 1% lidocaine with epinephrine. Shave biopsy from: left eg posterolateral AlCL3 hemostasis. Aquaphor, bandage and wound care given. Will call pt with path. [email or web address] Not available 02/28/2024 10:31:53 Reason for Referral None Reported. 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 Medical Equipment None Reported. Allergies No known drug allergies Medications Name Sig Start Date Stop Date Status Note LastModified by Organization Details LastModified Time cetirizine 5 mg-pseudoeph edrine ER 120 mg tablet,exten ded release,12hr TAKE 1 TABLET BY MOUTH TWICE DAILY FOR 7 DAYS active Not Available Not Available No t Available doxycycline hyclate 100 mg capsule active Not Available Not Available N ot Available valacyclovir 1 gram tablet TAKE 1 TABLET BY MOUTH EVERY DAY active Not Available Not Available No t Available hydrocodone 5 mg-acetamino phen 325 mg tablet TK 1 T PO Q 4 TO 6 H PRN P active Not Available Not Available No t Available ondansetron HCl 4 mg tablet active Not Available Not Available Not Available prednisone 20 mg tablet active Not Available Not Available Not Available Advair Diskus 100 mcg-50 mcg/dose powder for inhalation INL 1 PUFF PO BID active Not Available Not Available No t Available tretinoin 0.05 % topical cream APPLY TO THE AFFECTED AREA(S) BY TOPICAL ROUTE ONCE DAILY AT BEDTIME active Not Available Not Available No t Available sulfamethoxa zole 800 mg-trimethop rim 160 mg tablet TAKE 1 TABLET BY MOUTH EVERY 12 HOURS FOR 5 DAYS active Not Available Not Available N ot Available omeprazole 40 mg capsule,sivakumar yed release TAKE 1 CAPSULE BY MOUTH DAILY active Not Available Not Available Not Available tramadol 50 mg tablet TK 1-2 TS PO Q 4-6 H PRN P active Not Available Not Available No t Available ketorolac 0.5 % eye drops active Not Available Not Available Not Available prednisolone acetate 1 % eye drops,suspen gabriela active Not Available Not Available Not Available benzonatate 100 mg capsule TAKE ONE CAPSULE BY MOUTH THREE TIMES DAILY NEEDED FOR COUGH active Not Available Not Available No t Available cephalexin 500 mg capsule TK ONE C PO TID FOR 3 DAYS active Not Available Not Available No t Available promethazine 25 mg tablet TK 1 TO 2 TS PO Q 4 HOURS active Not Available Not Available No t Available Advair Diskus 250 mcg-50 mcg/dose powder for inhalation active Not Available Not Available N ot Available montelukast 10 mg tablet TAKE 1 TABLET BY MOUTH DAILY active Not Available Not Available Not Available acetaminophe n 300 mg-codeine 60 mg tablet active Not Available Not Available Not Available Novolog U-100 Insulin aspart 100 unit/mL subcutaneous solution INJECT UP TO 70 UNITS UNDER THE SKIN DAILY VIA PUMP active Not Available Not Available No t Available epinephrine 0.3 mg/0.3 mL injection, auto-injecto r active Not Available Not Available Not Available albuterol sulfate HFA 90 mcg/actuatio n aerosol inhaler INHALE 1 PUFF DIRECTED FOR SOB OR WHEEZING active Not Available Not Available No t Available norethindron e (contracepti ve) 0.35 mg tablet TAKE 1 TABLET BY MOUTH EVERY DAY active Not Available Not Available No t Available ondansetron 4 mg disintegrati ng tablet active Not Available Not Available No t Available mometasone 0.1 % topical cream APPLY A THIN LAYER TO THE elbow BY TOPICAL ROUTE ONCE DAILY active Not Available Not Available No t Available ezetimibe 10 mg tablet active Not Available Not Available No t Available Novolog FlexPen U-100 Insulin aspart 100 unit/mL (3 mL) subcutaneous INJECT 1 TO 5 UNITS SC WITH MEALS 4 TO 5 TIMES DAILY active Not Available Not Available Not Available Restasis 0.05 % eye drops in a dropperette active Not Available Not Available Not Available moxifloxacin 0.5 % eye drops active Not Available Not Available Not Available rosuvastatin 5 mg tablet TAKE 1 TABLET BY MOUTH DAILY active Not Available Not Available Not Available Flonase active Not Available Not Avail able Not Available omeprazole active Not Available Not Av ailable Not Available Claritin active Not Available Not Avai lable Not Available Singulair active Not Available Not Tomeka ilable Not Available olopatadine 0.2 % eye drops INSTILL 1 DROP IN BOTH EYES AT BEDTIME active Not Available Not Available N ot Available Spiriva Respimat 1.25 mcg/actuatio n solution for inhalation INL 2 PFS PO D active Not Available Not Available No t Available Tresiba FlexTouch U-100 insulin 100 unit/mL (3 mL) subcutaneous pen INJECT 22 UNITS UNDER THE SKIN EVERY MORNING active Not Available Not Available No t Available Tresiba FlexTouch U-100 active Not Available Not Available Not Available Fiasp FlexTouch U-100 Insulin 100 unit/mL (3 mL) subcutaneous pen ADMINISTER UP TO 6 UNITS UNDER THE SKIN THREE TIMES DAILY WITH MEALS active Not Available Not Available No t Available Dexcom G6 Sensor device REPLACE EVERY 10 DAYS active Not Available Not Available No t Available Dexcom G6 Transmitter device CHANGE EVERY 90 DAYS active Not Available Not Available No t Available Gvoke PFS 1-Pack 1 mg/0.2 mL subcutaneous syringe active Not Available Not Available Not Available Omnipod 5 G6 Pods (Gen 5) subcutaneous cartridge USE DIRECTED AND CHANGE POD EVERY 3 DAYS active Not Available Not Available No t Available Ozempic 0.25 mg or 0.5 mg (2 mg/3 mL) subcutaneous pen injector active Not Available Not Available Not Available Vitals None Recorded Social History None recorded. Functional Status None recorded. Mental Status None recorded. Family History Nothing Reported. Medical History No medical history recorded. Gynecological HistoryNo gynecological history recorded. Obstetrics History GPAL:G 0 P 0 0 0 0 Past Encounters Encounter ID Performer Location Encounter Start Date Encounter Closed Date Diagnosis/Indication Diagnosis SNOMED-CT Code Diagnosis ICD10 Code Diagnosis Note [id number] Aris Dunn MD Main Office [address] [place] [address] [place] [phone] 02/28/2024 09:27:42 02/28/2024 10:32:20 Neoplasm of uncertain behavior of skin 91160704 D48.5 Health Concerns Section Related Observation LastModified by Organization Detai ls LastModified Time None Recorded Concern Status LastModified by Organization Details LastModified Time None Recorded Advance Directives Directive None Recorded Payers Encounter Date Sequence Insurance Name Policy Number Policy Weaver Covered Member ID Weaver Member ID Guarantor Name 02/28/2024 1 [employer] (POS II) [id number] Lyudmila Field [id number] Lyudmila Field Notes Date Note Type Note Provider Name and Address Organization Details Recorded Time 02/28/2024 text/html Bx of papule of the l leg posterior lateralr/o dermatofibroma, nevus BCC Aris Dunn MD [address], [place], [address], [facility] 02/28/2024 10:32:09 OBGyn Episode No OBEpisode recorded.
--- OUTSIDE RECORDS SUMMARY | 2025-02-04 21:32 | XMS_ITS | Referral Summary ---
Author Organization [facility] [address] Address [address] [place] [address] Care Team Providers Care Education Specialist Name Role Phone Mason Mijares DO Primary Care Provider [phone] Elvin Mcduffie MD Unavailable [phone] Allergies Active Allergy Reactions Criticality Noted Date Comments Latex Rash Medium 11/09/2016 Mushroom Anaphylaxis,Vomiting High 03/02/2020 Silicone Rash Medium 11/09/2016 Tuxsetc-Cmv-Twc Reductase Inhibitors Other (See comments) High 09/02/2022 Body aches Venom-Honey Bee Anaphylaxis,Shortnes s of breath,Itching,Swelling, Anxiety,Rash High 02/10/1974 Medications EPINEPHrine 0.3 mg/0.3 mL auto-injection syringe Inject 0.3 mL (0.3 mg total) under the skin as needed PRN 05/05/20 20 Active albuterol HFA (PROVENTIL HFA,VENTOLIN HFA,PROAIR HFA) 90 mcg/actuation inhaler Inhale 2 puffs every 6 (six) hours as needed for wheezing PRN Active montelukast (SINGULAIR) 10 mg tablet Take 1 tablet (10 mg total) by mouth daily Active omeprazole (PriLOSEC) 40 mg capsule Take 1 capsule (40 mg total) by mouth daily Active cholecalciferol (VITAMIN D-3) 25 mcg (1,000 unit) tablet Take 1 tablet (1,000 Units total) by mouth daily Active psyllium, aspartame, SF (METAMUCIL SF) 3.4 gram packet Take 1 packet by mouth daily Active cyanocobalamin (Vitamin B-12) 1,000 mcg tabletIndications: Prevention of Vitamin B12 Deficiency Take 1 tablet (1,000 mcg total) by mouth daily Active ondansetron (ZOFRAN) 4 mg tablet Take 1 tablet (4 mg total) by mouth every 8 (eight) hours as needed for nausea or vomiting 15 tablet 12/10/19 21 Active Additional Information Patient not taking.Reported on 10/24/2023 olopatadine (PATADAY) 0.2 % ophthalmic solution 03/09/20 21 Active ondansetron ODT (ZOFRAN-ODT) 4 mg disintegrating tablet PRN 09/07/19 22 Active TRESIBA 100 unit/mL (3 mL) pen for injection Inject 0.22 mL (22 Units total) under the skin daily Took 17 units 12/09/20 15 mL 6 11/11/19 22 Active pen needle, diabetic (Pen Needle) 32 gauge x 32 needle Use to take insulin 4 x day 200 each 11 11/11/19 22 Active Xiidra 5 % dropperette 03/04/20 22 Active insulin aspart (NovoLOG) 100 unit/mL vial for injection Inject up to 70 units/day via insulin pump 70 mL 3 04/14/20 22 Active benzonatate (TESSALON) 100 mg capsule PRN 07/28/20 22 Active Restasis 0.05 % ophthalmic emulsion 07/05/20 22 Active prednisoLONE acetate (PRED FORTE) 1 % ophthalmic suspension 10/26/19 23 Active ketorolac (ACULAR) 0.5 % ophthalmic solution 10/26/19 23 Active ezetimibe (ZETIA) 10 mg tabletIndications: Mixed hyperlipidemia Take 1 tablet (10 mg total) by mouth daily 90 tablet 1 11/20/19 23 Active Additional Information Patient not taking.Reported on 10/24/2023 mometasone (ELOCON) 0.1 % cream 05/11/20 23 Active tretinoin (RETIN-A) 0.05 % cream 05/11/20 23 Active fluticasone propion-salmeteroL (Advair Diskus) 250-50 mcg/dose diskus inhaler Inhale 1 puff 2 (two) times a day Rinse mouth with water after use to reduce aftertaste and incidence of candidiasis. Do not swallow. 1 each 3 06/13/20 23 Active Additional Information Patient not taking.Reported on 10/24/2023 insulin pump cart,automated,BT (Omnipod 5 G6 Pods, Gen 5,) cartridge CHANGE POD EVERY 3 DAYS 30 each 1 08/16/20 23 Active Dexcom G6 Sensor device CHANGE SENSOR EVERY 10 DAYS. 9 each 1 10/18/19 24 Active Dexcom G6 Transmitter deviceIndications: Type 1 diabetes mellitus with hyperlipidemia (HCC) CHANGE TRANSMITTER EVERY 90 DAYS. 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 Improving with lifestyle change. Type 1 diabetes mellitus with hyperlipidemia Assessment & Plan (03/18/2022 4:00 PM CDT): Start Crestor Varicose veins of left lower extremity with pain 04/19/2021 Diabetes mellitus 01/09/2013 Overview (12/10/2016): Diabetes mellitus Assessment & Plan (03/18/2022 3:59 PM CDT): Hba1c was Lab Results Component Value Date HGBA1C 7.9 03/18/2022 today, indicating inadequate DM control Goal Hba1c and blood glucose explained Diet and exercise were advised Prevention and treatment of hyypoglcyemia were discussed with the patient Blood glucose monitoring : Continue Dexcom Adjustment to medications: I advised the patient to split the Tresiba to take 12 units every 12 hours Also to take 2 units of NovoLog bedtime for glucoses over 160 Will start process for OmniPod 5 insulin pump Assessment & Plan (11/10/2021 10:07 AM FILM MOUNTER): Hba1c was Lab Results Component Value Date HGBA1C 7.2 11/10/2021 today, indicating suboptimal DM control Goal blood glucose levels : 90-130 Target Hba1c : 6.5 - 7 % BG monitoring : DEXCOM Prevention and treatment of hyypoglcyemia discussed. Insulin regimen adjustments: Tresiba, 22 units hs Humalog, ac, IC 15 ISF 50 > 150 Will consider to start insulin pump, patient interested in the OmniPod 5 system when available Overweight 01/09/2013 Overview (12/10/2016): Overweight Asthma 01/09/2013 Overview (12/10/2016): Asthma Type 1 diabetes mellitus 03/18/2011 Assessment & Plan (09/02/2022 4:12 PM FILM MOUNTER): Chronic problem, improving. Lower CR per below for pC highs. She is very frustrated with staff/ communication at our office and will be transitioning to another office in November. I filled her prescriptions and she'll let us know if she needs anything else before then. Bronchial asthma 12/09/2010 Resolved Problems Problem Noted Date Diagnosed Date Resolved Date Lipoma of skin of abdomen 11/17/2020 Overview (11/17/2020): Added automatically from request for surgery [id number] Umbilical hernia without obs truction and without gangrene 07/14/2020 12/25/2020 Social History Tobacco Use Types Packs/Day Years Used Date Smoking Tobacco: Never Smokeless Tobacco: Never Tobacco Cessation:Counseling Given: Not Answered Alcohol Use Standard Drinks/Week Comments Yes 1 (1 standard drink = 0.6 oz pur e alcohol) AUDIT-C Answer Date Recorded Q1: How often do you have a drink containing alc ohol? 2-4 times a month 12/02/2020 Q2: How many drinks containi ng alcohol do you have on a typical day when you are drinking? 1 or 2 12/02/2020 Q3: How often do you have si x or more drinks on one occasion? 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 file Not on file Not on file Last Filed Vital Signs Vital Sign Reading Time Taken Comments Blood Pressure 103/70 10/24/2023 10:07 AM FILM MOUNTER Pulse 81 10/24/2023 10:07 AM FILM MOUNTER Temperature 36.4 C (97.6 F) 10/24/2023 10:07 AM FILM MOUNTER Respiratory Rate 18 08/19/2023 9:05 PM FILM MOUNTER Oxygen Saturation 98% 10/24/2023 10:07 AM FILM MOUNTER Inhaled Oxygen Concentration - - Weight 87.4 kg (192 lb 9.6 oz) 10/24/2023 10:07 AM FILM MOUNTER Height 167.6 cm (5' 6) 10/24/2023 10:07 AM FILM MOUNTER Body Mass Index 31.09 10/24/2023 10:07 AM FILM MOUNTER Plan of Treatment Not on file Medical Devices Implanted Type Area Jewelry Jobber Device Identifier Shelf Expiration Date Model / Serial / Lot [employer] Inc/C R Bard [id number] Ventralex St Sepra Sorbaflex 2.5in [place] [employer] Bioresorbable - Snone - [id number] Implanted:Qty: 1 on 12/09/2020 by Elvin Mcduffie MD at [facility] Mesh Right: Abdomen [employer]/C R Bard 05/02/2022 [id number] / NONE / [id number] Procedures Procedure Name Priority Date/Time Associated Diagnosis Comments HM DIABETES EYE EXAM Routine 08/23/2023 8:14 AM FILM MOUNTER EGFR STAT 08/19/2023 7:02 PM FILM MOUNTER POCT HEMOGLOBIN A1C Routine 09/02/2022 3 :21 PM FILM MOUNTER Type 1 diabetes mellitus with hyperglycemia (HCC) LIPID PANEL Routine 07/14/2022 12:20 PM FILM MOUNTER Type 1 diabetes mellitus with hyperglycemia (HCC) ALBUMIN CREATININE RATIO, URINE Routine 03/16/2022 8:13 AM CDT Type 1 diabetes mellitus with hyperglycemia (HCC) TSH Routine 03/16/2022 8:13 AM CDT Type 1 diabetes mellitus with hyperglycemia (HCC) from Last 3 Months or Most Recently Relevant to Health Maintenance Results * DIABETES EYE EXAM (08/23/2023 8:14 AM FILM MOUNTER) Historical Provider HEALTH MAINTENANCE Final Result * eGFR (08/19/2023 7:02 PM FILM MOUNTER) eGFR >90 >=60 mL/min/1. 73 m2 [facility] Comment: Interpretive Data Reference Interval Normal >/= 90 mL/min/1.73m2 Mildly decreased* 60 - 89 mL/min/1.73m2 Mildly to moderately decreased 45 - 59 mL/min/1.73m2 Moderately to severely decreased 30 - 44 mL/min/1.73m2 Severely decreased 15 - 29 mL/min/1.73m2 Kidney Failure < 15 mL/min/1.73m2 *Relative to young adult level Estimated glomerular filtration rate is determined by the 2020 CKD-EPI equation recommended by the National Kidney Foundation (A Unifying Approach to GFR Estimation: Recommendations of the NKF-ASK Task Force on Reassessing the Inclusion of Race in Diagnosing Kidney Disease, JASN 2020). The CKD-EPI equation should not be used for patients with unstable renal function and has not been validated in children and those over 70. Current interpretive data was last reviewed 2021. Blood 08/19/2023 7:02 PM FILM MOUNTER 08/19/2023 7:19 PM FILM MOUNTER Chano Cason MD LAB BLOOD ORDERABLES Nu l Result [facility] Department [place] [address] * (ABNORMAL) POCT hemoglobin A1c (09/02/2022 3:21 PM FILM MOUNTER) Hemoglobin A1C, POC 7.2 Blood 09/02/2022 3:21 PM FILM MOUNTER Missy PARSON POINT OF CARE TEST MILDRED KRUSE Final Result * Lipid panel (07/14/2022 12:20 PM FILM MOUNTER) Cholesterol 189 30 - 199 mg/dL [facility] Comment: Interpretive Data Ages < or = 19 years Acceptable: <170 mg/dL Borderline high: 170-199 mg/dL High: >or= 200 mg/dL Ages > or = 20 years Desirable: <200 mg/dL Borderline high: 200-239 mg/dL High: >or= 240 mg/dL Literature References: 1. Expert Panel on Integrated Guidelines for Cardiovascular Health and Risk Reduction in Children and Adolescents. Pediatrics 2011;128:S213 2. NCEP Expert Panel. Circulation 2004;110:227 Current Interpretive Data was last revised on 2018. Triglycerides 65 <=149 mg/dL [facility] Comment: Interpretive Data Ages < or = 9 years Acceptable: <75 mg/dL Borderline high: 75-99 mg/dL High: >or= 100 mg/dL Ages 10 to 20 years Acceptable: <90 mg/dL Borderline high: 90-129 mg/dL High: >or= 130 mg/dL Ages > or = 20 years Desirable: <150 mg/dL Borderline high: 150-199 mg/dL High: 200-499 mg/dL Very high: >or= 499 mg/dL Literature References: 1. Expert Panel on Integrated Guidelines for Cardiovascular Health and Risk Reduction in Children and Adolescents. Pediatrics 2011;128:S213 2. NCEP Expert Panel. Circulation 2004;110:227 Current Interpretive Data was last revised on 2018. HDL 59 >=40 mg/dL [facility] Comment: Interpretive Data Ages < or = 19 years Acceptable: >45 mg/dL Borderline low: 40-45 mg/dL Low: <40 mg/dL Ages > or = 20 years Desirable: >or= 60 mg/dL Low: <40 mg/dL Literature References: 1. Expert Panel on Integrated Guidelines for Cardiovascular Health and Risk Reduction in Children and Adolescents. Pediatrics 2011;128:S213 2. NCEP Expert Panel. Circulation 2004;110:227 Current Interpretive Data was last revised on 2018. LDL, calculated 117 <=129 mg/dL [facility] Comment: Interpretive Data Ages < or = 19 years Acceptable: <110 mg/dL Borderline high: 110-129 mg/dL High: >or= 130 mg/dL Ages > or = 20 years Optimal: <100 mg/dL Near optimal: 100-129 mg/dL Borderline high: 130-159 mg/dL High: >160 mg/dL Literature References: 1. Expert Panel on Integrated Guidelines for Cardiovascular Health and Risk Reduction in Children and Adolescents. Pediatrics 2011;128:S213 2. NCEP Expert Panel. Circulation 2004;110:227 Current Interpretive Data was last revised on 2018. Non-HDL Cholesterol 130 mg/dL [facility] Comment: Interpretive Data Ages < or = 19 years Acceptable: <120 mg/dL Borderline high: 120-144 mg/dL High: >145 mg/dL Ages > or = 20 years When triglycerides are >200 mg/dL, Non-HDL cholesterol is a secondary target of therapy with treatment goals that are 30 mg/dL greater than the LDL cholesterol target. Literature References: 1. Expert Panel on Integrated Guidelines for Cardiovascular Health and Risk Reduction in Children and Adolescents. Pediatrics 2011;128:S213 2. NCEP Expert Panel. Circulation 2004;110:227 Current Interpretive Data was last revised on 2018. Chol/HDL ratio 3 [facility] Blood 07/14/2022 12:2 0 PM FILM MOUNTER 07/14/2022 6:59 PM FILM MOUNTER Narrative [facility] - 07/14/2022 7:54 PM FILM MOUNTER These lab test should be done fasting. This means do not eat or drink for at least 12 hours prior to getting your blood drawn. us Joss Tadeo MD LAB BLOOD ORDERABLES Final Resul t [facility] [address] Department [place] [address] * Albumin Creatinine Ratio, Urine (03/16/2022 8:13 AM CDT) Albumin Ur 22.8 mg/L [facility] Comment: Interpretive Data No reference range established. Current interpretive data was last revised 2019. Creatinine Ur 280.1 mg/dL [facility] Comment: Interpretive Data No reference range established. Current interpretive data was last revised 2019. Albumin Creatinine Ratio, Ur 8 1 - 29 mg/g [facility] Urine 03/16/2022 8:13 AM CDT 03/16/2022 2:38 PM CDT us Joss Tadeo MD LAB URINE ORDERABLES Final Resul t Performing Organization Address [facility] Co de Phone Number [facility] [id number] [address] Department [place] [address] * TSH (03/16/2022 8:13 AM CDT) Thyroid Stimulating Hormone 2.77 0.30 - 4.20 mcIUnit/mL [facility] Blood 03/16/2022 8:13 AM CDT 03/16/2022 2:38 PM CDT us Joss Tadeo MD LAB BLOOD ORDERABLES Final Resul t Performing Organization Address [facility] Co de Phone Number [facility] [phone] [address] Department [place] [place] [address] from Last 3 Months or Most Recently Relevant to Health Maintenance Insurance [facility] [place] HMO [facility]O Address: [facility] [id number] [place] [id number] Advance Directives For more information, please contact: [phone] Documents on File Type Date Recorded Patient Panelboard Tank Pumper Expl anation ADVANCE DIRECTIVE 12/13/2020 11:04 PM ADVANCE DIRECTIVE 12/09/2020 9:09 AM Care Teams Education Specialist Relationship Specialty Start Date End Date Mason Mijares DO PCP - General 10/21/14 Elvin Mcduffie MD Consulting Physician General Surgery 12/09/20
--- OUTSIDE RECORDS SUMMARY | 2025-02-04 21:32 | XMS_ITS | Clinical Summary ---
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 Improving with lifestyle [...] pump Assessment & Plan (11/10/2021 10:07 AM SLEEVER): Hba1c was Lab Results Component Value Date [...] 03/18/2011 Assessment & Plan (09/02/2022 4:12 PM SLEEVER): Chronic problem, improving. Lower CR per below [...] (11/17/2020): Added automatically from request for surgery [id number] Umbilical hernia without obs truction and without gangrene 07/14/2020 12/25/2020 Surgical History Surgery Date Site/Laterality Comments TONSILLECTOMY 09/05/1983 - 09/04/1984 Tonsillectomy KNEE ARTHROSCOPY Arthroscopy knee TONSILLECTOMY Tonsillectomy KNEE ARTHROSCOPY Arthroscopy knee TONSILLECTOMY Tonsillectomy CYSTOSCOPY W/ STONE MANIPULATION 09/05/2018 - 09/04/2019 LIPOSUCTION TRUNK 07/05/2020 UMBILICAL HERNIA REPAIR 12/09/[address] patch, sublay. Also resection of abdominal lipoma from right lower quadrant CATARACT EXTRACTION Bilateral UPPER GASTROINTESTINAL ENDOSCOPY CLAVICLE SURGERY Medical History Medical History Date Comments Diabetes mellitus (HCC) Diabetes History of multiple allergies Al lergies Asthma Asthma Diabetes mellitus (HCC) Diabetes mellitus; Comments: APO 06/14/2014 - Asthma Asthma; Comments : APO 06/14/2014 - Type 1 diabetes mellitus (HCC) D iabetes type 1; Comments: APO 06/14/2014 - Hx Other Medical bone replacemen t rt foot; Comments: APO 06/14/2014 - Diabetes mellitus (HCC) Diabetes mellitus; Comments: APO 06/14/2014 - Asthma Asthma; Comments : APO 06/14/2014 - Type 1 diabetes mellitus (HCC) D iabetes type 1; Comments: APO 06/14/2014 - Hx Other Medical bone replacemen t rt foot; Comments: APO 06/14/2014 - Vaginal delivery Family History Medical History Relation Name Comments COPD Father COPD; Cholelithiasis Father Heart attack Maternal Grandfather Hernia Mother Thyroid disease Mother Thyroid dise ase; Brain cancer Mother's Sister Other Other 1 Family H/O Anesthesia reac tion; Arthritis Other 2 Family history of Arthritis; Other Other 3 Family history of Blood clots, legs; Arthritis Other 4 Family history of Arthritis; Other Other 5 Family history of Blood clots, legs; Stroke Paternal Grandmother Relation Name Status Comments Father Alive Maternal Grandfather Mother Alive Mother's Sister Other 1 Family H/O Alive Other 2 Other 3 Other 4 Other 5 Paternal Grandmother Social History Tobacco Use Types Packs/Day Years [...] on file Legal Sex Female 1:39 AM SLEEVER Gender Identity Not on file Sexual Orientation Straight 03/03/2020 4: 20 PM CDT 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 Not on file Not on file Not on file Obstetrics History Last Filed Vital Signs Vital Sign Reading Time Taken Comments Blood Pressure 103/70 10/24/2023 10:07 AM SLEEVER Pulse 81 10/24/2023 10:07 AM SLEEVER Temperature 36.4 C (97.6 F) 10/24/2023 10:07 AM SLEEVER Respiratory Rate 18 08/19/2023 9:05 PM SLEEVER Oxygen Saturation 98% 10/24/2023 10:07 AM SLEEVER Inhaled Oxygen Concentration - - Weight 87.4 kg (192 lb 9.6 oz) 10/24/2023 10:07 AM SLEEVER Height 167.6 cm (5' 6) 10/24/2023 10:07 AM SLEEVER Body Mass Index 31.09 10/24/2023 10:07 AM SLEEVER Plan of Treatment Health Maintenance Due Date Last Done Comments Breast Cancer Screening-Mammogram 1969 Cervical Cancer Screening 1969 Colon Cancer Screening-Colonoscopy 1969 Hepatitis C Screening 1969 DTaP/Tdap/Td Vaccine (1 - Tdap) 01/09/1980 Hepatitis B Screening 1987 Regular Well Visit/Exam 18-64 1987 Pneumococcal vaccine <65 (1 of 2 - PCV) 01/09/1988 Zoster Vaccine (1 of 2) 2019 Depression Screening 11/10/2022 11/10/2021 Foot Exam 11/10/2022 11/10/2021 Hemoglobin A1C 03/03/2023 09/02/2022, 1105/2022, 03/18/2022, Additional history exists Albumin Creatinine Ratio, Urine 03/16/2023 TSH Level 03/16/2023 03/16/2022 Lipid Panel 07/14/2023 07/14/2022, 0710/2021, 08/23/2013, Additional history exists eGFR 08/19/2024 08/19/2023, 110 05/2022, 03/18/2022, Additional history exists Dilated Eye Exam 08/23/2024 08/23/2023, , 11/10/2021 Influenza Vaccine (Season Ended) 2025 Medical Devices Implanted Type Area Caretaker Device Identifier Shelf Expiration Date Model / Serial / Lot [employer]ol Inc/C R Bard [id number] Ventralex St Sepra Sorbaflex 2.5in [facility] Bioresorbable - Snone - [id number] Implanted:Qty: 1 on 12/09/2020 by Elvin Mcduffie MD at [facility] Mesh Right: Abdomen [employer] Inc/C R Bard 05/02/2022 [id number] / NONE / [id number] Procedures Procedure Name Priority Date/Time Associated Diagnosis Comments DIABETES EYE EXAM Routine 08/23/2023 8:14 AM SLEEVER EGFR STAT 08/19/2023 7:02 PM SLEEVER POCT HEMOGLOBIN A1C Routine 09/02/2022 3 :21 PM SLEEVER Type 1 diabetes mellitus with hyperglycemia (HCC) LIPID PANEL Routine 07/14/2022 12:20 PM SLEEVER Type 1 diabetes mellitus with hyperglycemia (HCC) ALBUMIN CREATININE RATIO, URINE Routine 03/16/2022 8:13 AM CDT Type 1 diabetes mellitus with hyperglycemia (HCC) TSH Routine 03/16/2022 8:13 AM CDT Type 1 diabetes mellitus with hyperglycemia (HCC) from Last 3 Months or Most Recently Relevant to Health Maintenance Results * HM DIABETES EYE EXAM (08/23/2023 8:14 AM SLEEVER) Historical Provider HEALTH MAINTENANCE Final Result * eGFR (08/19/2023 7:02 PM SLEEVER) eGFR >90 >=60 mL/min/1. 73 m2 [facility] Comment: Interpretive Data Reference Interval Normal >/= [...] last reviewed 2021. Blood 08/19/2023 7:02 PM SLEEVER 08/19/2023 7:19 PM SLEEVER Chano Cason MD LAB BLOOD ORDERABLES Nu mora Result [facility] Department [place] [address] * (ABNORMAL) POCT hemoglobin A1c (09/02/2022 3:21 PM SLEEVER) Hemoglobin A1C, POC 7.2 Blood 09/02/2022 3:21 PM SLEEVER us Missy PARSON POINT OF CARE TEST ORDMichelle KRUSE Final Result * Lipid panel (07/14/2022 12:20 PM SLEEVER) Cholesterol 189 30 - 199 mg/dL [facility] [...] on 2018. HDL 59 >=40 mg/dL [facility] Comment: Interpretive Data Ages < or = [...] 2018. LDL, calculated 117 <=129 mg/dL [facility] Comment: Interpretive Data Ages < or = [...] on 2018. Non-HDL Cholesterol 130 mg/dL [facility] Comment: Interpretive Data Ages < or = [...] last revised on 2018. Chol/HDL ratio 3 [facility] Blood 07/14/2022 12:2 0 PM SLEEVER 07/14/2022 6:59 PM SLEEVER Narrative [facility] - 07/14/2022 7:54 PM SLEEVER These lab test should be done fasting. This means do not eat or drink for at least 12 hours prior to getting your blood drawn. us Joss Tadeo MD LAB BLOOD ORDERABLES Final Resul t Performing Organization Address [facility] Co de Phone Number [facility] [phone] [address] [place] [place] [address] * Albumin Creatinine Ratio, Urine (03/16/2022 8:13 AM CDT) Albumin Ur 22.8 mg/L [facility] Comment: Interpretive Data No reference range established. Current interpretive data was last revised 2019. Creatinine Ur 280.1 mg/dL [facility] Comment: Interpretive Data No reference range established. Current interpretive data was last revised 2019. Albumin Creatinine Ratio, Ur 8 1 - 29 mg/g [facility] Urine 03/16/2022 8:13 AM CDT 03/16/2022 2:38 PM CDT us Joss Tadeo MD LAB URINE ORDERABLES Final Resul t Performing Organization Address [facility] de Phone Number [facility] [address] [address] [place] [address] * TSH (03/16/2022 8:13 AM CDT) Thyroid Stimulating Hormone 2.77 0.30 - 4.20 mcIUnit/mL [facility] Blood 03/16/2022 8:13 AM CDT 03/16/2022 2:38 PM CDT us Joss Tadeo MD LAB BLOOD ORDERABLES Final Resul t Performing Organization Address [facility] Co de Phone Number [facility] [address] [address] [place] [address] from Last 3 Months or Most Recently Relevant to Health Maintenance [facility] Advance Directives For more information, please contact: [phone] Documents on File Type Date Recorded Patient Synthetic Chemist Expl anation ADVANCE DIRECTIVE 12/13/2020 11:04 PM ADVANCE DIRECTIVE 12/09/2020 9:09 AM Care Teams Sde Relationship Specialty Start Date End Date Mason Mijares DO PCP - General 10/21/14 Elvin Mcduffie MD Consulting Physician General Surgery 12/09/20
--- NOTE | 2025-02-04 21:48 | ECG_ITS ---
Test Date: 2025-02-04 21:52:26 Measurements Intervals [place] Rate: 78 P: 48 FL: 194 QRS: -16 QRSD: 80 T: 48 QT: 369 QTc: 420 Interpretive Statements SINUS RHYTHM LOW QRS VOLTAGE IN PRECORDIAL LEADS CONSIDER INFERIOR INFARCT, AGE INDETERMINATE ABNORMAL ECG No previous ECG available for comparison Electronically Signed On 02-05-2025 06:13:38 CDT by Domingo Lester D.O.
--- OUTSIDE RECORDS SUMMARY | 2025-02-04 22:54 | XMS_ITS | Encounter Summary ---
Author Organization [facility] Address [address] [facility] [address] Phone Care Team Providers Care Munitions Handler Name Role Phone Mason Mijaresian Primary Care Provider Glory Sanabria MD Unavailable Reason for Visit * Reason Comments Medication Refill Encounter Details Date Type Department Care Team (Late st Contact Info) Description 01/23/2024 Refill [facility] - Endocrinology - [place] [address] [place] [address] Glory Sanabria MD [address] [address] Medication Refill Social History Tobacco [...] on filedocumented in this encounter Care Teams Munitions Handler Relationship Specialty Start Date End Date Mason Mijares DO [address] [facility] [place] [address] PCP - General Internal Medicine 06/25/22 Glory Sanabria MD [address] [id number] Consulting Physician Endocrinology 12/19/23 documented as of this encounter
--- OUTSIDE RECORDS SUMMARY | 2025-02-04 22:54 | XMS_ITS | Continuity of Care Document ---
Author Organization [facility] Address [address] [place] [address] [place] [address] Phone Care Team Providers Care Director Credit Risk Name Role Phone [facility] Unavailable Unavail able Procedures Procedure Date Corneal Topography Advance Directives Directive Yes / No Effective Date File Name No Information Encounters Encounter Description Practice Location Reason(s) For Visit Diagnoses Date Provider Providers Copied on Encounter [facility], [address], [place], [place], [id number], [place] tel:[phone] [facility] No Information [facility] . [address] [place], [place], [id number], [place]. tel:[phone] Referring Provider: Joe Duenas OD F, [address] [facility] [address], [place], [address]. tel:[phone] Family History Family Member Type Diagnosis Age At Onset No Information Payers Payer name Insurance type Covered democrat ID Authoriza tion(s) No Information Social History [...]
--- OUTSIDE RECORDS SUMMARY | 2025-02-04 22:55 | XMS_ITS | Clinical Summary ---
Author Organization [facility] Address [address] [facility] [place] [address] Care Team Providers Care Wheel Lacer And Truer Name Role Phone Mason Mijares DO Primary Care Provider Source Comments [facility],non-owned Affiliates and Associated Physician Practices is amultiple site organization consisting of ambulatory clinics and hospital sitesin [place], [place], [place] and [place]. This disclosure is being madepursuant to the Care Everywhere program and may not contain all information available regarding this patient. Last updated 18.[facility] Allergies Active Allergy Reactions Criticality Noted Date [...] on file Legal Sex Female 3:14 PM MECHANICAL INTERN Gender Identity Female Sexual Orientation Not on file Last Filed Vital Signs Vital Sign Reading Time Taken Comments Blood Pressure 110/70 10/02/2018 11:23 AM MECHANICAL INTERN Pulse 74 10/02/2018 11:23 AM MECHANICAL INTERN Temperature 37.2 C (99 F) 10/02/2018 11:23 AM MECHANICAL INTERN Respiratory Rate 16 10/02/2018 11:23 AM MECHANICAL INTERN Oxygen Saturation 98% 10/02/2018 11:23 AM MECHANICAL INTERN Inhaled Oxygen Concentration - - Weight 88 kg (194 lb) 10/02/2018 11:23 AM MECHANICAL INTERN Height 167.6 cm (5' 6) 10/02/2018 11:23 AM MECHANICAL INTERN Body Mass Index 31.31 10/02/2018 11:23 AM MECHANICAL INTERN Plan of Treatment Health Maintenance Due Date [...] Most Recently Relevant to Health Maintenance Insurance [employer] Member Subscriber Plan / Payer (Ef fective 2023-Present) Name:Natalia Morrissey Carla Relation to Subscriber:Self Name:Natalia Morrissey Payer ID:[id number] (NAIC) Group ID:Not on file Type:O Address: [address] [place] [address] [employer] Care Teams Wheel Lacer And Truer Relationship Specialty Start Date End Date Mason Mijares DO PCP - General Internal Medicine 11/09/16
--- OUTSIDE RECORDS SUMMARY | 2025-02-04 22:55 | XMS_ITS | Clinical Summary ---
Author Organization [facility] Address [address] [place] [address] Phone Care Team Providers Care Aircraft Structural Fitter Name Role Phone PamelatiffanyMason DO Primary Care [...] Insulin Pen Needle (Global Ease Inject Pen [place]) 32G X 4 MM Misc Use to [...] 9 Each 1 5 Active Continuous Glucose Insurance Sales Supervisor (Dexcom G7 Insurance Sales Supervisor) Device CHECK BLOOD GLUCOSE BEFORE EACH MEAL AND AT BEDTIME 1 Each 5 Active insulin lispro (HumaLOG) 100 UNIT/ML Solution PER INSULIN PUMP SETTING, UP TO 50 UNITS PER DAY 50 mL 3 5 Active Insulin Disposable Pump (Omnipod 5 [id number] Pods Gen 5) Misc CHANGE EVERY 3 DAYS 30 Each 9 5 Active Active Problems Problem Noted Date Diagnosed Date 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 02/27/2024 Class 1 obesity due to exces s calories with serious comorbidity and body mass index (BMI) of 31.0 to 31.9 in adult 02/27/2024 Encounters Date Type Department Care Team Description 11/27/2024 Refill [facility] - Endocrinology [facility] [address] [place] [address] Glory Sanabria MD Medication Refill 11/16/2024 Refill [facility] - Endocrinology [facility] [address] [place] [address] Glory Sanabria MD Medication Refill from Last [...] Comments Blood Pressure 118/63 09/13/2024 2:59 PM FILLER OPERATOR Pulse 66 09/13/2024 2:59 PM FILLER OPERATOR Temperature 36.3 C (97.3 F) 09/13/2024 2:59 PM FILLER OPERATOR Respiratory Rate 22 09/13/2024 2:59 PM FILLER OPERATOR Oxygen Saturation 99% 09/13/2024 2:59 PM FILLER OPERATOR Inhaled Oxygen Concentration - - Weight 88.5 kg (195 lb) 09/13/2024 2:59 PM FILLER OPERATOR Height 167.6 cm (5' 6) 05/31/2024 3:07 [...] POCT GLYCOSYLATED HEMOGLOBIN Routine 09/13/2024 3:06 PM FILLER OPERATOR Type 1 diabetes mellitus with diabetic polyneuropathy (HCC) DILATED EYE EXAM 08/27/2024 1 2:00 AM FILLER OPERATOR CMP (COMPREHENSIVE METABOLIC PANEL) STAT 08/06/2023 10:12 AM FILLER OPERATOR from Last 3 Months or Most Recently Relevant to Health Maintenance Results * (ABNORMAL) POCT GLYCOSYLATED HEMOGLOBIN (09/13/2024 3:06 PM FILLER OPERATOR) HGB-A1C 7.6(A) 4 - 6 % Blood 09/13/2024 3:06 PM FILLER OPERATOR Glory Sanabria MD POINT OF CARE TESTING (MANUAL) F inal Result * DILATED EYE EXAM (08/27/2024 12:00 AM FILLER OPERATOR) 08/27/2024 us Provider Scan PROCEDURE/MINOR SURGICAL ORDERAB LES Final Result SCAN * (ABNORMAL) CMP (08/06/2023 10:12 AM FILLER OPERATOR) SODIUM 139 136 - 145 mmol/L 08/06/2023 10:46 AM FILLER OPERATOR [facility] POTASSIUM 3.8 3.5 - 5.1 mmol/L 08/06/2023 10:46 AM FILLER OPERATOR [facility] CHLORIDE 106 98 - 107 mmol/L 08/06/2023 10:46 AM [facility] CO2, VENOUS 25 22 - 30 mmol/L 08/06/2023 10:46 AM [facility] ANION GAP 11.8 <18.0 mmol/L 08/06/2023 10:46 AM [facility] GLUCOSE 173(H) 70 - 99 mg/dL 08/06/2023 10:46 AM [facility] BUN 7(L) 10 - 20 mg/dL 08/06/2023 10:46 AM [facility] CREATININE, BLOOD 0.72 0.60 - 1.00 mg/dL 08/06/2023 10:46 AM [facility] BUN/CREATININE RATIO 10(L) 12 - 20 ratio 08/06/2023 10:46 AM [facility] TOTAL PROTEIN 6.6 6.3 - 8.2 g/dL 08/06/2023 10:46 AM [facility] ALBUMIN 4.0 3.5 - 5.0 g/dL 08/06/2023 10:46 AM [facility] A/G RATIO 1.5 1.0 - 2.2 08/06/2023 10:46 AM [facility] CALCIUM 9.1 8.7 - 10.5 mg/dL 08/06/2023 10:46 AM [facility] T BILI 0.6 0.2 - 1.2 mg/dL 08/06/2023 10:46 AM [facility] SGOT (AST) 19 5 - 34 U/L 08/06/2023 10:46 AM [facility] SGPT (ALT) 16 0 - 55 U/L 08/06/2023 10:46 AM [facility] ALKALINE PHOSPHATASE 67 40 - 150 U/L 08/06/2023 10:46 AM [facility] GFR, ESTIMATED >60 >=60 08/06/2023 10:46 AM [facility] Comment: Creatinine Clearance is the preferred criteria for selecting drug dose adjustments in renally impaired patients. The GFR is provided as additional pertinent clinical information. GFR is reported in mL/min/1.73 sq m. Calculation based on the Chronic Kidney Disease Epidemiology Collaboration (CKD- EPI) equation refit without adjustment for race. GFR, EST. >60 >=60 023 10:46 AM FILLER OPERATOR [facility] GFR, EST. NONAFRICAN >60 >=60 08/06/2023 10:46 AM FILLER OPERATOR [facility] Blood Venipuncture / Unknown 08/06/2023 10:12 AM FILLER OPERATOR 08/06/2023 10:24 AM FILLER OPERATOR us Santos Madrigal MD CHEMISTRY ORDERABLES F inal Result [facility] [address] [place] [address] from Last 3 Months or Most Recently Relevant to Health Maintenance Insurance [facility] Care Teams Aircraft Structural Fitter Relationship Specialty Start Date End Date Mason Mijares DO [facility] [facility] [address] PCP - General Internal Medicine 06/25/22 Glory Sanabria MD [address] [id number] Consulting Physician Endocrinology 12/19/23
--- OUTSIDE RECORDS SUMMARY | 2025-02-04 22:55 | XMS_ITS | Clinical Summary ---
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 Improving with lifestyle [...] pump Assessment & Plan (11/10/2021 10:07 AM HARVEST MANAGER): Hba1c was Lab Results Component Value Date [...] 03/18/2011 Assessment & Plan (09/02/2022 4:12 PM HARVEST MANAGER): Chronic problem, improving. 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 file Not on file Not on file Obstetrics History Last Filed Vital Signs Vital Sign Reading Time Taken Comments Blood Pressure 103/70 10/24/2023 10:07 AM HARVEST MANAGER Pulse 81 10/24/2023 10:07 AM HARVEST MANAGER Temperature 36.4 C (97.6 F) 10/24/2023 10:07 AM HARVEST MANAGER Respiratory Rate 18 08/19/2023 9:05 PM HARVEST MANAGER Oxygen Saturation 98% 10/24/2023 10:07 AM HARVEST MANAGER Inhaled Oxygen Concentration - - Weight 87.4 kg (192 lb 9.6 oz) 10/24/2023 10:07 AM HARVEST MANAGER Height 167.6 cm (5' 6) 10/24/2023 10:07 AM HARVEST MANAGER Body Mass Index 31.09 10/24/2023 10:07 AM HARVEST MANAGER Plan of Treatment Health Maintenance Due Date [...] Ended) 2025 Medical Devices Implanted Type Area Vermin Exterminator Device Identifier Shelf Expiration Date Model / Serial / Lot [employer] Inc/C R Bard [id number] Ventralex St Sepra Sorbaflex 2.5in [facility] Bioresorbable - Snone - [id number] Implanted:Qty: 1 on 12/09/2020 by Elvin Mcduffie MD at [facility] Mesh Right: Abdomen [employer]/C R Bard 05/02/2022 [id number] / NONE / [id number] Procedures Procedure Name Priority Date/Time Associated Diagnosis Comments DIABETES EYE EXAM Routine 08/23/2023 8:14 AM HARVEST MANAGER EGFR STAT 08/19/2023 7:02 PM HARVEST MANAGER POCT HEMOGLOBIN A1C Routine 09/02/2022 3 :21 PM HARVEST MANAGER Type 1 diabetes mellitus with hyperglycemia (HCC) LIPID PANEL Routine 07/14/2022 12:20 PM HARVEST MANAGER Type 1 diabetes mellitus with hyperglycemia (HCC) ALBUMIN CREATININE RATIO, URINE Routine 03/16/2022 8:13 AM CDT Type 1 diabetes mellitus with hyperglycemia (HCC) TSH Routine 03/16/2022 8:13 AM CDT Type 1 diabetes mellitus with hyperglycemia (HCC) from Last 3 Months or Most Recently Relevant to Health Maintenance Results * HM DIABETES EYE EXAM (08/23/2023 8:14 AM HARVEST MANAGER) Historical Provider HEALTH MAINTENANCE Final Result * eGFR (08/19/2023 7:02 PM HARVEST MANAGER) eGFR >90 >=60 mL/min/1. 73 m2 [facility] Comment: Interpretive Data Reference Interval Normal >/= [...] last reviewed 2021. Blood 08/19/2023 7:02 PM HARVEST MANAGER 08/19/2023 7:19 PM HARVEST MANAGER Chano Cason MD LAB BLOOD ORDERABLES Nu mora Result [facility] Department [place] [address] * (ABNORMAL) POCT hemoglobin A1c (09/02/2022 3:21 PM HARVEST MANAGER) Hemoglobin A1C, POC 7.2 Blood 09/02/2022 3:21 PM HARVEST MANAGER us Missy PARSON POINT OF CARE TEST ORDMichelle KRUSE Final Result * Lipid panel (07/14/2022 12:20 PM HARVEST MANAGER) Cholesterol 189 30 - 199 mg/dL [facility] [...] last revised on 2018. Chol/HDL ratio 3 [facility] Blood 07/14/2022 12:2 0 PM HARVEST MANAGER 07/14/2022 6:59 PM HARVEST MANAGER Narrative [facility] - 07/14/2022 7:54 PM HARVEST MANAGER These lab test should be done fasting. This means do not eat or drink for at least 12 hours prior to getting your blood drawn. us Joss Tadeo MD LAB BLOOD ORDERABLES Final Resul t Performing Organization Address [facility] Co de Phone Number [facility] [address] [address] Department [place] [address] * Albumin Creatinine Ratio, Urine (03/16/2022 8:13 AM CDT) Albumin Ur 22.8 mg/L [facility] Comment: Interpretive Data No reference range established. Current interpretive data was last revised 2019. Creatinine Ur 280.1 mg/dL [facility] Comment: Interpretive Data No reference range established. Current interpretive data was last revised 2019. Albumin Creatinine Ratio, Ur 8 1 - 29 mg/g [facility] Urine 03/16/2022 8:13 AM CDT 03/16/2022 2:38 PM CDT us Joss Tadeo MD LAB URINE ORDERABLES Final Resul t Performing Organization Address [facility] de Phone Number [facility] [address] [address] Department [place] [address] * TSH (03/16/2022 8:13 AM CDT) Thyroid Stimulating Hormone 2.77 0.30 - 4.20 mcIUnit/mL [facility] Blood 03/16/2022 8:13 AM CDT 03/16/2022 2:38 PM CDT us Joss Tadeo MD LAB BLOOD ORDERABLES Final Resul t Performing Organization Address [facility] Co de Phone Number [facility] [address] [address] Department [place] [address] from Last 3 Months or Most Recently Relevant to Health Maintenance [facility] Advance Directives For more information, please contact: [phone] Documents on File Type Date Recorded Patient Stock Taker Expl anation ADVANCE DIRECTIVE 12/13/2020 11:04 PM ADVANCE DIRECTIVE 12/09/2020 9:09 AM Care Teams Drum Cleaner Relationship Specialty Start Date End Date Mason Mijares DO PCP - General 10/21/14 Elvin Mcduffie MD Consulting Physician General Surgery 12/09/20
--- OUTSIDE RECORDS SUMMARY | 2025-02-04 22:55 | XMS_ITS | Referral Summary ---
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 Improving with lifestyle [...] pump Assessment & Plan (11/10/2021 10:07 AM COLLEGE ADMINISTRATOR): Hba1c was Lab Results Component Value Date [...] 03/18/2011 Assessment & Plan (09/02/2022 4:12 PM COLLEGE ADMINISTRATOR): Chronic problem, improving. 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 file Not on file Not on file Last Filed Vital Signs Vital Sign Reading Time Taken Comments Blood Pressure 103/70 10/24/2023 10:07 AM COLLEGE ADMINISTRATOR Pulse 81 10/24/2023 10:07 AM COLLEGE ADMINISTRATOR Temperature 36.4 C (97.6 F) 10/24/2023 10:07 AM COLLEGE ADMINISTRATOR Respiratory Rate 18 08/19/2023 9:05 PM COLLEGE ADMINISTRATOR Oxygen Saturation 98% 10/24/2023 10:07 AM COLLEGE ADMINISTRATOR Inhaled Oxygen Concentration - - Weight 87.4 kg (192 lb 9.6 oz) 10/24/2023 10:07 AM COLLEGE ADMINISTRATOR Height 167.6 cm (5' 6) 10/24/2023 10:07 AM COLLEGE ADMINISTRATOR Body Mass Index 31.09 10/24/2023 10:07 AM COLLEGE ADMINISTRATOR Plan of Treatment Not on file Medical Devices Implanted Type Area Mechanic/Welder Device Identifier Shelf Expiration Date Model / Serial / Lot [employer] Inc/C R Bard [id number] Ventralex St Sepra Sorbaflex 2.5in [employer] [employer] Bioresorbable - Snone - [id number] Implanted:Qty: 1 on 12/09/2020 by Elvin Mcduffie MD at [facility] Mesh Right: Abdomen [employer]/C R Bard 05/02/2022 [id number] / NONE / [id number] Procedures Procedure Name Priority Date/Time Associated Diagnosis Comments HM DIABETES EYE EXAM Routine 08/23/2023 8:14 AM COLLEGE ADMINISTRATOR EGFR STAT 08/19/2023 7:02 PM COLLEGE ADMINISTRATOR POCT HEMOGLOBIN A1C Routine 09/02/2022 3 :21 PM COLLEGE ADMINISTRATOR Type 1 diabetes mellitus with hyperglycemia (HCC) LIPID PANEL Routine 07/14/2022 12:20 PM COLLEGE ADMINISTRATOR Type 1 diabetes mellitus with hyperglycemia (HCC) ALBUMIN CREATININE RATIO, URINE Routine 03/16/2022 8:13 AM CDT Type 1 diabetes mellitus with hyperglycemia (HCC) TSH Routine 03/16/2022 8:13 AM CDT Type 1 diabetes mellitus with hyperglycemia (HCC) from Last 3 Months or Most Recently Relevant to Health Maintenance Results * DIABETES EYE EXAM (08/23/2023 8:14 AM COLLEGE ADMINISTRATOR) Historical Provider HEALTH MAINTENANCE Final Result * eGFR (08/19/2023 7:02 PM COLLEGE ADMINISTRATOR) eGFR >90 >=60 mL/min/1. 73 m2 [facility] [...] last reviewed 2021. Blood 08/19/2023 7:02 PM COLLEGE ADMINISTRATOR 08/19/2023 7:19 PM COLLEGE ADMINISTRATOR Chano Cason MD LAB BLOOD ORDERABLES Nu l Result [facility] Department [place] [address] * (ABNORMAL) POCT hemoglobin A1c (09/02/2022 3:21 PM COLLEGE ADMINISTRATOR) Hemoglobin A1C, POC 7.2 Blood 09/02/2022 3:21 PM COLLEGE ADMINISTRATOR Missy PARSON POINT OF CARE TEST MILDRED KRUSE Final Result * Lipid panel (07/14/2022 12:20 PM COLLEGE ADMINISTRATOR) Cholesterol 189 30 - 199 mg/dL [facility] [...] [facility] Blood 07/14/2022 12:2 0 PM COLLEGE ADMINISTRATOR 07/14/2022 6:59 PM COLLEGE ADMINISTRATOR Narrative [facility] - 07/14/2022 7:54 PM COLLEGE ADMINISTRATOR These lab test should be done fasting. This means do not eat or drink for at least 12 hours prior to getting your blood drawn. us Joss Tadeo MD LAB BLOOD ORDERABLES Final Resul t [facility] [address] [address] Department [place] [address] * Albumin Creatinine Ratio, Urine [...] ORDERABLES Final Resul t Performing Organization Address [facility] Co de Phone Number [facility] [place] [address] [address] Department [place] [address] * TSH (03/16/2022 8:13 AM CDT) Thyroid Stimulating Hormone 2.77 0.30 - 4.20 mcIUnit/mL [facility] Blood 03/16/2022 8:13 AM CDT 03/16/2022 2:38 PM CDT us Joss Tadeo MD LAB BLOOD ORDERABLES Final Resul t Performing Organization Address [facility] Co de Phone Number [facility] [place] [address] [address] Department [place] [address] from Last 3 Months or Most Recently Relevant to Health Maintenance Insurance [facility] Advance Directives For more information, please contact: [phone] Documents on File Type Date Recorded Patient Mobile Sales Assistant Expl anation ADVANCE DIRECTIVE 12/13/2020 11:04 PM ADVANCE DIRECTIVE 12/09/2020 9:09 AM Care Teams Tape Calender Relationship Specialty Start Date End Date Mason Mijares DO PCP - General 10/21/14 Elvin Mcduffie MD Consulting Physician General Surgery 12/09/20
--- OUTSIDE RECORDS SUMMARY | 2025-02-04 22:55 | XMS_ITS | Encounter Summary ---
Author Organization [facility] Address [address] [place] [address] Care Team Providers Care Lab Technician Name Role Phone Milagromary annMason DO Primary Care Provider [phone] Encounter Details Date Type Department Care Team (Late st Contact Info) Description 03/01/2024 Lab Requisition [facility] - DermPath Lab [address] [facility] [place] [id number] Aris Dunn MD [address] [address] Social History Tobacco Use Types Packs/Day Years Used Date Smoking Tobacco: Never Smokeless Tobacco: Never Comments No Sex and Gender Information Value Date Recorded Sex Assigned at Not on file Legal Sex Female 3:14 PM [employer] Gender Identity Female Sexual Orientation Not on file documented as of this encounter Plan of Treatment Not on file documented as of this encounter Procedures Procedure Name Priority Date/Time Associated Diagnosis Comments DERMATOPATHOLOGY Routine 02/28/2024 12:0 0 AM CDT documented in this encounter Results * DERMATOPATHOLOGY (02/28/2024 12:00 AM CDT) Case Report Dermatopathology Report Case: [id number] Authorizing Provider: Aris Dunn MD Collected: 02/28/2024 12:00 AM Ordering Location: [facility] - Received: 03/01/2024 12:26 PM [...] characteristic determined by the Dermatopathology Laboratory at [facility], directed by Dr. Keo Bee. These tests need not be, and therefore are not, approved by the [place] Food and Drug Administration. The tests are used for clinical purposes. Billing Codes Specimen Charges Stain Charges 12983 1 12:50 PM CDT DERMATOPATHOLOGY LABORATORY Embedded Images 12:50 PM CDT DERMATOPATHOLOGY LABORATORY Pathology/Cytolog y TISSUE SPECIMEN FROM SKIN / Unknown 02/28/2024 03/01/2024 12:26 PM CDT us Aris Dunn MD LAB - PATHOLOGY/CYTOLOGY ORDERAB LES Final Result DERMATOPATHOLOGY LABORATORY [facility] - Department of Dermatology [facility] Special[facility], 3rd Floor [address] [phone] documented in this encounter Visit Diagnoses Not on filedocumented in this encounter Care Teams Lab Technician Relationship Specialty Start Date End Date Mason Mijares DO PCP - General Internal Medicine 11/09/16 documented as of this encounter
--- OUTSIDE RECORDS SUMMARY | 2025-02-04 22:55 | XMS_ITS | Continuity of Care Document ---
Author Organization [facility] Address [address] [place] [address] Deleon [address] [place] [address] Phone Care Team Providers Care Seasonal Warehouse Associate Name Role Phone Aleisha OD, Krysta Unavailable Unavailable Allergies, Adverse Reactions, Alerts Substance [...] route every day Not Available - Active Humalog Mix 75-25 (U-100) Insulin 100 unit/mL subcutaneous suspension inject by subcutaneous route per prescriber's instructions. Insulin dosing requires individualization. 0.00 - Active omeprazole 40 mg capsule,delayed release take 1 capsule by oral route every day before a meal 40 MG - Active albuterol sulfate HFA 90 mcg/actuation aerosol inhaler inhale 2 puff by inhalation route every 4 - 6 hours as needed 180 MCG - Active Procedures Procedure Date No Charge [...] Copied on Encounter Office/outpa tient Visit, [facility], [address] [place] [address] [address], [place], [place], [address], [place] tel:[phone] SEC [place] Professional Follow up visit (chief complaint) Dry eye syndrome of bilateral lacrimal glandsPresen ce of intraocular lensVitreous degeneration of right eye January- 3202 5 Aleisha OD Krysta. [address] [place] [address] [address], [address], [place], [place], [address], [place]. tel:[phone] Glory Sanabria MD.Referrin g Provider: Kenton Nelson, [address] [facility] [address], [place], [address]. tel:[phone] [facility], [address] [place] [address] [address], [place], [place], [address], [place] tel:[phone] [facility] Post-op (chief complaint) Dry eye syndrome of bilateral lacrimal glandsPostop check Dec- 5 Aleisha OD Krysta. [address] [place] [address] [address], [address], [place], [place], [address], [place]. tel:[phone] Specialist: Glory Sanabria MD, [address] [place], [address]. tel:[phone] ring Provider: Kenton Nelson, [address] [facility] [address], [place], [address]. tel:[phone] Office/outpa tient Visit, [facility], [address] [place] [address] [address], [place], [place], [address], [place] tel:[phone] [place] Professional Follow up visit (chief complaint) Other secondary cataract, right eye Mar-0 4-202 5 Mcguffey Abdi. [address] [place] [address], [address], [place], [place], [address], [place]. tel:[phone] Joss Tadeo MD.Natalya Gauthier MD.Referrin g Provider: Kenton Nelson, [address] [facility] [address], [place], [address]. tel:[phone] Office/outpa tient Visit, [facility], [address] [place] [address] [address], [place], [place], [address], [place] tel:[phone] SEC [place] Professional Complete Exam (chief complaint) Dry eye syndrome of bilateral lacrimal glandsOther secondary cataract, right eyeType 1 diabetes mellitus without complication s 4 Aleisha OD Krysta. [address] [place], [place] [address]i, [address], [place], [place], [address], [place]. tel:[phone] Joss Tadeo MD.Natalya Gauthier MD.Referrin g Provider: Kenton Nelson, [address] [facility] [address], [place], [address]. tel:[phone] Office/outpa tient Visit, [facility], [address] [place] [address] [address], [place], [place], [address], [place] tel:[phone] SEC [place] Professional Flashes lights (chief complaint) Type 1 diabetes mellitus without complication sDry eye syndrome of bilateral lacrimal glandsTrigem inal nerve disorder, unspecified 4 Aleisha OD Krysta. [address] [place] [address] [address], [address], [place], [place], [address], [place]. tel:[phone] Joss Tadeo MD.Natalya Gauthier MD.Referrin g Provider: Kenton Nelson, [address] [facility] [address], [place], [address]. tel:[phone] Office/outpa tient Visit, [facility], [address] [place] [address] [address], [place], [place], [address], [place] tel:[phone] SEC [place] Professional Follow up visit (chief complaint) Vitreous degeneration , left eye 4 Katrin OD Stacy. [address] [place] [address] Drive, [address], [place], [place], [address], [place]. tel:[phone] Joss Tadeo MD.Natalya Gauthier MD.Referrin g Provider: Kenton Nelson, [address] [facility] [address], [place], [address]. tel:[phone] Office/outpa tient Visit, [facility], [address] [place] [address] [address], [place], [place], [address], [place] tel:[phone] SEC Sudhakar KNAPP Professional Complete Exam (chief complaint) Type 1 diabetes mellitus without complication sPresence of intraocular lensOther secondary cataract, right eyeVitreous degeneration , left eyeDry eye syndrome of bilateral lacrimal glands 3 Katrin KRAMER Stacy. [facility] [employer], [address], [place], [place], [address], [place]. tel:[phone] Joss Tadeo MD.Natalya Gauthier [place].Speciali [place]: [place], [address] [facility] [address], [place], [address]. [phone] ring Provider: Stacy Wilkes OD L, [facility] [address], [place], [address]. tel:[phone] [facility], [address], [place], [place], [address], [place] tel:[phone] SEC Sudhakar KNAPP Professional Post-Op (chief complaint) Postop check Kimmy Fung. [address] [facility], [address], [place], [place], [address], [place]. tel:[phone] Joss Tadeo MD.Natalya Gauthier MD.Referrin g Provider: Kenton Nelson, [address] [facility] [address], [place], [address]. tel:[phone] Office/outpa tient Visit, [facility], [address] [place] [address] [address], [place], [place], [address], [place] tel:[phone] SEC Sudhakar KNA[place] Professional YAG capsulotomy evaluation (chief complaint) Other secondary cataract, bilateralOth er secondary cataract, left eye 3 Jaye Patton. [address] [place] [address] [facility], [address], [place], [place], [address], [place]. tel:[phone] Specialist: [place], [address] [facility] [address], [place], [address]. tel:[phone] alist: Natalya Gauthier MD, [address] [facility] [address], [place], [address]. tel:[phone] ring Provider: Kenton Nelson, [address] [facility] [address], [place], [address]. tel:[phone] [facility], [address] [place] [address] [address], [place], [place], [address], [place] tel:[phone] SEC Sudhakar KNAPP Professional Complete Exam (chief complaint) PresbyopiaPr esence of intraocular lensType 1 diabetes mellitus without complication sKeratoconju nctivitis sicca of both eyes not due to Sjogren's syndrome Dec-0 3 Katrin OD Stacy. [address] [place], [place] [address]crest [employer] [facility], [address], [place], [place], [address], [place]. tel:[phone] Joss Tadeo MD.Referrin g Provider: Kenton Nelson, [address] [facility] [address], [place], [address]. tel:[phone] [facility], [address] [place], [place] [address] [address], [place], [place], [address], [place] tel:[phone] SEC Sudhakar KNA[place] Professional 2 wk IOL exchange PO (10/27/22) (chief complaint) Postop check Nov- 3 Katrin OD Stacy. [facility] [employer], [address], [place], [place], [address], [place]. tel:[phone] Joss Tadeo MD.Referrin g Provider: Kenton Nelson, [address] [facility] [address], [place], [address]. tel:[phone] [facility], [address] [place] [address] [address], [place], [place], [address], [place] tel:[phone] SEC [place] Professional 1 week po IOL Exchange OS (10/27/22) (chief complaint) Postop check Nov-0 3 Katrin OD Stacy. [address] [place], [place] [address], [address], [place], [place], [address], [place]. tel:[phone] Joss Tadeo MD.Referneisha damon Provider: Kenton Nelson, [address] [facility] [address], [place], [address]. tel:[phone] [facility], [address] [place] [address] [address], [place], [place], [address], [place] tel:[phone] SEC [place] Professional post op (chief complaint) Postop check Oct- 3 Katrin OD Stacy. [address] [place], [place] [address]crest [employer], [address], [place], [place], [address], [place]. tel:[phone] Joss Tadeo MD.Referneisha damon Provider: Kenton Nelson, [address] [facility] [address], [place], [address]. [phone] [facility], [address] [place] [address] [address], [place], [place], [address], [place] tel:[phone] [facility] No Information 3 Perez Fung. [address] [facility], [facility], [place], [place], [address], [place]. tel:[phone] Referring Provider: Kenton Nelson, [address] [facility] [address], [place], [address]. tel:[phone] [facility], [address] [place] [address] [address], [place], [place], [address], [place] tel:[phone] SEC Sudhakar KNAPP Professional Post-Op (chief complaint) Postop checkOther mechanical complication of intraocular lens, subsequent encounter b1 3 Perez Fung. [address] [employer], [address], [place], [place], [address], [place]. tel:[phone] Joss Tadeo MD.Referrin g Provider: Kenton Nelson, [address] [employer] [address], [place], [address]. tel:[phone] [facility], [address] [place] [address] [address], [place], [place], [address], [place] tel:[phone] SEC Sudhakar KNAPP Professional 1 week s/p PCIOL (chief complaint) Postop check b-0 3 Katrin OD Stacy. [address] [place], [place] [address], [address], [place], [place], [address], [place]. tel:[phone] Joss Tadeo MD.Referneihsa g Provider: Kenton Nelson, [address] [employer] [address], [place], [address]. tel:[phone] [facility], [address], [place], [place], [address], [place] tel:[phone] SEC Sudhakar KNAPP Professional post op (chief complaint) Postop check Feb-0 2 3 Katrin OD Stacy. [facility] [employer], [address], [place], [place], [address], [place]. tel:[phone] Joss Tadeo MD.Referneisha g Provider: Kenton Nelson, [address] [employer] [address], [place], [address]. tel:[phone] [facility], [address] [address], [place], [place], [address], [place] tel:[phone] [facility] No Information 3 Perez Fung. [address], [address], [place], [place], [address], [place]. tel:[phone] Joss Tadeo MD.Phoebe damon Provider: Kenton Nelson, [address], [place], [address]. tel:[phone] Office/outpa tient Visit, [facility], [address] [place] [address] [address], [place], [place], [address], [place] tel:[phone] SEC Sudhak[place] Professional Cataract evaluation (chief complaint) Keratoconjun ctivitis sicca of both eyes not due to Sjogren's syndromePres ence of intraocular lensType 1 diabetes mellitus without complication Purnima-related nuclear cataract, right eyeOther secondary cataract, left eye 2 Perez Fung. [address], [address], [place], [address], [place]. tel:[phone] Joss Tadeo MD.Referneisha damon Provider: Kenton Nelson, [address], [place], [address]. tel:[phone] Office/outpa tient Visit, [facility], [address] [place] [address] [address], [place], [place], [address], [place] tel:[phone] SEC [place] Professional WIE (chief complaint) Presence of intraocular lensType 1 diabetes mellitus without complication sKeratoconju nctivitis sicca of both eyes not due to Sjogren's syndromeComb ined forms of age-related cataract, left eye Aug- 2 Perez Fung. [address], [address], [place], [place], [address], [place]. tel:[phone] Joss Tadeo MD.Phoebe damon Provider: Kenton Nelson, [address], [place], [address]. tel:[phone] Office/outpa tient Visit, [facility], [address], [place], [place], [address], [place] tel:[phone] SEC Sudh[place] Professional flashes of light (chief complaint) Presence of intraocular lensCombined forms of age-related cataract, left eyeKeratocon junctivitis sicca of both eyes not due to Sjogren's syndromeType 1 diabetes mellitus without complication s Oct-3 2 Perez Fung. [address] [facility], [address], [place], [place], [address], [place]. tel:[phone] Specialist: [place], [address] [facility] [address], [place], [address]. tel:[phone] ring Provider: Kenton Nelson, [address] [facility] [address], [place], [address]. 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 Pt. states her last HA1C [...]
--- NOTE | 2025-02-04 23:03 | ED_ITS ---
HPI - Allergic Reaction General Chief complaint: Allergic Reaction Stated complaint: Poss insect sting-allergic reaction Time Seen by Provider: 02/04/25 22:41 Source: patient and family Mode of arrival: ambulatory Limitations: no limitations History of Present Illness HPI narrative: Patient presents with concern for allergic reaction. She was working in the garden and noticed some rashes/lesions on her left arm but without feeling any particular bites/stings. Her arm aches throughout. The lesion most proximally itches, it is adjacent to where she had her continuous glucose monitor which she has since moved to another location. 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 Did not administer her epi pen. Had gone into a store to buy benadryl but didn't take it yet. History of T1DM and stress induced asthma. At triage she was intermittently stuttering and tearful. She is complaining of chest tightness and trouble forming words with jaw tightness and feeling like she has tenseness in her throat with tongue spasms. Related Data Home Medications ?Medication ?Instructions ?Recorded ?Confirmed ?Last Taken ?Type blood sugar diagnostic (OneTouch #10 ea 07/30/19 01/21/25 Unknown History Verio test strips) pen needle, diabetic 31 gauge x #30 ea 05/27/20 01/21/25 Unknown History 11/18 (BD Ultra-Fine Mini Pen Needle) insulin aspart U-100 100 unit/mL See Rx Instructions .Route .COMPLEX 07/23/22 01/21/25 Unknown History subcutaneous solution (Novolog U-100 Insulin aspart) perfluorohexyloctane (PF) 100 % 1 drp LEFT EYE Q4H 05/28/24 01/21/25 Unknown History eye drops (Miebo (PF)) blood-glucose sensor (Dexcom G7 #1 ea 01/21/25 01/21/25 Unknown History Sensor device) cyclosporine 0.05 % eye drops in a drp EACH EYE 01/21/25 01/21/25 Unknown History dropperette (Restasis) insulin pump cart,auto,BT,G6/7 #5 ea 01/21/25 01/21/25 Unknown History (Omnipod 5 G6-G7 Pods (Gen 5) subcutaneous cartridge) Allergies Allergy/AdvReac Type Severity Reaction Status Date / Time latex Allergy Severe Rash Verified 01/21/25 11:47 Penicillins Allergy Unknown Other Verified 01/21/25 11:47 venom-wasp Allergy Unknown SWELLING, Verified 01/21/25 11:47 THROAT SWELLING bee venom protein (honey Allergy THROAT Verified 01/21/25 11:47 bee) (bees) SWELLING mushroom Allergy THROAT Verified 01/21/25 11:47 SWELLING Statins Allergy Intermediate Unknown Uncoded 01/21/25 11:47 PMFSH Past Medical History Medical History Subluxation of lens, left eye Right upper quadrant pain Anxiety COVID-19 Varicose veins of both lower extremities Asthma Bronchitis GERD (gastroesophageal reflux disease) Surgical History Surgical History History of endometrial ablation History of cataract surgery Right eye 02/2022 History of hernia repair H/O dilation and curettage Status post cervical polyp removal H/O shoulder surgery Right and left H/O foot surgery Left foot bone replacement History of repair of ACL H/O adenoidectomy History of tonsillectomy Family History Family History Mother Family history of thyroid disease Father Family history of blood dyscrasia Grandparent Cerebrovascular accident Other Hypertension Osteoarthritis Social History Social History Smoking status: Never smoker Second hand tobacco smoke exposure: No Alcohol intake: current Alcohol use details: rarely Substance use: never Substance use type: does not use Lack of Transportation: No Lack of Food: Never True Current Housing: I Have Housing Concerned About Future Housing: No Difficulty Paying Gas/Electric Bills: No Difficulty Paying for Meds: No Currently Unemployed: No Education: Master's Degree or Higher Difficulty w/ Childcare or Family Care: No Living arrangements: with family Occupation/Education: occupation 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 HEAD: Normocephalic, atraumatic. EYES: Non injected, non icteric ENT: Nares clear, no rhinorrhea or epistaxis. Gross auditory acuity intact. Uvula midline. Posterior orpharynx normal without edema/hyperemia/hypertrophy/swelling. NECK: Supple. No meningismus. No lymphadenopathy. CHEST: Speaking in full sentences. No respiratory distress. Lungs clear to auscultation without bronchospasm/wheezes/crackles/stridor. HEART: Regular rate and rhythm. . ABDOMEN: Soft, nondistended. No rigidity or guarding. Not peritoneal EXTREMITIES: Normal range of motion. No lower extremity edema. SKIN: Warm, dry. 3 small lesions on left forearm and one 1cm x 2cm lesion on left proximal upper/mid arm with punctate centralized mild ulceration and surrounding localized edema and erythema but without appreciable antigen within NEURO: No focal deficits. Alert and oriented. Answering questions. Following commands. Normal speech without aphasia or dysarthria. PSYCH: Normal mood and affect. Course Vital Signs Vital signs: Vital Signs Temperature 97.6 F 02/04/25 21:35 Pulse Rate 82 02/04/25 21:35 Respiratory Rate 16 02/04/25 21:35 Blood Pressure 196/76 H 02/04/25 21:35 Pulse Oximetry 98 02/04/25 21:35 Oxygen Delivery Room Air 02/04/25 21:35 Temperature 97.6 F 02/04/25 21:35 Pulse Rate 71 02/05/25 04:16 Respiratory Rate 15 02/05/25 04:16 Blood Pressure 123/73 02/05/25 04:16 Pulse Oximetry 99 02/05/25 04:16 Oxygen Delivery Room Air 02/04/25 22:49 MDM - Allergic Reaction MDM Narrative Medical decision making narrative: Patient presents with concern for allergic reaction. had been working in the garden and noticed lesions on left arm associated with achiness throughout arm though without distinctly appreciating being bit/stung. 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 Has an epi pen (though unknown expiration date) but not used. Had been about to purchase diphenhydramine in the store but presented to the ED without taking anything given felt like having chest tightness, trouble forming words, jaw/throat/tongue tightness/spasm. In the emergency department she is afebrile with vital signs notable for hypertension. Notably, not hypoxic tachypneic or tachycardic. Has some localized erythema with pruritus. The patient is otherwise well appearing without watery eyes, rhinorrhea, sneezing, stridor, tachypnea, bronchospasm, hypoxia, increased bronchial secretions, wheezing, increased work of breathing, hypotension, tachycardia, angioedema, GI symptoms, abdominal cramping, diarrhea. Systemic corticosteroids 40mg prednisone, Antihistamine (diphenhydramine 25 mg PO) ordered. Still having symptoms so additional medication ordered. No antigen for removal. Patient reports still feeling strangely. Although no signs on physical exam to suggest decompensation, she is subjectively experiencing throat tightness and a sense of impending doom with confusion. For this reason 1:1000 epinephrine 0.3mg was administered intramuscularly. Topical diphenhydramine also provided. Patient was educated about anaphylaxis and prescribed 2 epinephrine autoinjector time of discharge. Patient also provided with outpatient steroid Rx and dip henhydramine. Patient is reassessed 4 hours after receiving epinephrine and she remains stable her symptoms have resolved. Patient reassessed and reports feeling better. Symptoms improved without new symptoms developing. Differential Diagnosis Differential diagnosis: Likely anaphylaxis, allergic reaction, angioedema, contact dermatitis, adverse reaction to drug and urticaria Imaging Data Attestation: I personally reviewed and interpreted this imaging study as follows: My impression: Cardiomegaly on my independent interpretation of chest x-ray ECG Data EKG #1: Attestation: I personally reviewed and interpreted this ECG as follows: ECG completion date: 02/04/25 ECG completion time: 21:52 Prior ECG tracings: available for review (EKG 04/21/2021 appears similar) Interpretation: Normal sinus rhythm at a rate of 78 beats per minute. WI interval 194. QRS 80. QT/QTC 369/420. Good R-wave progression across the precordial leads. Slightly low amplitude possibly due to body habitus. No T-wave inversions. Discharge Plan Discharge Clinical Impression: Allergic reaction Patient Disposition: Home Condition: Stable Instructions: Antibiotic Form, General Allergic Reaction (ED) Additional Instructions: As we discussed, you will continue a short course of steroid over the next several days. You are aware this may affect her blood sugars but continue to use your sliding scale insulin incorrect as appropriate. Your epinephrine auto pen has been prescribed again. Follow-up with primary care physician. Return to the emergency department with any new, worsening, or unmanaged symptoms. Patient Language: Finnish Prescriptions: New prednisone 20 mg tablet 20 mg PO DAILY 4 Days Qty: 4 0RF Rx Instructions: start 02/05/25 ; take before 9am if possible diphenhydramine HCl [Allergy (diphenhydramine)] 25 mg capsule 25 mg PO TID PRN (Reason: allergy symptoms) Qty: 20 0RF epinephrine [EpiPen] 0.3 mg/0.3 mL auto-injector 0.3 mg IM Q5-15M PRN (Reason: anaphylaxis) Qty: 1 0RF Rx Instructions: do not exceed 3 doses per episode No Action insulin aspart U-100 [Novolog U-100 Insulin aspart] 100 unit/mL solution See Rx Instructions .ROUTE .COMPLEX Rx Instructions: sliding scale Miebo (PF) 100 % drops 1 drp LEFT EYE Q4H (DME) pen needle, diabetic [BD Ultra-Fine Mini Pen Needle] 31 gauge x 3/16 needle See Rx Instructions .ROUTE .MEDSUPPLY Qty: 30 Rx Instructions: Use with insulin injections 5-6 times daily (DME) Dexcom G6 Transmitter Device See Rx Instructions .ROUTE .MEDSUPPLY Qty: 1 3RF Rx Instructions: replace every 90 days cyclosporine [Restasis] 0.05 % dropperette EACH EYE (DME) Dexcom G7 Sensor Device See Rx Instructions .ROUTE .MEDSUPPLY Qty: 1 Rx Instructions: [place] Omnipod 5 G6-G7 Pods (Gen 5) Cartridge See Rx Instructions .ROUTE .MEDSUPPLY Qty: 5 Rx Instructions: As directed [place] OneTouch Verio test strips Strip See Rx Instructions .ROUTE .MEDSUPPLY Qty: 10 Rx Instructions: Use to check BS 4-6 times daily albuterol sulfate [ProAir HFA] 90 mcg/actuation HFA aerosol inhaler 1 inh INHALATION DIRECTED PRN (Reason: Shortness Of Breath Or Wheezing) Qty: 8.5 3RF (DME) Dexcom G6 Floral Arranger Misc See Rx Instructions .ROUTE .MEDSUPPLY Qty: 0 0RF Rx Instructions: She is using her Android phone as the music publicist. Follow-up/Referrals: Mason Mijares DO [Primary Care Provider] - Stand Alone Forms: Work/School Release IP
[2025-02-04] MEDS: predniSONE 20 MG TABLET 40 MG PO (23:26)
[2025-02-04] MEDS: diphenhydrAMINE HCl CAP 25 MG CAPSULE PO (23:27)
[2025-02-04] MEDS: DIPHENHYDRAMINE 1%/ZINC 0.1% CREAM 30 GM TUBE 1 APPLIC TOPICAL (23:43)
[2025-02-04] MEDS: FAMOTIDINE 20 MG TABLET PO (23:57)
[2025-02-05] VITALS (20 sets, daily range): BP systolic 119–145; BP diastolic 57–79; PULSE 66–90; RESP 13–21; O2SAT 92–100
[2025-02-05] MEDS: EPINEPHrine HCL INJ 1 MG/ML AMPUL 0.3 MG IM (00:53)
== END 2025-02-05 04:17 | disposition home or self-care (01) ==
PROVIDERS: Emergency Provider Student in an Organized Health Care Education/Training Program; PCP Internal Medicine
DX: T78.40XA Allergy, unspecified, initial encounter (principal); R94.31 Abnormal electrocardiogram [ECG] [EKG]; F41.9 Anxiety disorder, unspecified; J45.909 Unspecified asthma, uncomplicated; K21.9 Gastro-esophageal reflux disease without esophagitis
CPT/HCPCS: 71045; 93005; 96372; 99283; A9270; J0171; J7512

== ENCOUNTER 2025-02-15 16:41 | Emergency (ER) | payer BC, SELFPAY ==
--- NOTE | ~2025-02-15 | US_ITS ---
LEFT UPPER EXTREMITY VENOUS ULTRASOUND Ordering provider: Jami Wilcox PA-C History: . left arm pain . Comparison: None. FINDINGS: --JUGULAR: Patent and free of thrombus. Normal compressibility, phasic flow and augmentation. --SUBCLAVIAN: Patent and free of thrombus. Normal compressibility, phasic flow and augmentation. --AXILLARY: Patent and free of thrombus. Normal compressibility, phasic flow and augmentation. --BRACHIAL: Patent and free of thrombus. Normal compressibility, phasic flow and augmentation. --CEPHALIC: Patent and free of thrombus. Normal compressibility, phasic flow and augmentation. --BASILIC: Patent and free of thrombus. Normal compressibility, phasic flow and augmentation. --RADIAL: Patent and free of thrombus. Normal compressibility, phasic flow and augmentation. --ULNAR: Patent and free of thrombus. Normal compressibility, phasic flow and augmentation. Pancreas IMPRESSION: Negative left upper extremity venous US. No deep vein thrombosis. Reviewed, dictated and finalized at location A.
--- NOTE | ~2025-02-15 | CT_ITS ---
CTA brain carotid Ordering provider: Jami Wilcox PA-C History: . headaches, dizziness . Comparison: January 24, 2025. Technique: CT angiogram head and neck was performed following timed intravenous injection of contrast . Thin slice axial images and reformatted coronal images were obtained. Three dimensional reformatted images of the brain were also obtained using a [employer] workstation. Radiation reduction technique ut ilized.The dose-length product was 1587.9 mGy-cm. 100 mL Omnipaque 350 was given IV. FINDINGS: HEAD: --ANTERIOR AND MIDDLE CEREBRAL ARTERIES AND BRANCHES: Normal caliber and contour. --INTERNAL CAROTID ARTERIES: Mild atheromatous disease but no significant stenosis. No occlusion. --BASILAR ARTERY AND BRANCHES: Normal caliber and contour. No atheromatous disease. --POSTERIOR CEREBRAL ARTERIES: Normal caliber and contour --POSTERIOR COMMUNICATING ARTERIES: Not visualized which is probably related to congenital absence or small size. --ANEURYSM: None visualized. --BRAIN: Normal for patient's age. --BONES AND SUPERFICIAL SOFT TISSUES: Normal. --PARANASAL SINUSES AND MASTOIDS: Well aerated. NECK: --RIGHT CERVICAL CAROTID SYSTEM: Normal caliber and contour. Percent stenosis per NASCET criteria is 0%. No carotid dissection. Otherwise, no significant atheromatous disease or stenosis of the cervica l carotid system. --LEFT CERVICAL CAROTID SYSTEM: Normal caliber and contour. Percent stenosis per NASCET criteria is 0%. No carotid dissection. Otherwise, no significant atheromatous disease or stenosis of the cervical carotid system. --VERTEBRAL ARTERIES: Normal caliber and contour. --VISUALIZED AORTIC ARCH AND BRANCHING VESSELS: Normal caliber and contour. No significant atheromato us disease. Dependent atelectatic changes. --SOFT TISSUES: Normal. --CERVICAL SPINE: Age appropriate degenerative changes. IMPRESSION: 1. Normal CTA head and neck. Percent stenosis per NASCET criteria is 0%. Reviewed, dictated and finalized at location A.
--- NOTE | ~2025-02-15 | XR_ITS ---
XR chest 2V Ordering provider: Jami Wilcox PA-C History: 55 years Female with . Left shoulder pain . Comparison: February 08, 2025 FINDINGS: MEDIASTINUM: The cardiac silhouette is not enlarged. LUNGS: No infiltrates, effusions or pneumothorax. OTHER: No free air under the diaphragm. IMPRESSION: No acute cardiopulmonary pathology. Reviewed, dictated and finalized at location A.
--- OUTSIDE RECORDS SUMMARY | 2025-02-15 16:47 | XMS_ITS | Encounter Summary ---
Author Organization [facility] Address [address] [place] [address] Phone Care Team Providers Care Lead Die Molder Name Role Phone MilagrosharifaMason allenian Primary Care Provider Glory Sanabria MD Unavailable Reason for Visit * Reason Comments Medication Refill Encounter Details Date Type Department Care Team (Late st Contact Info) Description 01/23/2024 Refill [facility] - Endocrinology - [place] [address] [place] [address] Glory Sanabria MD [id number] [address] Medication Refill Social History Tobacco [...] on filedocumented in this encounter Care Teams Lead Die Molder Relationship Specialty Start Date End Date Mason Mijares DO [address] [place] [place] [address] PCP - General Internal Medicine 06/25/22 Glory Sanabria MD [id number] [id number] Consulting Physician Endocrinology 12/19/23 documented as of this encounter
--- OUTSIDE RECORDS SUMMARY | 2025-02-15 16:47 | XMS_ITS | Clinical Summary ---
Author Organization [facility] Address [address] [place] [address] Care Team Providers Care Belt Loop Machine Operator Name Role Phone Mason Mijares DO Primary Care Provider [phone] Source Comments [facility],non-owned Affiliates and Associated Physician Practices is amultiple site organization consisting of ambulatory clinics and hospital sitesin [place], [place], [place] and [place]. This disclosure is being madepursuant to the Care Everywhere program and may not contain all information available regarding this patient. 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 CHEMIST Gender Identity Female Sexual Orientation Not on file Last Filed Vital Signs Vital Sign Reading Time Taken Comments Blood Pressure 110/70 10/02/2018 11:23 AM FORMULATION CHEMIST Pulse 74 10/02/2018 11:23 AM FORMULATION CHEMIST Temperature 37.2 C (99 F) 10/02/2018 11:23 AM FORMULATION CHEMIST Respiratory Rate 16 10/02/2018 11:23 AM FORMULATION CHEMIST Oxygen Saturation 98% 10/02/2018 11:23 AM FORMULATION CHEMIST Inhaled Oxygen Concentration - - Weight 88 kg (194 lb) 10/02/2018 11:23 AM FORMULATION CHEMIST Height 167.6 cm (5' 6) 10/02/2018 11:23 AM FORMULATION CHEMIST Body Mass Index 31.31 10/02/2018 11:23 AM FORMULATION CHEMIST Plan of Treatment Health Maintenance Due Date [...] Most Recently Relevant to Health Maintenance Insurance [employer] [facility] Address: [address] [place] [address] [employer] Member Subscriber Plan / Payer (Ef fective 2023-Present) Name:Natalia Morrissey Carla Relation to Subscriber:Self Name:Natalia Morrissey Payer ID:[id number] (NAIC) Group ID:Not on file Type:O Address: [address] [place] [address] [employer] Care Teams Belt Loop Machine Operator Relationship Specialty Start Date End Date Mason Mijares DO PCP - General Internal Medicine 11/09/16
--- OUTSIDE RECORDS SUMMARY | 2025-02-15 16:47 | XMS_ITS | Continuity of Care Document ---
Author Organization [facility] [place] [facility] [place] [id number] [place] [address] Deleon [address] [place] [address] Phone Care Team Providers Care Batting Machine Operator Name Role Phone Aleisha OD, Krysta Unavailable [...] Copied on Encounter Office/outpa tient Visit, [facility], [id number] [place] [address] [address], [place], [place], [address], [place] tel:[phone] SEC [place] Professional Follow up visit (chief complaint) Dry eye syndrome of bilateral lacrimal glandsPresen ce of intraocular lensVitreous degeneration of right eye January- 3202 5 Aleisha OD Krysta. [address] [place] [address] D[address], [address], [place], [place], [address], [place]. tel:[phone] Glory Sanabria MD.Referrin g Provider: Kenton Nelson, [address] [facility] [address], [place], [address]. tel:[phone] [facility], [address] [place] [address] [address], [place], [place], [address], [place] tel:[phone] [facility] [place] [facility] Post-op (chief complaint) Dry eye syndrome of bilateral lacrimal glandsPostop check Dec- 5 Aleisha OD Krysta. [address] [place] [address] D[address], [address], [place], [place], [address], [place]. tel:[phone] Specialist: Glory Sanabria MD, [address] [place], [address]. tel:[phone] ring Provider: Kenton Nelson, [address] [facility] [address], [place], [address]. tel:[phone] Office/outpa tient Visit, [facility], [id number] [place] [address] [address], [place], [place], [address], [place] tel:[phone] [place] Professional Follow up visit (chief complaint) Other secondary cataract, right eye Mar-0 4-202 5 [place] Abdi. [address] [place] [address], [address], [place], [place], [address], [place]. tel:[phone] Joss Tadeo MD.Natalya Gauthier MD.Referrin g Provider: Kenton Nelson, [address] [facility] [address], [place], [address]. tel:[phone] Office/outpa tient Visit, [facility], [address] [place] [address] [address], [place], [place], [address], [place] tel:[phone] [place] Professional Complete Exam (chief complaint) Dry eye syndrome of bilateral lacrimal glandsOther secondary cataract, right eyeType 1 diabetes mellitus without complication s 4 Aleisha OD Krysta. [address] [place], [place] [address]i, [address], [place], [place], [address], [place]. tel:[phone] Joss Tadeo MD.Natalya Gauthier MD.Referrin g Provider: Kenton Nelson, [address] [facility] [address], [place], [address]. tel:[phone] Office/outpa tient Visit, [facility], [address] [place] [address] [address], [place], [place], [address], [place] tel:[phone] [place] Professional Flashes lights (chief complaint) Type 1 diabetes mellitus without complication sDry eye syndrome of bilateral lacrimal glandsTrigem inal nerve disorder, unspecified 4 Aleisha OD Krysta. [address] [place] [address] D[address], [address], [place], [place], [address], [place]. tel:[phone] Joss Tadeo MD.Natalya Gauthier MD.Referrin g Provider: Kenton Nelson, [address] [facility] [address], [place], [address]. tel:[phone] Office/outpa tient Visit, [facility], [address] [place] [address] [address], [place], [place], [address], [place] tel:[phone] [place] Professional Follow up visit (chief complaint) Vitreous degeneration , left eye 4 Katrin OD Stacy. [address] [place] [address] Drive, [address], [place], [place], [address], [place]. tel:[phone] Joss Tadeo MD.Natalya Gauthier MD.Referrin g Provider: Kenton Nelson, [address] [facility] [address], [place], [address]. tel:[phone] Office/outpa tient Visit, [facility], [address] [place] [address] [address], [place], [place], [address], [place] tel:[phone] SEC [place] Professional Complete Exam (chief complaint) Type 1 diabetes mellitus without complication sPresence of intraocular lensOther secondary cataract, right eyeVitreous degeneration , left eyeDry eye syndrome of bilateral lacrimal glands 3 Katrin KRAMER Stacy. [facility] [address]O, [address], [place], [place], [address], [place]. tel:[phone] Joss Tadeo MD.Natalya Gauthier [place].Speciali [place]: [place], [address] [facility] [address], [place], [address]. [phone] ring Provider: Stacy Wilkes OD L, [facility]ast [facility] [address], [place], [address]. tel:[phone] [facility], [address] [place] [address], [place], [place], [address], [place] tel:[phone] SEC [place] Professional Post-Op (chief complaint) Postop check Kimmy Fung. [address] [facility], [address], [place], [place], [address], [place]. tel:[phone] Joss Tadeo MD.Natalya Gauthier MD.Referrin g Provider: Kenton Nelson, [address] [facility] [address], [place], [address]. tel:[phone] Office/outpa tient Visit, [facility], [address] [place] [address] [address], [place], [place], [address], [place] tel:[phone] SEC [place] Professional YAG capsulotomy evaluation (chief complaint) Other secondary cataract, bilateralOth er secondary cataract, left eye 3 Jaye Patotn. [address] [place] [address] [facility] [facility], [address], [place], [place], [address], [place]. tel:[phone] Specialist: [place], [address] [facility] [address], [place], [address]. tel:[phone] alist: Natalya Gauthier MD, [address] [facility] [address], [place], [address]. tel:[phone] ring Provider: Kenton Nelson, [address] [facility] [address], [place], [address]. tel:[phone] [facility], [address] [place] [address] [address], [place], [place], [address], [place] tel:[phone] SEC [place] Professional Complete Exam (chief complaint) PresbyopiaPr esence of intraocular lensType 1 diabetes mellitus without complication sKeratoconju nctivitis sicca of both eyes not due to Sjogren's syndrome Dec-0 3 Katrin OD Stacy. [address] [place], [place] [address]crest [facility], [address], [place], [place], [address], [place]. tel:[phone] Joss Tadeo MD.Referrin g Provider: Kenton Nelson, [address] [facility] [address], [place], [address]. tel:[phone] [facility], [address] [place], [place] [address] [address], [place], [place], [address], [place] tel:[phone] SEC [place] Professional 2 wk IOL exchange PO (10/27/22) (chief complaint) Postop check Nov- 3 Katrin OD Stacy. [facility] [address], [address], [place], [place], [address], [place]. tel:[phone] Joss Tadeo MD.Referrin g Provider: Kenton Nelson, [address] [facility] [address], [place], [address]. tel:[phone] [facility], [address] [place] [address] [address], [place], [place], [address], [place] tel:[phone] [place] Professional 1 week po IOL Exchange OS (10/27/22) (chief complaint) Postop check Nov-0 3 Katrin OD Stacy. [address] [place], [place] [address], [address], [place], [place], [address], [place]. tel:[phone] Joss Tadeo MD.Referneisha damon Provider: Kenton Nelson, [address] [facility] [address], [place], [address]. tel:[phone] [facility], [address] [place] [address] [address], [place], [place], [address], [place] tel:[phone] SEC [place] Professional post op (chief complaint) Postop check Oct- 3 Katrin OD Stacy. [address] [place], [place] [address]crest [employer], [address], [place], [place], [address], [place]. tel:[phone] Joss Tadeo MD.Referneisha damon Provider: Kenton Nelson, [address] [facility] [address], [place], [address]. [phone] [facility], [address] [place] [address] [address], [place], [place], [address], [place] tel:[phone] [facility] No Information 3 Perez Fung. [address] [facility], [facility] [address], [place], [place], [address], [place]. tel:[phone] Referring Provider: Kenton Nelson, [address] [facility] [address], [place], [address]. tel:[phone] [facility], [address] [place] [address] [address], [place], [place], [address], [place] tel:[phone] SEC [place] Professional Post-Op (chief complaint) Postop checkOther mechanical complication of intraocular lens, subsequent encounter b1 3 Perez Fung. [address] [employer] [address], [place], [place], [address], [place]. tel:[phone] Joss Tadeo MD.Referrin g Provider: Kenton Nelson, [address] [employer] [address], [place], [address]. tel:[phone] [facility], [address] [place] [address] [address], [place], [place], [address], [place] tel:[phone] SEC [place] Professional 1 week s/p PCIOL (chief complaint) Postop check b-0 3 Katrin OD Stacy. [address] [place], [place] [address], [address], [place], [place], [address], [place]. tel:[phone] Joss Tadeo MD.Referneisha g Provider: Kenton Nelson, [address] [employer] [address], [place], [address]. tel:[phone] [facility], [address] [place] [address], [place], [place], [address], [place] tel:[phone] SEC [place] Professional post op (chief complaint) Postop check Feb-0 2 3 Katrin OD Stacy. [facility] [address], [address], [place], [place], [address], [place]. tel:[phone] Joss Tadeo MD.Referneisha g Provider: Kenton Nelson, [address] [employer] [address], [place], [address]. tel:[phone] [facility], [address] [place] [address], [place], [place], [address], [place] tel:[phone] [facility] No Information 3 Perez Fung. [address], [place], [place], [address], [place]. tel:[phone] Joss Tadeo MD.Phoebe damon Provider: Kenton Nelson, [address], [place], [address]. tel:[phone] Office/outpa tient Visit, [facility], [address] [place] [address] [address], [place], [place], [address], [place] tel:[phone] [place] Professional Cataract evaluation (chief complaint) Keratoconjun ctivitis sicca of both eyes not due to Sjogren's syndromePres ence of intraocular lensType 1 diabetes mellitus without complication Purnima-related nuclear cataract, right eyeOther secondary cataract, left eye 2 Perez Fung. [address], [address] [place], [address], [place]. tel:[phone] Joss Tadeo MD.Referneisha damon Provider: Kenton Nelson, [address], [place], [address]. tel:[phone] Office/outpa tient Visit, [facility], [address] [place] [address] [address], [place], [place], [address], [place] tel: [phone] SEC [place] Professional WIE (chief complaint) Presence of intraocular lensType 1 diabetes mellitus without complication sKeratoconju nctivitis sicca of both eyes not due to Sjogren's syndromeComb ined forms of age-related cataract, left eye Aug- 2 Peerz Fung. [address], [address], [place], [place], [address], [place]. tel:[phone] Joss Tadeo MD.Phoebe damon Provider: Kenton Nelson, [address], [place], [address]. tel:[phone] Office/outpa tient Visit, [facility], [address] [place] [address], [place], [place], [address], [place] tel:[phone] [place] Professional flashes of light (chief complaint) Presence of intraocular lensCombined forms of age-related cataract, left eyeKeratocon junctivitis sicca of both eyes not due to Sjogren's syndromeType 1 diabetes mellitus without complication s Oct-3 2 Perez Fung. [address] [facility], [address], [place], [place], [address], [place]. tel:[phone] Specialist: [place], [address] [facility] [address], [place], [address]. tel:[phone] ring Provider: Kenton Nelson, [address] [facility] [address], [place], [address]. tel:[phone] Family History Family Member Type Diagnosis Age At Onset Problem Family history of Macular de generation Payers Payer name Insurance type Covered republican ID Authormandaa noemi(s) [facility] [id number] Social History Type Description Quantity Date Captured [...] is NIDDM II followed by Natalya Gauthier TOOL ENGINEER @ [facility]. Pt. states her last HA1C was 7.6. [...]
--- OUTSIDE RECORDS SUMMARY | 2025-02-15 16:47 | XMS_ITS | Encounter Summary ---
Author Organization [facility] Address [address] [place] [address] Care Team Providers Care Seed Packer Name Role Phone Milagromary annMason DO Primary Care Provider [phone] Encounter Details Date Type Department Care Team (Late st Contact Info) Description 03/01/2024 Lab Requisition [facility] - DermPath Lab [address] [facility] [id number] Aris Dunn MD [address] [address] Social History Tobacco Use Types Packs/Day Years Used Date Smoking Tobacco: Never Smokeless Tobacco: Never Comments No Sex and Gender Information Value Date Recorded Sex Assigned at Not on file Legal Sex Female 3:14 PM PEDIATRIC PSYCHOLOGIST Gender Identity Female Sexual Orientation Not on file documented as of this encounter Plan of Treatment Not on file documented as of this encounter Procedures Procedure Name Priority Date/Time Associated Diagnosis Comments DERMATOPATHOLOGY Routine 02/28/2024 12:0 0 AM CDT documented in this encounter Results * DERMATOPATHOLOGY (02/28/2024 12:00 AM CDT) Case Report Dermatopathology Report Case: [id number] Authorizing Provider: Aris Dunn MD Collected: 02/28/2024 12:00 AM Ordering Location: [facility] - Received: 03/01/2024 12:26 [...] determined by the Dermatopathology Laboratory at [facility], directed by Dr. Keo Bee. These tests need not be, and therefore are not, approved by the [place] Food and Drug Administration. The tests are used for clinical purposes. Billing Codes Specimen Charges Stain Charges 70774 1 12:50 PM CDT DERMATOPATHOLOGY LABORATORY Embedded Images 12:50 PM CDT DERMATOPATHOLOGY LABORATORY Pathology/Cytolog y TISSUE SPECIMEN FROM SKIN / Unknown 02/28/2024 03/01/2024 12:26 PM CDT us Aris Dunn MD LAB - PATHOLOGY/CYTOLOGY ORDERAB LES Final Result DERMATOPATHOLOGY LABORATORY [facility] - Department of Dermatology [facility], 3rd Floor [address] [phone] documented in this encounter Visit Diagnoses Not on filedocumented in this encounter Care Teams Seed Packer Relationship Specialty Start Date End Date Mason Mijares DO PCP - General Internal Medicine 11/09/16 documented as of this encounter
--- OUTSIDE RECORDS SUMMARY | 2025-02-15 16:47 | XMS_ITS | Clinical Summary ---
Author Organization [facility] Address [address] [place] [address] Phone Care Team Providers Care Room Service Waiter Name Role Phone PamelatiffanyMason DO Primary Care [...] Insulin Pen Needle (Global Ease Inject Pen Katy) 32G X 4 MM Misc Use to [...] 9 Each 1 5 Active Continuous Glucose Gang Bore Operator (Dexcom G7 Gang Bore Operator) Device CHECK BLOOD GLUCOSE BEFORE EACH MEAL AND AT BEDTIME 1 Each 5 Active insulin lispro (HumaLOG) 100 UNIT/ML Solution PER INSULIN PUMP SETTING, UP TO 50 UNITS PER DAY 50 mL 3 5 Active Insulin Disposable Pump (Omnipod 5 [id number] Pods Gen 5) Misc CHANGE EVERY 3 DAYS 30 Each 9 5 Active Active Problems Problem Noted Date Diagnosed Date 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 02/27/2024 Class 1 obesity due to exces s calories with serious comorbidity and body mass index (BMI) of 31.0 to 31.9 in adult 02/27/2024 Encounters Date Type Department Care Team Description 11/27/2024 Refill [facility] - Endocrinology [facility] [address] [place] [address] Glory Sanabria MD Medication Refill 11/16/2024 Refill [facility] - Endocrinology [facility] [address] [place] [address] Glory Sanabria MD Medication Refill from Last [...] Comments Blood Pressure 118/63 09/13/2024 2:59 PM REGIONAL OWNER OPERATOR TRUCK DRIVER Pulse 66 09/13/2024 2:59 PM REGIONAL OWNER OPERATOR TRUCK DRIVER Temperature 36.3 C (97.3 F) 09/13/2024 2:59 PM REGIONAL OWNER OPERATOR TRUCK DRIVER Respiratory Rate 22 09/13/2024 2:59 PM REGIONAL OWNER OPERATOR TRUCK DRIVER Oxygen Saturation 99% 09/13/2024 2:59 PM REGIONAL OWNER OPERATOR TRUCK DRIVER Inhaled Oxygen Concentration - - Weight 88.5 kg (195 lb) 09/13/2024 2:59 PM REGIONAL OWNER OPERATOR TRUCK DRIVER Height 167.6 cm (5' 6) 05/31/2024 3:07 [...] Cancer Screening (CCS) 1999 HPV/Cotest 1999 Cologuard 2014 Immunochemical Fecal Occult Blood 2014 Zoster Immunization (1 of 2) 2019 SARS-COV-2 Immunization ( season) 2024 11/28/2020, 11/07/2020 Diabetes: Nephropathy Screening 08/06/2024 08/06/2023, 06/25/2022 Diabetes: Hemoglobin A1c 03/13/2025 025, 05/31/2024, 12/27/2023, Additional history exists Influenza Immunization (Season Ended) 2025 Diabetes: Eye Exam 08/27/2025 08/27/2024, 1 10/28/2023, 09/27/2023, Additional history exists Colonoscopy 11/26/2026 11/26/2016 Colorectal Cancer Screening 11/26/2026 Respiratory Syncytial Virus (RSV) Immunization (Adult) (1 - 1-dose 75+ series) 01/09/2044 Human Papillomavirus (HPV) Immunization Aged Out No longer eligible based on patient's age to complete this topic Meningococcal Immunization (ACWY) Aged Out No longer eligible based on patient's age to complete this topic Rotavirus Immunization Aged Out No lo nger eligible based on patient's age to complete this topic Procedures Procedure Name Priority Date/Time Associated Diagnosis Comments POCT GLYCOSYLATED HEMOGLOBIN Routine 09/13/2024 3:06 PM REGIONAL OWNER OPERATOR TRUCK DRIVER Type 1 diabetes mellitus with diabetic polyneuropathy (HCC) DILATED EYE EXAM 08/27/2024 1 2:00 AM REGIONAL OWNER OPERATOR TRUCK DRIVER CMP (COMPREHENSIVE METABOLIC PANEL) STAT 08/06/2023 10:12 AM REGIONAL OWNER OPERATOR TRUCK DRIVER from Last 3 Months or Most Recently Relevant to Health Maintenance Results * (ABNORMAL) POCT GLYCOSYLATED HEMOGLOBIN (09/13/2024 3:06 PM REGIONAL OWNER OPERATOR TRUCK DRIVER) HGB-A1C 7.6(A) 4 - 6 % Blood 09/13/2024 3:06 PM REGIONAL OWNER OPERATOR TRUCK DRIVER us Glory Sanabria MD POINT OF CARE TESTING (MANUAL) F inal Result * DILATED EYE EXAM (08/27/2024 12:00 AM REGIONAL OWNER OPERATOR TRUCK DRIVER) 08/27/2024 us Provider Scan PROCEDURE/MINOR SURGICAL ORDERAB LES Final Result SCAN * (ABNORMAL) CMP (08/06/2023 10:12 AM REGIONAL OWNER OPERATOR TRUCK DRIVER) SODIUM 139 136 - 145 mmol/L 08/06/2023 10:46 AM REGIONAL OWNER OPERATOR TRUCK DRIVER [facility] POTASSIUM 3.8 3.5 - 5.1 mmol/L 08/06/2023 10:46 AM REGIONAL OWNER OPERATOR TRUCK DRIVER [facility] CHLORIDE 106 98 - 107 mmol/L 08/06/2023 10:46 AM [facility] CO2, VENOUS 25 22 - 30 mmol/L 08/06/2023 10:46 AM [facility] ANION GAP 11.8 <18.0 mmol/L 08/06/2023 10:46 AM [facility] GLUCOSE 173(H) 70 - 99 mg/dL 08/06/2023 10:46 AM [facility] BUN 7(L) 10 - 20 mg/dL 08/06/2023 10:46 AM [facility] CREATININE, BLOOD 0.72 0.60 - 1.00 mg/dL 08/06/2023 10:46 AM [facility] BUN/CREATININE RATIO 10(L) 12 - 20 ratio 08/06/2023 10:46 AM [facility] TOTAL PROTEIN 6.6 6.3 - 8.2 g/dL 08/06/2023 10:46 AM [facility] ALBUMIN 4.0 3.5 - 5.0 g/dL 08/06/2023 10:46 AM [facility] A/G RATIO 1.5 1.0 - 2.2 08/06/2023 10:46 AM [facility] CALCIUM 9.1 8.7 - 10.5 mg/dL 08/06/2023 10:46 AM [facility] T BILI 0.6 0.2 - 1.2 mg/dL 08/06/2023 10:46 AM [facility] SGOT (AST) 19 5 - 34 U/L 08/06/2023 10:46 AM [facility] SGPT (ALT) 16 0 - 55 U/L 08/06/2023 10:46 AM [facility] ALKALINE PHOSPHATASE 67 40 - 150 U/L 08/06/2023 10:46 AM [facility] GFR, ESTIMATED >60 >=60 08/06/2023 10:46 AM [facility] Comment: Creatinine Clearance is the preferred criteria for selecting drug dose adjustments in renally impaired patients. The GFR is provided as additional pertinent clinical information. GFR is reported in mL/min/1.73 sq m. Calculation based on the Chronic Kidney Disease Epidemiology Collaboration (CKD- EPI) equation refit without adjustment for race. GFR, EST. >60 >=60 023 10:46 AM REGIONAL OWNER OPERATOR TRUCK DRIVER [facility] GFR, EST. NONAFRICAN >60 >=60 08/06/2023 10:46 AM REGIONAL OWNER OPERATOR TRUCK DRIVER [facility] Blood Venipuncture / Unknown 08/06/2023 10:12 AM REGIONAL OWNER OPERATOR TRUCK DRIVER 08/06/2023 10:24 AM REGIONAL OWNER OPERATOR TRUCK DRIVER us Santos Madrigal MD CHEMISTRY ORDERABLES F inal Result [facility] [address] [place] [address] from Last 3 Months or Most Recently Relevant to Health Maintenance Insurance [facility] Care Teams Room Service Waiter Relationship Specialty Start Date End Date Mason Mijares DO [facility] [place] [address] PCP - General Internal Medicine 06/25/22 Glory Sanabria MD [address] [address] Consulting Physician Endocrinology 12/19/23
--- OUTSIDE RECORDS SUMMARY | 2025-02-15 16:47 | XMS_ITS | Data Portability ---
Author Organization [facility], Main Office Address [address] [facility] [address] [facility] [place] [address] Assessment No assessment recorded. Plan of Treatment [...] By Organization Details Last Modified Time 02/28/2024 [id number] Informed consent . betadine prep. 1% lidocaine with epinephrine. Shave biopsy from: left eg posterolateral AlCL3 hemostasis. Aquaphor, bandage and wound care given. Will call pt with path. [email or web address] Not available 02/28/2024 10:31:53 Reason for Referral None Reported. 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 [...] SNOMED-CT Code Diagnosis ICD10 Code Diagnosis Note [id number] Aris Dunn MD Main Office [address] [facility] [address] [place] [address] 02/28/2024 09:27:42 02/28/2024 10:32:20 Neoplasm of uncertain behavior of skin 53471186 D48.5 Health Concerns Section Related Observation LastModified by Organization Detai ls LastModified Time None Recorded Concern Status LastModified by Organization Details LastModified Time None Recorded Advance Directives Directive None Recorded Payers Insurance Date Sequence Insurance Name Policy Number Policy Weaver Covered Member ID Weaver Member ID Guarantor Name 02/28/2024 1 [employer] - ALLIED BENEFITS - OPEN ACCESS [id number] Lyudmila Field [id number] Lyudmila [place] 02/28/2024 1 [employer] (POS II) [id number] Lyudmila Freyper [id number] Lyudmila [place] Notes Date Note Type Note Provider Name and Address Organization Details Recorded Time 02/28/2024 text/html Bx of papule of the l leg posterior lateralr/o dermatofibroma, nevus BCC Aris Dunn MD [address] [facility] [address], [place], [address], [facility] 02/28/2024 10:32:09 OBGyn Episode No OBEpisode recorded.
--- OUTSIDE RECORDS SUMMARY | 2025-02-15 16:47 | XMS_ITS | Continuity of Care Document ---
Author Organization [facility] Address [address] [place] [address] [place] [address] Phone Care Team Providers Care Waist Cutter Name Role Phone [facility] Unavailable Unavail able Procedures Procedure Date Corneal Topography Advance Directives Directive Yes / No Effective Date File Name No Information Encounters Encounter Description Practice Location Reason(s) For Visit Diagnoses Date Provider Providers Copied on Encounter [facility], [address], [place], [place], [id number], [place] tel:[phone] [facility] No Information [facility] . [address], [place], [id number], [place]. tel:[phone] Referring Provider: Joe Duenas OD F, [address] [facility] [address], [place], [address]. tel:[phone] Family History Family Member Type Diagnosis Age [...]
--- OUTSIDE RECORDS SUMMARY | 2025-02-15 16:47 | XMS_ITS | Referral Summary ---
Author Organization [facility] [address] Address [address] [place] [address] Care Team Providers Care Rubber Stamps And Dies Supervisor Name Role Phone Mason Mijares DO Primary Care Provider [phone] Elvin Mcduffie MD Unavailable [phone] Allergies Active Allergy Reactions Criticality Noted Date Comments Latex Rash Medium 11/09/2016 Mushroom Anaphylaxis,Vomiting High 03/02/2020 Silicone Rash Medium 11/09/2016 Blidctt-Jpi-Wkq Reductase Inhibitors Other (See comments) High 09/02/2022 [...] 09/02/2022 Assessment & Plan (09/02/2022 4:10 PM CUSTOMS COMPLIANCE MANAGER): Lower CR to 10 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 Improving with [...] pump Assessment & Plan (11/10/2021 10:07 AM CUSTOMS COMPLIANCE MANAGER): Hba1c was Lab Results Component Value [...] 03/18/2011 Assessment & Plan (09/02/2022 4:12 PM CUSTOMS COMPLIANCE MANAGER): Chronic problem, improving. 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 Not on file Not on file Last Filed Vital Signs Vital Sign Reading Time Taken Comments Blood Pressure 103/70 10/24/2023 10:07 AM CUSTOMS COMPLIANCE MANAGER Pulse 81 10/24/2023 10:07 AM CUSTOMS COMPLIANCE MANAGER Temperature 36.4 C (97.6 F) 10/24/2023 10:07 AM CUSTOMS COMPLIANCE MANAGER Respiratory Rate 18 08/19/2023 9:05 PM CUSTOMS COMPLIANCE MANAGER Oxygen Saturation 98% 10/24/2023 10:07 AM CUSTOMS COMPLIANCE MANAGER Inhaled Oxygen Concentration - - Weight 87.4 kg (192 lb 9.6 oz) 10/24/2023 10:07 AM CUSTOMS COMPLIANCE MANAGER Height 167.6 cm (5' 6) 10/24/2023 10:07 AM CUSTOMS COMPLIANCE MANAGER Body Mass Index 31.09 10/24/2023 10:07 AM CUSTOMS COMPLIANCE MANAGER Plan of Treatment Not on file Medical Devices Implanted Type Area Terrazzo Supervisor Device Identifier Shelf Expiration Date Model / Serial / Lot [employer]/C R Bard [id number] Ventralex St Sepra Sorbaflex 2.5in [place] [employer] Bioresorbable - Snone - [id number] Implanted:Qty: 1 on 12/09/2020 by Elvin Mcduffie MD at [facility] Mesh Right: Abdomen [employer]/C R Bard 05/02/2022 [id number] / NONE / [id number] Procedures Procedure Name Priority Date/Time Associated Diagnosis Comments HM DIABETES EYE EXAM Routine 08/23/2023 8:14 AM CUSTOMS COMPLIANCE MANAGER EGFR STAT 08/19/2023 7:02 PM CUSTOMS COMPLIANCE MANAGER POCT HEMOGLOBIN A1C Routine 09/02/2022 3 :21 PM CUSTOMS COMPLIANCE MANAGER Type 1 diabetes mellitus with hyperglycemia (HCC) LIPID PANEL Routine 07/14/2022 12:20 PM CUSTOMS COMPLIANCE MANAGER Type 1 diabetes mellitus with hyperglycemia (HCC) ALBUMIN CREATININE RATIO, URINE Routine 03/16/2022 8:13 AM CDT Type 1 diabetes mellitus with hyperglycemia (HCC) TSH Routine 03/16/2022 8:13 AM CDT Type 1 diabetes mellitus with hyperglycemia (HCC) from Last 3 Months or Most Recently Relevant to Health Maintenance Results * DIABETES EYE EXAM (08/23/2023 8:14 AM CUSTOMS COMPLIANCE MANAGER) Historical Provider HEALTH MAINTENANCE Final Result * eGFR (08/19/2023 7:02 PM CUSTOMS COMPLIANCE MANAGER) eGFR >90 >=60 mL/min/1. 73 m2 [...] last reviewed 2021. Blood 08/19/2023 7:02 PM CUSTOMS COMPLIANCE MANAGER 08/19/2023 7:19 PM CUSTOMS COMPLIANCE MANAGER Chano Cason MD LAB BLOOD ORDERABLES Nu l Result [facility] One [facility] Department [place] [address] * (ABNORMAL) POCT hemoglobin A1c (09/02/2022 3:21 PM CUSTOMS COMPLIANCE MANAGER) Hemoglobin A1C, POC 7.2 Blood 09/02/2022 3:21 PM CUSTOMS COMPLIANCE MANAGER Missy PARSON POINT OF CARE TEST MILDRED KRUSE Final Result * Lipid panel (07/14/2022 12:20 PM CUSTOMS COMPLIANCE MANAGER) Cholesterol 189 30 - 199 mg/dL [...] [facility] Blood 07/14/2022 12:2 0 PM CUSTOMS COMPLIANCE MANAGER 07/14/2022 6:59 PM CUSTOMS COMPLIANCE MANAGER Narrative [facility] - 07/14/2022 7:54 PM CUSTOMS COMPLIANCE MANAGER These lab test should be done fasting. This means do not eat or drink for at least 12 hours prior to getting your blood drawn. us Joss Tadeo MD LAB BLOOD ORDERABLES Final Resul t [facility] [address] Department [place] [address] * Albumin Creatinine Ratio, Urine [...] ORDERABLES Final Resul t Performing Organization Address [facility] Co de Phone Number [facility] [address] [place] [address] * TSH (03/16/2022 8:13 AM CDT) Thyroid Stimulating Hormone 2.77 0.30 - 4.20 mcIUnit/mL [facility] Blood 03/16/2022 8:13 AM CDT 03/16/2022 2:38 PM CDT us Joss Tadeo MD LAB BLOOD ORDERABLES Final Resul t Performing Organization Address [facility] Co de Phone Number [facility] [address] [place] [address] from Last 3 Months or Most Recently Relevant to Health Maintenance Insurance [facility] Advance Directives For more information, please contact: [phone] Documents on File Type Date Recorded Patient Faith Doctor Expl anation ADVANCE DIRECTIVE 12/13/2020 11:04 PM ADVANCE DIRECTIVE 12/09/2020 9:09 AM Care Teams Rubber Stamps And Dies Supervisor Relationship Specialty Start Date End Date Mason Mijares DO PCP - General 10/21/14 Elvin Mcduffie MD Consulting Physician General Surgery 12/09/20
--- OUTSIDE RECORDS SUMMARY | 2025-02-15 16:47 | XMS_ITS | Clinical Summary ---
Author Organization [facility] [address] Address [address] [place] [address] Care Team Providers Care Exhibits Coordinator Name Role Phone Mason Mijares DO Primary Care Provider [phone] Elvin Mcduffie MD Unavailable [phone] Allergies Active Allergy Reactions Criticality Noted Date Comments Latex Rash Medium 11/09/2016 Mushroom Anaphylaxis,Vomiting High 03/02/2020 Silicone Rash Medium 11/09/2016 Mvobwry-Ccv-Hoq Reductase Inhibitors Other (See comments) High 09/02/2022 [...] 09/02/2022 Assessment & Plan (09/02/2022 4:10 PM PROPOSAL COORDINATOR): Lower CR to 10 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 Improving with lifestyle [...] pump Assessment & Plan (11/10/2021 10:07 AM PROPOSAL COORDINATOR): Hba1c was Lab Results Component Value Date [...] 03/18/2011 Assessment & Plan (09/02/2022 4:12 PM PROPOSAL COORDINATOR): Chronic problem, improving. 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 Not on file Not on file Obstetrics History Last Filed Vital Signs Vital Sign Reading Time Taken Comments Blood Pressure 103/70 10/24/2023 10:07 AM PROPOSAL COORDINATOR Pulse 81 10/24/2023 10:07 AM PROPOSAL COORDINATOR Temperature 36.4 C (97.6 F) 10/24/2023 10:07 AM PROPOSAL COORDINATOR Respiratory Rate 18 08/19/2023 9:05 PM PROPOSAL COORDINATOR Oxygen Saturation 98% 10/24/2023 10:07 AM PROPOSAL COORDINATOR Inhaled Oxygen Concentration - - Weight 87.4 kg (192 lb 9.6 oz) 10/24/2023 10:07 AM PROPOSAL COORDINATOR Height 167.6 cm (5' 6) 10/24/2023 10:07 AM PROPOSAL COORDINATOR Body Mass Index 31.09 10/24/2023 10:07 AM PROPOSAL COORDINATOR Plan of Treatment Health Maintenance Due Date [...] Ended) 2025 Medical Devices Implanted Type Area Social Media Content Specialist Device Identifier Shelf Expiration Date Model / Serial / Lot [employer] Inc/C R Bard [id number] Ventralex St Sepra Sorbaflex 2.5in [facility] Bioresorbable - Snone - [id number] Implanted:Qty: 1 on 12/09/2020 by Elvin Mcduffie MD at [facility] Mesh Right: Abdomen [employer]/C R Bard 05/02/2022 [id number] / NONE / [id number] Procedures Procedure Name Priority Date/Time Associated Diagnosis Comments DIABETES EYE EXAM Routine 08/23/2023 8:14 AM PROPOSAL COORDINATOR EGFR STAT 08/19/2023 7:02 PM PROPOSAL COORDINATOR POCT HEMOGLOBIN A1C Routine 09/02/2022 3 :21 PM PROPOSAL COORDINATOR Type 1 diabetes mellitus with hyperglycemia (HCC) LIPID PANEL Routine 07/14/2022 12:20 PM PROPOSAL COORDINATOR Type 1 diabetes mellitus with hyperglycemia (HCC) ALBUMIN CREATININE RATIO, URINE Routine 03/16/2022 8:13 AM CDT Type 1 diabetes mellitus with hyperglycemia (HCC) TSH Routine 03/16/2022 8:13 AM CDT Type 1 diabetes mellitus with hyperglycemia (HCC) from Last 3 Months or Most Recently Relevant to Health Maintenance Results * HM DIABETES EYE EXAM (08/23/2023 8:14 AM PROPOSAL COORDINATOR) Historical Provider HEALTH MAINTENANCE Final Result * eGFR (08/19/2023 7:02 PM PROPOSAL COORDINATOR) eGFR >90 >=60 mL/min/1. [address] [facility] Comment: Interpretive Data Reference Interval Normal [...] last reviewed 2021. Blood 08/19/2023 7:02 PM PROPOSAL COORDINATOR 08/19/2023 7:19 PM PROPOSAL COORDINATOR Chano Cason MD LAB BLOOD ORDERABLES Nu mora Result [facility] One [facility] Department [place] [address] * (ABNORMAL) POCT hemoglobin A1c (09/02/2022 3:21 PM PROPOSAL COORDINATOR) Hemoglobin A1C, POC 7.2 Blood 09/02/2022 3:21 PM PROPOSAL COORDINATOR us Missy PARSON POINT OF CARE TEST ORDMichelle KRUSE Final Result * Lipid panel (07/14/2022 12:20 PM PROPOSAL COORDINATOR) Cholesterol 189 30 - 199 mg/dL [facility] [...] last revised on 2018. Chol/HDL ratio 3 [facility] Blood 07/14/2022 12:2 0 PM PROPOSAL COORDINATOR 07/14/2022 6:59 PM PROPOSAL COORDINATOR Narrative [facility] - 07/14/2022 7:54 PM PROPOSAL COORDINATOR These lab test should be done fasting. This means do not eat or drink for at least 12 hours prior to getting your blood drawn. us Joss Tadeo MD LAB BLOOD ORDERABLES Final Resul t Performing Organization Address [facility] Co de Phone Number [facility] [address] [place] [address] * Albumin Creatinine Ratio, Urine (03/16/2022 8:13 AM CDT) Albumin Ur 22.8 mg/L [facility] Comment: Interpretive Data No reference range established. Current interpretive data was last revised 2019. Creatinine Ur 280.1 mg/dL [facility] Comment: Interpretive Data No reference range established. Current interpretive data was last revised 2019. Albumin Creatinine Ratio, Ur 8 1 - 29 mg/g [facility] Urine 03/16/2022 8:13 AM CDT 03/16/2022 2:38 PM CDT us Joss Tadeo MD LAB URINE ORDERABLES Final Resul t Performing Organization Address [facility] de Phone Number [facility] [address] [place] [address] * TSH (03/16/2022 8:13 AM CDT) Thyroid Stimulating Hormone 2.77 0.30 - 4.20 mcIUnit/mL [facility] Blood 03/16/2022 8:13 AM CDT 03/16/2022 2:38 PM CDT us Joss Tadeo MD LAB BLOOD ORDERABLES Final Resul t Performing Organization Address [facility] Co de Phone Number [facility] [address] [place] [address] from Last 3 Months or Most Recently Relevant to Health Maintenance [facility] Advance Directives For more information, please contact: [phone] Documents on File Type Date Recorded Patient Mover Helper Expl anation ADVANCE DIRECTIVE 12/13/2020 11:04 PM ADVANCE DIRECTIVE 12/09/2020 9:09 AM Care Teams Exhibits Coordinator Relationship Specialty Start Date End Date Mason Mijares DO PCP - General 10/21/14 Elvin Mcduffie MD Consulting Physician General Surgery 12/09/20
[2025-02-15 16:58] VITALS: BP 134/102; PULSE 95; RESP 18; TEMP 36.4; O2SAT 97
--- NOTE | 2025-02-15 18:42 | ECG_ITS ---
Test Date: 2025-02-15 19:33:11 Measurements Intervals [place] Rate: 73 P: 50 ME: 201 QRS: -5 QRSD: 77 T: 44 QT: 363 QTc: 400 Interpretive Statements SINUS RHYTHM POSSIBLE LEFT ATRIAL ENLARGEMENT BORDERLINE AV CONDUCTION DELAY LOW QRS VOLTAGE IN PRECORDIAL LEADS BORDERLINE ST-T WAVE ABNORMALITY- ANT/HIGH LAT LEADS BORDERLINE ECG Compared to ECG 02/04/2025 21:52:26 NO SIGNIFICANT CHANGE Electronically Signed On 02-15-2025 19:58:52 CDT by Domingo Lester D.O.
[2025-02-15 18:53] LABS: Basophils Percent Auto 0.9 % (0.2-1.2); Eosinophils Absolute Auto 0.1 K/mm3 (0-0.3); Eosinophils Percent Auto 1.3 % (0-4.4); Hematocrit 42.9 % (37.0-47.0); Hemoglobin 14.7 g/dL (12.0-15.0); Immature Granulocyte Absolute 0.01 K/mm3 (0.00-0.031); Immature Granulocyte Percent A 0.2 % (0-0.5); Lymphocytes Absolute Auto 1.58 K/mm3 (0.9-3.2); Lymphocytes Percent Auto 34.2 % (18.3-44.2); Mean Corpuscular HGB Conc 34.3 g/dl (32-36); Mean Corpuscular Hemoglobin 30.1 pg (26-34); Mean Corpuscular Volume 87.7 fl (80-100); Mean Platelet Volume 9.9 fl (7.4-10.4); Monocytes Absolute Auto 0.3 K/mm3 (0.1-0.6); Monocytes Percent Auto 6.9 % (2.6-8.5); Neutrophils Absolute Auto 2.6 K/mm3 (1.3-6.7); Neutrophils Percent Auto 56.5 % (45.5-73.1); Platelet Count Result 355 k/mm3 (150-375); Red Blood Count 4.89 M/mm3 (4.2-5.4); Red Cell Distribution Width 12.5 % (11.5-14.5); White Blood Count 4.6 K/mm3 (4.5-10.0)
--- NOTE | 2025-02-15 18:55 | ED.UPPEXIN ---
HPI - Extremity Injury (Upper) General Chief Complaint: Extremity Injury, Upper Stated Complaint: Pain Left Arm Pit, Requesting MRI Time Seen by Provider: 02/15/25 18:26 Source: patient Mode of arrival: ambulatory Limitations: no limitations History of Present Illness HPI narrative: This is a 55 year old female that presents to the ER for left arm pain. Reports this has been ongoing intermittently over the last week and a half. Reports a sharp, stabbing pain that begins in the left armpit, becomes squeezing and radiates into the arm. She also endorses she has been having trouble with headaches, vertigo over the last several months. She is scheduled for an MRI of her brain for further evaluation of this. Denies vision changes, vomiting, focal numbness, weakness. Related Data Home Medications ?Medication ?Instructions ?Recorded ?Confirmed ?Last Taken ?Type blood sugar diagnostic (OneTouch #10 ea 07/30/19 02/11/25 Unknown History Verio test strips) pen needle, diabetic 31 gauge x #30 ea 05/27/20 02/11/25 Unknown History / (BD Ultra-Fine Mini Pen Needle) insulin aspart U-100 100 unit/mL See Rx Instructions .Route .COMPLEX 07/23/22 02/11/25 Unknown History subcutaneous solution (Novolog U-100 Insulin aspart) perfluorohexyloctane (PF) 100 % 1 drp LEFT EYE Q4H 05/28/24 02/11/25 Unknown History eye drops (Miebo (PF)) blood-glucose sensor (Dexcom G7 #1 ea 01/21/25 02/11/25 Unknown History Sensor device) cyclosporine 0.05 % eye drops in a drp EACH EYE 01/21/25 02/11/25 Unknown History dropperette (Restasis) insulin pump cart,auto,BT,G6/7 #5 ea 01/21/25 02/11/25 Unknown History (Omnipod 5 G6-G7 Pods (Gen 5) subcutaneous cartridge) Allergies Allergy/AdvReac Type Severity Reaction Status Date / Time latex Allergy Severe Rash Verified 02/15/25 17:02 Penicillins Allergy Unknown Other Verified 02/15/25 17:02 venom-wasp Allergy Unknown SWELLING, Verified 02/15/25 17:02 THROAT SWELLING bee venom protein (honey Allergy THROAT Verified 02/15/25 17:02 bee) (bees) SWELLING mushroom Allergy THROAT Verified 02/15/25 17:02 SWELLING Statins Allergy Intermediate Unknown Uncoded 02/15/25 17:02 Review of Systems Review of Systems: All systems reviewed & are unremarkable except as noted in HPI and below PMFSH Past Medical History Medical History Subluxation of lens, left eye Right upper quadrant pain Anxiety COVID-19 Varicose veins of both lower extremities Asthma Bronchitis GERD (gastroesophageal reflux disease) Surgical History Surgical History History of endometrial ablation History of cataract surgery Right eye 02/2022 History of hernia repair H/O dilation and curettage Status post cervical polyp removal H/O shoulder surgery Right and left H/O foot surgery Left foot bone replacement History of repair of ACL H/O adenoidectomy History of tonsillectomy Family History Family History Mother Family history of thyroid disease Father Family history of blood dyscrasia Grandparent Cerebrovascular accident Other Hypertension Osteoarthritis Social History Social History Smoking status: Never smoker Second hand tobacco smoke exposure: No Alcohol intake: current Alcohol use details: rarely Substance use: never Substance use type: does not use Lack of Transportation: No Lack of Food: Never True Current Housing: I Have Housing Concerned About Future Housing: No Difficulty Paying Gas/Electric Bills: No Difficulty Paying for Meds: No Currently Unemployed: No Education: Master's Degree or Higher Difficulty w/ Childcare or Family Care: No Living arrangements: with family Occupation/Education: occupation 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 HEAD: Normocephalic, atraumatic. EYES: PERRLA and EOMI. ENT: Nares clear, no rhinorrhea or epistaxis. Mucous membranes moist. Oropharynx without tonsillar hypertrophy exudate or other lesions. Bilateral TMs pearly fenton non-bulging NECK: Supple. No adenopathy or masses. CHEST: Clear to auscultation. No respiratory distress. No wheezes rales or rhonchi HEART: Regular rate and rhythm. No murmur heard. Normal peripheral pulses. ABDOMEN: Soft, nontender, nondistended, normal active bowel sounds. EXTREMITIES: Normal range of motion. No edema or erythema. Strength equal in bilateral upper and lower extremities (5/5) SKIN: Warm, dry, no rash. NEURO: No focal deficits. Alert and oriented x3. Cranial nerves 2-12 grossly intact PSYCH: Normal mood and affect Course Course Emergency Course: patient updated on her workup and agrees with plan of care Vital Signs Vital signs: Vital Signs Temperature 97.5 F L 02/15/25 16:58 Pulse Rate 95 02/15/25 16:58 Respiratory Rate 18 02/15/25 16:58 Blood Pressure 134/102 H 02/15/25 16:58 Pulse Oximetry 97 02/15/25 16:58 Oxygen Delivery Room Air 02/15/25 16:58 Temperature 97.5 F L 02/15/25 16:58 Pulse Rate 78 02/16/25 00:17 Respiratory Rate 17 02/16/25 00:17 Blood Pressure 124/75 02/16/25 00:17 Pulse Oximetry 99 02/16/25 00:17 Oxygen Delivery Room Air 02/15/25 16:58 MDM - Extremity Injury (Upper) MDM Narrative Medical decision making narrative: Patient presents to the emergency department with complaints of left arm pain, dizziness. She is neurologically intact. Her vitals are stable. Cbc metabolic panel without concerning findings. EKG without acute ST changes, baseline troponin is negative. Left upper extremity venous Doppler without evidence of DVT. Chest x-ray without acute cardiopulmonary abnormality. CT brain and carotid normal. Patient is currently following with her PCP for these symptoms. Is scheduled for an MRI soon. Instructed to have continued follow-up with her PCP. She was given warnings to return to the ER Differential Diagnosis Differential diagnosis: Likely other (vertigo, CVA, BPPV, migraine, tension headache, DVT, radiculopathy) Lab Data Attestation: I reviewed the patient's lab results. 02/15/25 18:47 02/15/25 18:47 Labs: Lab Results 02/15/25 Range/Units 18:47 WBC 4.6 (4.5-10.0) K/mm3 RBC 4.89 (4.2-5.4) M/mm3 Hgb 14.7 (12.0-15.0) g/dL Hct 42.9 (37.0-47.0) % MCV 87.7 (80-100) fl MCH 30.1 (26-34) pg MCHC 34.3 (32-36) g/dl RDW 12.5 (11.5-14.5) % Plt Count 355 (150-375) k/mm3 MPV 9.9 (7.4-10.4) fl Immature Gran % (Auto) 0.2 (0-0.5) % Neut % (Auto) 56.5 (45.5-73.1) % Lymph % (Auto) 34.2 (18.3-44.2) % Ransom % (Auto) 6.9 (2.6-8.5) % Eos % (Auto) 1.3 (0-4.4) % Baso % (Auto) 0.9 (0.2-1.2) % Lymph # (Auto) 1.58 (0.9-3.2) K/mm3 Ransom # (Auto) 0.3 (0.1-0.6) K/mm3 Eos # (Auto) 0.1 (0-0.3) K/mm3 Baso # (Auto) 0.0 (0.0-0.1) K/mm3 Abs Immat Gran (auto) 0.01 (0.00-0.031) K/mm3 Absolute Neuts (auto) 2.6 (1.3-6.7) K/mm3 Absolute Nucleated RBC 0.000 (0.0-0.012) K/mm3 Nucleated RBC % 0.0 (0.0-0.2) % Sodium 141 (137-145) mmol/L Potassium 3.8 (3.4-5.0) mmol/L Chloride 107 (98-107) mmol/L Carbon Dioxide 27 (22-30) mmol/L Anion Gap 7 (4-12) mmol/L BUN 15 (7-17) mg/dL Creatinine 0.69 L (0.7-1.0) mg/dL Estim Creat Clear Calc 87 ml/min Estimated GFR > 60 (59 - ) Glucose 93 (65-110) mg/dL Calcium 10.0 (8.4-10.2) mg/dL Total Bilirubin 0.5 (0.2-1.3) mg/dL AST 30 (14-36) U/L ALT 21 (6-35) U/L Alkaline Phosphatase 62 (38-126) U/L Troponin I < 0.012 (0.000-0.034) ng/mL Total Protein 7.8 (6.3-8.2) g/dL Albumin 4.6 (3.5-5.1) g/dL Imaging Data Radiologist's impression: ITS Impressions Venous Doppler Study 02/15/25 19:37 IMPRESSION: Negative left upper extremity venous US. No deep vein thrombosis. Chest X-Ray 02/15/25 19:44 IMPRESSION: No acute cardiopulmonary pathology. ITS Impressions Venous Doppler Study 02/15/25 19:37 IMPRESSION: Negative left upper extremity venous US. No deep vein thrombosis. Chest X-Ray 02/15/25 19:44 IMPRESSION: No acute cardiopulmonary pathology. Head/Neck CTA 02/15/25 23:18 IMPRESSION: 1. Normal CTA head and neck. Percent stenosis per NASCET criteria is 0%. ECG Data EKG #1: ECG completion date: 02/15/25 EKG Interpretation: normal rate, sinus rhythm, no ST changes and normal QT Critical Care Time Critical Care Time Critical Care Time: No Discharge Plan Discharge Clinical Impression: Arm pain, left, Dizziness Patient Disposition: Home Condition: Stable Instructions: Dizziness (ED), Arm Pain (ED) Additional Instructions: Return to the emergency department if you experience fever, chest pain, shortness of breath, abdominal pain with nausea and vomiting, weakness, numbness, or any other symptoms that are concerning to you. Your blood work and imaging are reassuring today Follow up with your primary care doctor for further evaluation/management Patient Language: Libyan Prescriptions: No Action insulin aspart U-100 [Novolog U-100 Insulin aspart] 100 unit/mL solution See Rx Instructions .ROUTE .COMPLEX Rx Instructions: sliding scale Miebo (PF) 100 % drops 1 drp LEFT EYE Q4H (DME) pen needle, diabetic [BD Ultra-Fine Mini Pen Needle] 31 gauge x 3/16 needle See Rx Instructions .ROUTE .MEDSUPPLY Qty: 30 Rx Instructions: Use with insulin injections 5-6 times daily (DME) Dexcom G6 Transmitter Device See Rx Instructions .ROUTE .MEDSUPPLY Qty: 1 3RF Rx Instructions: replace every 90 days cyclosporine [Restasis] 0.05 % dropperette EACH EYE (DME) Dexcom G7 Sensor Device See Rx Instructions .ROUTE .MEDSUPPLY Qty: 1 Rx Instructions: As directed (DME) Omnipod 5 G6-G7 Pods (Gen 5) Cartridge See Rx Instructions .ROUTE .MEDSUPPLY Qty: 5 Rx Instructions: As directed ([facility]) OneTouch Verio test strips Strip See Rx Instructions .ROUTE .MEDSUPPLY Qty: 10 Rx Instructions: Use to check BS 4-6 times daily albuterol sulfate [ProAir HFA] 90 mcg/actuation HFA aerosol inhaler 1 inh INHALATION DIRECTED PRN (Reason: Shortness Of Breath Or Wheezing) Qty: 8.5 3RF (DME) Dexcom G6 Hr Administrator Misc See Rx Instructions .ROUTE .MEDSUPPLY Qty: 0 0RF Rx Instructions: She is using her Android phone as the inspector open die. diphenhydramine HCl [Allergy (diphenhydramine)] 25 mg capsule 25 mg PO TID PRN (Reason: allergy symptoms) Qty: 20 0RF epinephrine [EpiPen] 0.3 mg/0.3 mL auto-injector 0.3 mg IM Q5-15M PRN (Reason: anaphylaxis) Qty: 1 0RF Rx Instructions: do not exceed 3 doses per episode Follow-up/Referrals: Mason Mijares, DO [Primary Care Provider] -
[2025-02-15 19:03] LABS: Alanine Aminotransferase 21 U/L (6-35); Albumin Level 4.6 g/dL (3.5-5.1); Alkaline Phosphatase 62 U/L (38-126); Anion Gap 7 mmol/L (4-12); Aspartate Amino Transferase 30 U/L (14-36); Bilirubin,Total 0.5 mg/dL (0.2-1.3); Blood Urea Nitrogen 15 mg/dL (7-17); Carbon Dioxide 27 mmol/L (22-30); Chloride 107 mmol/L (98-107); Estimated CRCL calculation 87 ml/min; Estimated Glomerular Filt Rate > 60; Glucose 93 mg/dL (65-110); Potassium 3.8 mmol/L (3.4-5.0); Sodium 141 mmol/L (137-145); Total Protein 7.8 g/dL (6.3-8.2)
[2025-02-15 19:14] LABS: Troponin I < 0.012 ng/mL (0.000-0.034)
--- OUTSIDE RECORDS SUMMARY | 2025-02-15 19:24 | XMS_ITS | Encounter Summary ---
Author Organization [facility] Address [address] [place] [address] Phone Care Team Providers Care Service Cashier Name Role Phone MilagrosharifaMason allenian Primary Care Provider Glory Sanabria MD Unavailable Reason for Visit * Reason Comments Medication Refill Encounter Details Date Type Department Care Team (Late st Contact Info) Description 01/23/2024 Refill [facility] - Endocrinology - [place] [address] [place] [address] Glory Sanabria MD [address] [address] Medication Refill Social History Tobacco [...] on filedocumented in this encounter Care Teams Service Cashier Relationship Specialty Start Date End Date Mason Mijares DO [address] [facility] [address] PCP - General Internal Medicine 06/25/22 Glory Sanabria MD [address] [id number] Consulting Physician Endocrinology 12/19/23 documented as of this encounter
--- OUTSIDE RECORDS SUMMARY | 2025-02-15 19:25 | XMS_ITS | Clinical Summary ---
Author Organization [facility] Address [address] [place] [address] Phone Care Team Providers Care Funnel Coater Name Role Phone PamelatiffanyMason DO Primary Care [...] Insulin Pen Needle (Global Ease Inject Pen [place]) 32G X 4 MM Misc Use to [...] 9 Each 1 5 Active Continuous Glucose Citrus Fruit Packer (Dexcom G7 Citrus Fruit Packer) Device CHECK BLOOD GLUCOSE BEFORE EACH MEAL AND AT BEDTIME 1 Each 5 Active insulin lispro (HumaLOG) 100 UNIT/ML Solution PER INSULIN PUMP SETTING, UP TO 50 UNITS PER DAY 50 mL 3 5 Active Insulin Disposable Pump (Omnipod 5 [id number] Pods Gen 5) Misc CHANGE EVERY 3 DAYS 30 Each 9 5 Active Active Problems Problem Noted Date Diagnosed Date 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 02/27/2024 Class 1 obesity due to exces s calories with serious comorbidity and body mass index (BMI) of 31.0 to 31.9 in adult 02/27/2024 Encounters Date Type Department Care Team Description 11/27/2024 Refill [facility] - Endocrinology [facility] [address] [place] [address] Glory Sanabria MD Medication Refill 11/16/2024 Refill [facility] - Endocrinology [facility] [address] [place] [address] Glory Sanabria MD Medication Refill from Last [...] Comments Blood Pressure 118/63 09/13/2024 2:59 PM [facility]ES[facility] Pulse 66 09/13/2024 2:59 PM [facility]ES[facility] Temperature 36.3 C (97.3 F) 09/13/2024 2:59 PM [facility] Respiratory Rate 22 09/13/2024 2:59 PM [facility] Oxygen Saturation 99% 09/13/2024 2:59 PM [facility] Inhaled Oxygen Concentration - - Weight 88.5 kg (195 lb) 09/13/2024 2:59 PM [facility] Height 167.6 cm (5' 6) 05/31/2024 3:07 [...] POCT GLYCOSYLATED HEMOGLOBIN Routine 09/13/2024 3:06 PM [facility]ORSES[facility]ER Type 1 diabetes mellitus with diabetic polyneuropathy (HCC) DILATED EYE EXAM 08/27/2024 1 2:00 AM [facility]ES[facility] CMP (COMPREHENSIVE METABOLIC PANEL) STAT 08/06/2023 10:12 AM HORSES[facility]ER from Last 3 Months or Most Recently Relevant to Health Maintenance Results * (ABNORMAL) POCT GLYCOSYLATED HEMOGLOBIN (09/13/2024 3:06 PM HORSES[facility]ER) HGB-A1C 7.6(A) 4 - 6 % Blood 09/13/2024 3:06 PM [facility] us Glory Sanabria MD POINT OF CARE TESTING (MANUAL) F inal Result * DILATED EYE EXAM (08/27/2024 12:00 AM HORSES[facility]ER) 08/27/2024 us Provider Scan PROCEDURE/MINOR SURGICAL ORDERAB LES Final Result SCAN * (ABNORMAL) CMP (08/06/2023 10:12 AM HORSES[facility]ER) SODIUM 139 136 - 145 mmol/L 08/06/2023 10:46 AM [facility] POTASSIUM 3.8 3.5 - 5.1 mmol/L 08/06/2023 10:46 AM [facility] CHLORIDE 106 98 - 107 mmol/L 08/06/2023 10:46 AM [facility] CO2, VENOUS 25 22 - 30 mmol/L 08/06/2023 10:46 AM [facility] ANION GAP 11.8 <18.0 mmol/L 08/06/2023 10:46 AM [facility] GLUCOSE 173(H) 70 - 99 mg/dL 08/06/2023 10:46 AM [facility] BUN 7(L) 10 - 20 mg/dL 08/06/2023 10:46 AM [facility] CREATININE, BLOOD 0.72 0.60 - 1.00 mg/dL 08/06/2023 10:46 AM [facility] BUN/CREATININE RATIO 10(L) 12 - 20 ratio 08/06/2023 10:46 AM [facility] TOTAL PROTEIN 6.6 6.3 - 8.2 g/dL 08/06/2023 10:46 AM [facility] ALBUMIN 4.0 3.5 - 5.0 g/dL 08/06/2023 10:46 AM [facility] A/G RATIO 1.5 1.0 - 2.2 08/06/2023 10:46 AM [facility] CALCIUM 9.1 8.7 - 10.5 mg/dL 08/06/2023 10:46 AM [facility] T BILI 0.6 0.2 - 1.2 mg/dL 08/06/2023 10:46 AM [facility] SGOT (AST) 19 5 - 34 U/L 08/06/2023 10:46 AM [facility] SGPT (ALT) 16 0 - 55 U/L 08/06/2023 10:46 AM [facility] ALKALINE PHOSPHATASE 67 40 - 150 U/L 08/06/2023 10:46 AM [facility] GFR, ESTIMATED >60 >=60 08/06/2023 10:46 AM [facility] Comment: Creatinine Clearance is the preferred criteria for selecting drug dose adjustments in renally impaired patients. The GFR is provided as additional pertinent clinical information. GFR is reported in mL/min/1.73 sq m. Calculation based on the Chronic Kidney Disease Epidemiology Collaboration (CKD- EPI) equation refit without adjustment for race. GFR, EST. >60 >=60 023 10:46 AM [facility] GFR, EST. NONAFRICAN >60 >=60 08/06/2023 10:46 AM [facility] Blood Venipuncture / Unknown 08/06/2023 10:12 AM HORSES[facility]ER 08/06/2023 10:24 AM HORSES[facility]ER us Santos Madrigal MD CHEMISTRY ORDERABLES F inal Result [facility] [address] [place] [address] from Last 3 Months or Most Recently Relevant to Health Maintenance Insurance [facility] Care Teams Funnel Coater Relationship Specialty Start Date End Date Mason Mijares DO [facility] [facility] [place] [address] PCP - General Internal Medicine 06/25/22 Glory Sanabria MD [address] [address] Consulting Physician Endocrinology 12/19/23
--- OUTSIDE RECORDS SUMMARY | 2025-02-15 19:25 | XMS_ITS | Continuity of Care Document ---
Author Organization [employer] [facility] Address [address] [place] [address] Deleon [address] [place] [address] Phone Care Team Providers Care Agricultural Education Teacher Name Role Phone Aleisha OD, Krysta Unavailable [...] Copied on Encounter Office/outpa tient Visit, Est [facility], [address] [place] [address] [address], [place], [place], [address], [place] tel:[phone] SEC [place] Professional Follow up visit (chief complaint) Dry eye syndrome of bilateral lacrimal glandsPresen ce of intraocular lensVitreous degeneration of right eye January- 3202 5 Aleisha OD Krysta. [address] [place] [address] [address], [address], [place], [place], [address], [place]. tel:[phone] Glory Sanabria MD.Referrin g Provider: Kenton Nelson, [address] [facility] [address], [place], [address]. tel:[phone] [facility], [address] [place] [address] [address], [place], [place], [address], [place] tel:[phone] [facility] Post-op (chief complaint) Dry eye syndrome of bilateral lacrimal glandsPostop check Dec- 5 Aleisha OD Krysta. [address] [place] [address] [address], [address], [place], [place], [address], [place]. tel:[phone] Specialist: Glory Sanabria MD, [address] [place], [address]. tel:[phone] ring Provider: Kenton Nelson, [address] [facility] [address], [place], [address]. tel:[phone] Office/outpa tient Visit, Est [facility], [address] [place] [address] [address], [place], [place], [address], [place] tel:[phone] [place] Professional Follow up visit (chief complaint) Other secondary cataract, right eye Mar-0 4-202 5 [place] Abdi. [address] [place] [address], [address], [place], [place], [address], [place]. tel:[phone] Joss Tadeo MD.Natalya Gauthier MD.Referrin g Provider: Kenton Nelson, [address] [facility] [address], [place], [address]. tel:[phone] Office/outpa tient Visit, [facility], [address] [place] [address] [address], [place], [place], [address], [place] tel:[phone] [place] Professional Complete Exam (chief complaint) Dry eye syndrome of bilateral lacrimal glandsOther secondary cataract, right eyeType 1 diabetes mellitus without complication s 4 Aleisha OD Krysta. [address] [place], [place] [address]i, [address], [place], [place], [address], [place]. tel:[phone] Joss Tadeo MD.Natalya Gauthier MD.Referrin g Provider: Kenton Nelson, [address] [facility] [address], [place], [address]. tel:[phone] Office/outpa tient Visit, [facility], [address] [place] [address] [address], [place], [place], [address], [place] tel:[phone] [place] Professional Flashes lights (chief complaint) Type 1 diabetes mellitus without complication sDry eye syndrome of bilateral lacrimal glandsTrigem inal nerve disorder, unspecified 4 Aleisha OD Krysta. [address] [place] [address] [address], [address], [place], [place], [address], [place]. tel:[phone] Joss Tadeo MD.Natalya Gauthier MD.Referrin g Provider: Kenton Nelson, [address] [facility] [address], [place], [address]. tel:[phone] Office/outpa tient Visit, [facility], [address] [place] [address] [address], [place], [place], [address], [place] tel:[phone] [place] Professional Follow up visit (chief complaint) Vitreous degeneration , left eye 4 Katrin OD Stacy. [address] [place] [address] [address], [address], [place], [place], [address], [place]. tel:[phone] Joss Tadeo MD.Natalya Gauthier MD.Referrin g Provider: Kenton Nelson, [address] [facility] [address], [place], [address]. tel:[phone] Office/outpa tient Visit, [facility], [address] [place] [address] [address], [place], [place], [address], [place] tel:[phone] SEC [place] KNAPP Professional Complete Exam (chief complaint) Type 1 diabetes mellitus without complication sPresence of intraocular lensOther secondary cataract, right eyeVitreous degeneration , left eyeDry eye syndrome of bilateral lacrimal glands 3 Katrin KRAMER Stacy. [facility] [employer], [address], [place], [place], [address], [place]. tel:[phone] Joss Tadeo MD.Natalya Gauthier [place].Speciali [place]: [place], [address] [facility] [address], [place], [address]. [phone] ring Provider: Stacy Wilkes OD L, [facility] [address], [place], [address]. tel:[phone] [facility], [address], [place], [place], [address], [place] tel:[phone] SEC Sudh[place] K[place] Professional Post-Op (chief complaint) Postop check Kimmy Fung. [address] [facility], [address], [place], [place], [address], [place]. tel:[phone] Joss Tadeo MD.Natalya Gauthier MD.Referrin g Provider: Kenton Nelson, [address] [facility] [address], [place], [address]. tel:[phone] Office/outpa tient Visit, [facility], [address] [place] [address] [address], [place], [place], [address], [place] tel:[phone] SEC [place] KNAPP Professional YAG capsulotomy evaluation (chief complaint) Other secondary cataract, bilateralOth er secondary cataract, left eye 3 Jaye Patton. [address] [place] [address] [address] [facility], [address], [place], [place], [address], [place]. tel:[phone] Specialist: [place], [address] [facility] [address], [place], [address]. tel:[phone] alist: Natalya Gauthier MD, [address] [facility] [address], [place], [address]. tel:[phone] ring Provider: Kenton Nelson, [address] [facility] [address], [place], [address]. tel:[phone] [facility], [address] [place] [address] [address], [place], [place], [address], [place] tel:[phone] SEC Sudhakar [place] Professional Complete Exam (chief complaint) PresbyopiaPr esence of intraocular lensType 1 diabetes mellitus without complication sKeratoconju nctivitis sicca of both eyes not due to Sjogren's syndrome Dec-0 3 Katrin OD Stacy. [address] [place], [place] [address]crest [employer] [facility], [address], [place], [place], [address], [place]. tel:[phone] Joss Tadeo MD.Referrin g Provider: Kenton Nelson, [address] [facility] [address], [place], [address]. tel:[phone] [facility], [address] [place], [place] [address] [address], [place], [place], [address], [place] tel:[phone] SEC Sudhakar KNAPP Professional 2 wk IOL exchange PO (10/27/22) (chief complaint) Postop check Nov- 3 Katrin OD Stacy. [facility] [employer], [address], [place], [place], [address], [place]. tel:[phone] Joss Tadeo MD.Referrin g Provider: Kenton Nelson, [address] [facility] [address], [place], [address]. tel:[phone] [facility], [address] [place] [address] [address], [place], [place], [address], [place] tel:[phone] [place] Professional 1 week po IOL Exchange OS (10/27/22) (chief complaint) Postop check Nov-0 3 Katrin OD Stacy. [address] [place], [place] [address]yavalu, [address], [place], [place], [address], [place]. tel:[phone] Joss Tadeo MD.Referneisha damon Provider: Kenton Nelson, [address] [facility] [address], [place], [address]. tel:[phone] [facility], [address] [place] [address] [address], [place], [place], [address], [place] tel:[phone] [place] Professional post op (chief complaint) Postop check Oct- 3 Katrin OD Stacy. [address] [place], [place] [address]crest [employer], [address], [place], [place], [address], [place]. tel:[phone] Joss Tadeo MD.Referneisha damon Provider: Kenton Nelson, [address] [facility] [address], [place], [address]. [phone] [facility] [address], [address] [place] [address] [address], [place], [place], [address], [place] tel:[phone] [facility] [place] No Information 3 Perez Fung. [address] [facility], [facility] [address], [place], [place], [address], [place]. tel:[phone] Referring Provider: Kenton Nelson, [address] [facility] [address], [place], [address]. tel:[phone] [facility], [address] [place] [address] [address], [place], [place], [address], [place] tel:[phone] SEC Sudhakar KNAPP Professional Post-Op (chief complaint) Postop checkOther mechanical complication of intraocular lens, subsequent encounter b1 3 Perez Fung. [address] [employer], [address], [place], [place], [address], [place]. tel:[phone] Joss Tadeo MD.Referrin g Provider: Kenton Nelson, [address] [employer] [address], [place], [address]. tel:[phone] [facility], [address] [place] [address] [address], [place], [place], [address], [place] tel:[phone] SEC Sudhakar KNAPP Professional 1 week s/p PCIOL (chief complaint) Postop check b-0 3 Katrin OD Stacy. [address] [place], [place] [address], [address], [place], [place], [address], [place]. tel:[phone] Joss Tadeo MD.Referneisha g Provider: Kenton Nelson, [address] [employer] [address], [place], [address]. tel:[phone] [facility], [address], [place], [place], [address], [place] tel:[phone] SEC Sudhakar KNAPP Professional post op (chief complaint) Postop check Feb-0 2 3 Katrin OD Stacy. [facility] [employer], [address], [place], [place], [address], [place]. tel:[phone] Joss Tadeo MD.Referneisha g Provider: Kenton Nelson, [address] [employer] [address], [place], [address]. tel:[phone] [facility], [address], [place], [place], [address], [place] tel:[phone] [facility] No Information 3 Perez Fung. [address], [address], [place], [place], [address], [place]. tel:[phone] Joss Tadeo MD.Phoebe damon Provider: Kenton Nelson, [address], [place], [address]. tel:[phone] Office/outpa tient Visit, [facility], [address] [place] [address] [address], [place], [place], [address], [place] tel: SEC [place] Professional Cataract evaluation (chief complaint) Keratoconjun ctivitis sicca of both eyes not due to Sjogren's syndromePres ence of intraocular lensType 1 diabetes mellitus without complication Purnima-related nuclear cataract, right eyeOther secondary cataract, left eye 2 Perez Fung. [address], [place], [place], [address], [place]. tel:[phone] Joss Tadeo MD.Referneisha damon Provider: Kenton Nelson, [address], [place], [address]. tel:[phone] Office/outpa tient Visit, [facility], [address] [place] [address] [address], [place], [place], [address], [place] tel:[phone] [place] Professional WIE (chief complaint) Presence of intraocular lensType 1 diabetes mellitus without complication sKeratoconju nctivitis sicca of both eyes not due to Sjogren's syndromeComb ined forms of age-related cataract, left eye Aug- 2 Perez Fung. [address], [address], [place], [place], [address], [place]. tel:[phone] Joss Tadeo MD.Phoebe damon Provider: Kenton Nelson, [address], [place], [address]. tel:[phone] Office/outpa tient Visit, [facility], [address], [place], [place], [address], [place] tel:[phone] [place] Professional flashes of light (chief complaint) Presence of intraocular lensCombined forms of age-related cataract, left eyeKeratocon junctivitis sicca of both eyes not due to Sjogren's syndromeType 1 diabetes mellitus without complication s Oct-3 2 Perez Fung. [address] [facility], [address], [place], [place], [address], [place]. tel:[phone] Specialist: [place], [address] [facility] [address], [place], [address]. tel:[phone] ring Provider: Kenton Nelson, [address] [facility] Technologies[facility] [address], [place], [address]. tel:[phone] Family History Family Member Type Diagnosis Age At Onset Problem Family history of Macular de generation Payers Payer name Insurance type Covered alliance party ID Authormandaa noemi(s) [facility] [id number] Social History Type Description Quantity Date Captured [...] is NIDDM II followed by Natalya Gauthier ENVIRONMENTAL ENGINEERING PROFESSOR @ [facility]. Pt. states her last HA1C was 7.6. [...]
--- OUTSIDE RECORDS SUMMARY | 2025-02-15 19:25 | XMS_ITS | Clinical Summary ---
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 Improving with lifestyle [...] pump Assessment & Plan (11/10/2021 10:07 AM RN CALL CENTER): Hba1c was Lab Results Component Value Date [...] 03/18/2011 Assessment & Plan (09/02/2022 4:12 PM RN CALL CENTER): Chronic problem, improving. 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 Not on file Not on file Not on file Obstetrics History Last Filed Vital Signs Vital Sign Reading Time Taken Comments Blood Pressure 103/70 10/24/2023 10:07 AM RN CALL CENTER Pulse 81 10/24/2023 10:07 AM RN CALL CENTER Temperature 36.4 C (97.6 F) 10/24/2023 10:07 AM RN CALL CENTER Respiratory Rate 18 08/19/2023 9:05 PM RN CALL CENTER Oxygen Saturation 98% 10/24/2023 10:07 AM RN CALL CENTER Inhaled Oxygen Concentration - - Weight 87.4 kg (192 lb 9.6 oz) 10/24/2023 10:07 AM RN CALL CENTER Height 167.6 cm (5' 6) 10/24/2023 10:07 AM RN CALL CENTER Body Mass Index 31.09 10/24/2023 10:07 AM RN CALL CENTER Plan of Treatment Health Maintenance Due Date [...] Ended) 2025 Medical Devices Implanted Type Area Guest Relations Receptionist Device Identifier Shelf Expiration Date Model / Serial / Lot [employer]/C R Bard [id number] Ventralex St Sepra Sorbaflex 2.5in [facility] Bioresorbable - Snone - [id number] Implanted:Qty: 1 on 12/09/2020 by Elvin Mcduffie MD at [facility] Mesh Right: Abdomen [employer]/C R Bard 05/02/2022 [id number] / NONE / [id number] Procedures Procedure Name Priority Date/Time Associated Diagnosis Comments DIABETES EYE EXAM Routine 08/23/2023 8:14 AM RN CALL CENTER EGFR STAT 08/19/2023 7:02 PM RN CALL CENTER POCT HEMOGLOBIN A1C Routine 09/02/2022 3 :21 PM RN CALL CENTER Type 1 diabetes mellitus with hyperglycemia (HCC) LIPID PANEL Routine 07/14/2022 12:20 PM RN CALL CENTER Type 1 diabetes mellitus with hyperglycemia (HCC) ALBUMIN CREATININE RATIO, URINE Routine 03/16/2022 8:13 AM CDT Type 1 diabetes mellitus with hyperglycemia (HCC) TSH Routine 03/16/2022 8:13 AM CDT Type 1 diabetes mellitus with hyperglycemia (HCC) from Last 3 Months or Most Recently Relevant to Health Maintenance Results * HM DIABETES EYE EXAM (08/23/2023 8:14 AM RN CALL CENTER) Historical Provider HEALTH MAINTENANCE Final Result * eGFR (08/19/2023 7:02 PM RN CALL CENTER) eGFR >90 >=60 mL/min/1. 73 m2 [facility] Comment: Interpretive Data Reference Interval Normal [...] last reviewed 2021. Blood 08/19/2023 7:02 PM RN CALL CENTER 08/19/2023 7:19 PM RN CALL CENTER Chano Cason MD LAB BLOOD ORDERABLES Nu mora Result [facility] [place] [facility] [place] [address] * (ABNORMAL) POCT hemoglobin A1c (09/02/2022 3:21 PM RN CALL CENTER) Hemoglobin A1C, POC 7.2 Blood 09/02/2022 3:21 PM RN CALL CENTER us Missy PARSON POINT OF CARE TEST ORDMichelle KRUSE Final Result * Lipid panel (07/14/2022 12:20 PM RN CALL CENTER) Cholesterol 189 30 - 199 mg/dL [facility] [...] last revised on 2018. Chol/HDL ratio 3 [facility] Blood 07/14/2022 12:2 0 PM RN CALL CENTER 07/14/2022 6:59 PM RN CALL CENTER Narrative [facility] - 07/14/2022 7:54 PM RN CALL CENTER These lab test should be done fasting. This means do not eat or drink for at least 12 hours prior to getting your blood drawn. us Joss Tadeo MD LAB BLOOD ORDERABLES Final Resul t Performing Organization Address [facility] Co de Phone Number [facility] [address] [address] [place] [address] * Albumin Creatinine Ratio, Urine (03/16/2022 8:13 AM CDT) Albumin Ur 22.8 mg/L [facility] Comment: Interpretive Data No reference range established. Current interpretive data was last revised 2019. Creatinine Ur 280.1 mg/dL [facility] Comment: Interpretive Data No reference range established. Current interpretive data was last revised 2019. Albumin Creatinine Ratio, Ur 8 1 - 29 mg/g [facility] Urine 03/16/2022 8:13 AM CDT 03/16/2022 2:38 PM CDT us Joss Tadeo MD LAB URINE ORDERABLES Final Resul t Performing Organization Address [facility] de Phone Number [place] [phone] [address] [place] [address] * TSH (03/16/2022 8:13 AM CDT) Thyroid Stimulating Hormone 2.77 0.30 - 4.20 mcIUnit/mL [facility] Blood 03/16/2022 8:13 AM CDT 03/16/2022 2:38 PM CDT us Joss Tadeo MD LAB BLOOD ORDERABLES Final Resul t Performing Organization Address [facility] Co de Phone Number [place] [address] [address] [place] [place] [address] from Last 3 Months or Most Recently Relevant to Health Maintenance [facility] For more information, please contact: [phone] Documents on File Type Date Recorded 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
--- OUTSIDE RECORDS SUMMARY | 2025-02-15 19:25 | XMS_ITS | Referral Summary ---
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 Improving with lifestyle [...] pump Assessment & Plan (11/10/2021 10:07 AM MANAGER LOCATION): Hba1c was Lab Results Component Value Date [...] 03/18/2011 Assessment & Plan (09/02/2022 4:12 PM MANAGER LOCATION): Chronic problem, improving. 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 Not on file Not on file Not on file Last Filed Vital Signs Vital Sign Reading Time Taken Comments Blood Pressure 103/70 10/24/2023 10:07 AM MANAGER LOCATION Pulse 81 10/24/2023 10:07 AM MANAGER LOCATION Temperature 36.4 C (97.6 F) 10/24/2023 10:07 AM MANAGER LOCATION Respiratory Rate 18 08/19/2023 9:05 PM MANAGER LOCATION Oxygen Saturation 98% 10/24/2023 10:07 AM MANAGER LOCATION Inhaled Oxygen Concentration - - Weight 87.4 kg (192 lb 9.6 oz) 10/24/2023 10:07 AM MANAGER LOCATION Height 167.6 cm (5' 6) 10/24/2023 10:07 AM MANAGER LOCATION Body Mass Index 31.09 10/24/2023 10:07 AM MANAGER LOCATION Plan of Treatment Not on file Medical Devices Implanted Type Area Canvas Shrinker Device Identifier Shelf Expiration Date Model / Serial / Lot [employer]/C R Bard [id number] Ventralex St Sepra Sorbaflex 2.5in [place] Open Bioresorbable - Snone - [id number] Implanted:Qty: 1 on 12/09/2020 by Elvin Mcduffie MD at [facility] Mesh Right: Abdomen [employer]/C R Bard 05/02/2022 [id number] / NONE / [id number] Procedures Procedure Name Priority Date/Time Associated Diagnosis Comments HM DIABETES EYE EXAM Routine 08/23/2023 8:14 AM MANAGER LOCATION EGFR STAT 08/19/2023 7:02 PM MANAGER LOCATION POCT HEMOGLOBIN A1C Routine 09/02/2022 3 :21 PM MANAGER LOCATION Type 1 diabetes mellitus with hyperglycemia (HCC) LIPID PANEL Routine 07/14/2022 12:20 PM MANAGER LOCATION Type 1 diabetes mellitus with hyperglycemia (HCC) ALBUMIN CREATININE RATIO, URINE Routine 03/16/2022 8:13 AM CDT Type 1 diabetes mellitus with hyperglycemia (HCC) TSH Routine 03/16/2022 8:13 AM CDT Type 1 diabetes mellitus with hyperglycemia (HCC) from Last 3 Months or Most Recently Relevant to Health Maintenance Results * DIABETES EYE EXAM (08/23/2023 8:14 AM MANAGER LOCATION) Historical Provider HEALTH MAINTENANCE Final Result * eGFR (08/19/2023 7:02 PM MANAGER LOCATION) eGFR >90 >=60 mL/min/1. 73 m2 [facility] [...] last reviewed 2021. Blood 08/19/2023 7:02 PM MANAGER LOCATION 08/19/2023 7:19 PM MANAGER LOCATION Chano Cason MD LAB BLOOD ORDERABLES Nu l Result [facility] Department [place] [address] * (ABNORMAL) POCT hemoglobin A1c (09/02/2022 3:21 PM MANAGER LOCATION) Hemoglobin A1C, POC 7.2 Blood 09/02/2022 3:21 PM MANAGER LOCATION Missy PARSON POINT OF CARE TEST MILDRED KRUSE Final Result * Lipid panel (07/14/2022 12:20 PM MANAGER LOCATION) Cholesterol 189 30 - 199 mg/dL [facility] [...] [facility]RY Blood 07/14/2022 12:2 0 PM MANAGER LOCATION 07/14/2022 6:59 PM MANAGER LOCATION Narrative [facility]RY - 07/14/2022 7:54 PM MANAGER LOCATION These lab test should be done fasting. This means do not eat or drink for at least 12 hours prior to getting your blood drawn. us Joss Tadeo MD LAB BLOOD ORDERABLES Final Resul t [facility] [address] Department [place] [address] * Albumin Creatinine Ratio, Urine [...] Resul t Performing Organization Address City/[facility] Co de Phone Number [facility] [address] Department [place] [address] * TSH (03/16/2022 8:13 AM CDT) Thyroid Stimulating Hormone 2.77 0.30 - 4.20 mcIUnit/mL [facility] Blood 03/16/2022 8:13 AM CDT 03/16/2022 2:38 PM CDT us Joss Tadeo MD LAB BLOOD ORDERABLES Final Resul t Performing Organization Address City/[facility] Co de Phone Number [facility] CURRY [address] Department [place] [employer] [place] [address] from Last 3 Months or Most Recently Relevant to Health Maintenance Insurance [facility] Advance Directives For more information, please contact: [phone] Documents on File Type Date Recorded Patient Lead Person Expl anation ADVANCE DIRECTIVE 12/13/2020 11:04 PM ADVANCE DIRECTIVE 12/09/2020 9:09 AM Care Teams Grain Miller Helper Relationship Specialty Start Date End Date Mason Mijares DO PCP - General 10/21/14 Elvin Mcduffie MD Consulting Physician General Surgery 12/09/20
--- OUTSIDE RECORDS SUMMARY | 2025-02-15 19:25 | XMS_ITS | Continuity of Care Document ---
Author Organization [facility] [place] [address] [place] [address] [place] [address] Phone Care Team Providers Care Ecological Modeler Name Role Phone [facility] Unavailable Unavail able Procedures Procedure Date Corneal Topography Advance Directives Directive Yes / No Effective Date File Name No Information Encounters Encounter Description Practice Location Reason(s) For Visit Diagnoses Date Provider Providers Copied on Encounter [facility], [address], [place], [place], [id number], [place] tel:[phone] [facility] No Information [facility] . [address], [place], [id number], [place]. tel:[phone] Referring Provider: Joe Duenas OD F, [address], [place], [address]. tel:[phone] Family History Family Member Type Diagnosis Age At Onset No Information Payers Payer name Insurance type Covered alliance party ID Authoriza tion(s) No Information Social [...]
--- OUTSIDE RECORDS SUMMARY | 2025-02-15 19:25 | XMS_ITS | Clinical Summary ---
Author Organization [facility] [employer] Address [address] [facility] [place] [address] Care Team Providers Care Fishing Captain Name Role Phone Mason Mijares DO Primary Care Provider [phone] Source Comments [facility] [employer],non-owned Affiliates and Associated Physician Practices is amultiple site organization consisting of ambulatory clinics and hospital sitesin [place], [place]. This disclosure is being madepursuant to the Care Everywhere program and may not contain all information available regarding this patient. Last updated 18.[facility] [employer] Allergies Active Allergy Reactions Criticality Noted Date [...] on file Legal Sex Female 3:14 PM TITLE SEARCH MANAGER Gender Identity Female Sexual Orientation Not on file Last Filed Vital Signs Vital Sign Reading Time Taken Comments Blood Pressure 110/70 10/02/2018 11:23 AM TITLE SEARCH MANAGER Pulse 74 10/02/2018 11:23 AM TITLE SEARCH MANAGER Temperature 37.2 C (99 F) 10/02/2018 11:23 AM TITLE SEARCH MANAGER Respiratory Rate 16 10/02/2018 11:23 AM TITLE SEARCH MANAGER Oxygen Saturation 98% 10/02/2018 11:23 AM TITLE SEARCH MANAGER Inhaled Oxygen Concentration - - Weight 88 kg (194 lb) 10/02/2018 11:23 AM TITLE SEARCH MANAGER Height 167.6 cm (5' 6) 10/02/2018 11:23 AM TITLE SEARCH MANAGER Body Mass Index 31.31 10/02/2018 11:23 AM TITLE SEARCH MANAGER Plan of Treatment Health Maintenance Due [...] Most Recently Relevant to Health Maintenance Insurance [employer] Member Subscriber Plan / Payer (Ef fective 2023-Present) Name:Natalia Morrissey Carla Relation to Subscriber:Self Name:Natalia Morrissey Payer ID:[id number] (NAIC) Group ID:Not on file Type:O Address: [address] [place] [address] [employer] Care Teams Fishing Captain Relationship Specialty Start Date End Date Mason Mijares DO PCP - General Internal Medicine 11/09/16
--- OUTSIDE RECORDS SUMMARY | 2025-02-15 19:25 | XMS_ITS | Encounter Summary ---
Author Organization [facility] Address [address] [facility] [place] [address] Care Team Providers Care Log Loader Helper Name Role Phone Milagromary annMason DO Primary Care Provider [phone] Encounter Details Date Type Department Care Team (Late st Contact Info) Description 03/01/[address] [facility] - DermPath Lab [address] [place] [id number] Aris Dunn MD [address] [address] Social History Tobacco Use Types Packs/Day Years Used Date Smoking Tobacco: Never Smokeless Tobacco: Never Comments No Sex and Gender Information Value Date Recorded Sex Assigned at Not on file Legal Sex Female 3:14 PM RETAIL PERFORMANCE SPECIALIST Gender Identity Female Sexual Orientation Not on file documented as of this encounter Plan of Treatment Not on file documented as of this encounter Procedures Procedure Name Priority Date/Time Associated Diagnosis Comments DERMATOPATHOLOGY Routine 02/28/2024 12:0 0 AM CDT documented in this encounter Results * DERMATOPATHOLOGY (02/28/2024 12:00 AM CDT) Case Report Dermatopathology Report Case: [id number] Authorizing Provider: Aris Dunn MD Collected: 02/28/2024 12:00 AM Ordering Location: [facility] - Received: 03/01/2024 12:26 PM [...] purposes. Billing Codes Specimen Charges Stain Charges 44958 1 12:50 PM CDT DERMATOPATHOLOGY LABORATORY Embedded Images 12:50 PM CDT DERMATOPATHOLOGY LABORATORY Pathology/Cytolog y TISSUE SPECIMEN FROM SKIN / Unknown 02/28/2024 03/01/2024 12:26 PM CDT us rAis Dunn MD LAB - PATHOLOGY/CYTOLOGY ORDERAB LES Final Result DERMATOPATHOLOGY LABORATORY [facility] - Department of Dermatology [facility], [address]rd Floor [address] [phone] documented in this encounter Visit Diagnoses Not on filedocumented in this encounter Care Teams Log Loader Helper Relationship Specialty Start Date End Date Mason Mijares DO PCP - General Internal Medicine 11/09/16 documented as of this encounter
--- NOTE | 2025-02-15 19:43 | PC.NURSE ---
EKG delayed as patient was off the unit for US
[2025-02-15 19:46] VITALS: BP 140/82; PULSE 73; PULSE 74; RESP 14; O2SAT 98
[2025-02-15 20:52] VITALS: BP 118/77; PULSE 74; RESP 12; O2SAT 96
[2025-02-15 22:09] VITALS: BP 132/73; PULSE 73; RESP 15; O2SAT 98
--- NOTE | 2025-02-15 22:54 | PC.NURSE ---
Report received from TESFAYE Zaldivar. Assumed care of patient at this time.
--- NOTE | 2025-02-15 23:33 | PC.NURSE ---
Patient requesting to speak with ERP, BLANK Farrell notified.
[2025-02-15 23:34] VITALS: BP 117/85; PULSE 77; RESP 14; O2SAT 95
--- NOTE | 2025-02-15 23:38 | PC.NURSE ---
Ok to give pr water per BLANK Farrell.
[2025-02-16 00:17] VITALS: BP 124/75; PULSE 78; RESP 17; O2SAT 99
== END 2025-02-16 00:23 | disposition home or self-care (01) ==
PROVIDERS: Emergency Provider Physician Assistant; PCP Internal Medicine
DX: M79.602 Pain in left arm (principal); R42 Dizziness and giddiness; J45.909 Unspecified asthma, uncomplicated; K21.9 Gastro-esophageal reflux disease without esophagitis; F41.9 Anxiety disorder, unspecified; Z98.41 Cataract extraction status, right eye; Z86.16 Personal history of COVID-19; Z79.4 Long term (current) use of insulin; R94.31 Abnormal electrocardiogram [ECG] [EKG]
CPT/HCPCS: 36415; 70496; 70498; 71046; 80053; 84484; 85025; 93005; 93971; 99284; Q9967

== ENCOUNTER 2025-02-25 12:53 | Outpatient (CLI) | payer BC, SELFPAY ==
--- NOTE | ~2025-02-25 | MR_ITS ---
EXAMINATION: MR brain/brain stem wo con DATE: 02/25/2025 13:32 INDICATION: Headache TECHNIQUE: Magnetic resonance imaging (MRI) of the brain and brainstem was performed without intraven ous contrast. Sequences included sagittal and axial T1-weighted SE, axial diffusion-weighted FS SE, a xial 3D SWAN, axial T2-weighted FLAIR, and axial T2-weighted FSE. Apparent diffusion coefficient (ADC ) maps were created. COMPARISON: Head CT and CT angiogram dated 02/15/2025 FINDINGS: There are no areas of restricted diffusion to suggest acute infarction. No intracranial hemorrhage or abnormal intracranial mass lesion. There are no intraparenchymal signal abnormalities seen on the ot her pulse sequences. The ventricles are symmetric and normal in size. There are no abnormal extra-axi al fluid collections. Flow voids are seen in the cerebral arteries on the T2-weighted sequences consi stent with their expected patency. Changes of bilateral intraocular lens replacement. Visualized orbi ts and soft tissues are unremarkable. IMPRESSION: 1. Normal brain. Reviewed, dictated and finalized at location A. IMPRESSION: 1. Normal brain.
== END 2025-02-25 12:54 | disposition home or self-care (01) ==
PROVIDERS: PCP Internal Medicine; Visit Provider Internal Medicine
DX: R51.9 Headache, unspecified (principal); R42 Dizziness and giddiness; R20.2 Paresthesia of skin
CPT/HCPCS: 70551

== ENCOUNTER 2025-03-08 09:36 | Emergency (ER) | payer BC, SELFPAY ==
[2025-03-08 09:44] VITALS: BP 108/79; PULSE 72; RESP 20; TEMP 36.4; O2SAT 100
--- NOTE | 2025-03-08 11:07 | ED_ITS ---
HPI - Extremity Problem General Chief complaint: Extremity Problem,Nontraumatic Stated complaint: Bruise Left Leg Time Seen by Provider: 03/08/25 09:45 Source: patient and RN notes reviewed Mode of arrival: ambulatory Limitations: no limitations History of Present Illness HPI Narrative: 55-year-old female presents to the [facility] complaining of left lower leg bruising behind her left calf and lower leg pain over the last few days. Patient denies any injury to her her leg, or any falls. Patient reports that she has a history of varicose veins in this area and noticed a slight bruise you days ago that has progressively gotten worse. Patient states that is also tender to palpate the area of the bruise and starting to feel pain behind her left knee and left calf. Patient denies any leg swelling, chest pain, shortness of breath, or any other symptoms. Patient denies any recent surgeries or any history of blood clots. Patient does have a family history blood clotting disorder. Related Data Home Medications ?Medication ?Instructions ?Recorded ?Confirmed ?Last Taken ?Type blood sugar diagnostic (OneTouch #10 ea 07/30/19 02/11/25 Unknown History Verio test strips) pen needle, diabetic 31 gauge x #30 ea 05/27/20 02/11/25 Unknown History 3/16 (BD Ultra-Fine Mini Pen Needle) perfluorohexyloctane (PF) 100 % 1 drp LEFT EYE Q4H 05/28/24 02/11/25 Unknown History eye drops (Miebo (PF)) blood-glucose sensor (Dexcom G7 #1 ea 01/21/25 02/11/25 Unknown History Sensor device) cyclosporine 0.05 % eye drops in a drp EACH EYE 01/21/25 02/11/25 Unknown History dropperette (Restasis) insulin pump cart,auto,BT,G6/7 #5 ea 01/21/25 02/11/25 Unknown History (Omnipod 5 G6-G7 Pods (Gen 5) subcutaneous cartridge) insulin lispro 100 unit/mL 03/08/25 Unknown History subcutaneous solution Allergies Allergy/AdvReac Type Severity Reaction Status Date / Time latex Allergy Severe Rash Verified 02/15/25 17:02 Penicillins Allergy Unknown Other Verified 02/15/25 17:02 venom-wasp Allergy Unknown SWELLING, Verified 02/15/25 17:02 THROAT SWELLING bee venom protein (honey Allergy THROAT Verified 02/15/25 17:02 bee) (bees) SWELLING mushroom Allergy THROAT Verified 02/15/25 17:02 SWELLING Statins Allergy Intermediate Unknown Uncoded 02/15/25 17:02 Review of Systems Review of Systems: CONSTITUTIONAL: Denies fever, chills, or sweats. EYES: Denies visual changes, redness, or discharge. ENT: Denies rhinorrhea, congestion, sore throat, or otalgia. CARDIOVASCULAR: Denies chest pain, palpitations, or edema. RESPIRATORY: Denies cough or dyspnea. GASTROINTESTINAL: Denies abdominal pain, nausea, vomiting, or diarrhea. GENITOURINARY: Denies dysuria or hematuria. SKIN: Denies rash or itching. Positive for bruise. MUSCULOSKELETAL: Denies back pain, joint pain, or myalgia. Positive for left lower leg pain. NEUROLOGIC: Denies headache, numbness, or weakness. PSYCHIATRIC: Denies anxiety or depression. All other systems reviewed are negative, except as documented in HPI. [facility] Past Medical History Medical History Subluxation of lens, left eye Right upper quadrant pain Anxiety COVID-19 Varicose veins of both lower extremities Asthma Bronchitis GERD (gastroesophageal reflux disease) Surgical History Surgical History History of endometrial ablation History of cataract surgery Right eye 02/2022 History of hernia repair H/O dilation and curettage Status post cervical polyp removal H/O shoulder surgery Right and left H/O foot surgery Left foot bone replacement History of repair of ACL H/O adenoidectomy History of tonsillectomy Family History Family History Mother Family history of thyroid disease Father Family history of blood dyscrasia Grandparent Cerebrovascular accident Other Hypertension Osteoarthritis Social History Social History Smoking status: Never smoker Second hand tobacco smoke exposure: No Alcohol intake: current Alcohol use details: rarely Substance use: never Substance use type: does not use Lack of Transportation: No Lack of Food: Never True Current Housing: I Have Housing Concerned About Future Housing: No Difficulty Paying Gas/Electric Bills: No Difficulty Paying for Meds: No Currently Unemployed: No Education: Master's Degree or Higher Difficulty w/ Childcare or Family Care: No Living arrangements: with family Occupation/Education: 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 There is no relevant family history pertinent to the patient complaint. Exam Narrative: GENERAL: This is a well-nourished, well-developed adult, in no apparent distress. They are non ill-appearing, nontoxic appearing. HEAD: normocephalic, atraumatic. EYES: Sclera clear/white. Conjunctiva normal. Vision is grossly intact. Extraocular movements intact EARS: External ears normal,Hearing grossly intact. NOSE: External nose normal THROAT: Mucous membranes moist, NECK: Neck supple, CARDIOVASCULAR: Regular rate and rhythm RESPIRATORY: Respiratory rate normal, respiratory effort nonlabored, no respiratory distress SKIN: Varicosities present to the left lower extremity. There is a contusion present to the left posterior upper calf is tender to palpate. His measures approximately 3 cm x 3 cm. No palpable cord. There is tenderness to palpation behind the left knee and left calf. Left pedal pulse 2 +palpable. NeuroVascular status intact. Capillary refill less than 2 seconds. NEURO: awake, alert, and oriented to person, place and time. There were no o bvious focal neurologic abnormalities. EXTREMITIES: No joint tenderness, effusion, or edema noted. Course Course Emergency Course: Portions of this record may have been created with voice recognition software Level of Care: Express Care Visit Vital Signs Vital signs: Vital Signs Temperature 97.6 F 03/08/25 09:44 Pulse Rate 72 03/08/25 09:44 Respiratory Rate 20 03/08/25 09:44 Blood Pressure 108/79 03/08/25 09:44 Pulse Oximetry 100 03/08/25 09:44 Oxygen Delivery Room Air 03/08/25 09:44 Temperature 97.6 F 03/08/25 09:44 Pulse Rate 72 03/08/25 09:44 Respiratory Rate 20 03/08/25 09:44 Blood Pressure 108/79 03/08/25 09:44 Pulse Oximetry 100 03/08/25 09:44 Oxygen Delivery Room Air 03/08/25 09:44 Reviewed Transfer Transfered to: [facility] ([place] Transportation: Other (Private vehicle) Transfer rationale: Patient requiring Higher level care, rule out deep vein thrombosis Accepting physician: Dr. Nguyen MDM - Extremity (Nontraumatic) MDM Narrative Medical decision making narrative: Patient advised we do not have blood work or ultrasound capabilities to rule out deep vein thrombosis. Patient does have contusion to her left lower leg however there is concerning pain behind her left knee left calf. Wells score of 2. Given patient's symptoms, it is recommend the patient seek a higher level care and proceed immediately to the emergency department. Patient would like to go to [facility], patient is aware at [facility] does not have ultrasound capabilities today but are able to do lab work to assess for a blood clot, patient still would like to go to [facility]. Called over to [facility] and spoke to Mary CARLIN whose wear this patient and Dr. Nguyen who accepted the patient for transfer. Patient advised to remain NPO and proceed immediately to the ER. Differential Diagnosis Differential diagnosis: Likely superficial thrombophlebitis, deep vein thrombosis of lower extremity and other (Varicose veins, hematoma, contusion) Critical Care Time Critical Care Time Critical Care Time: No Discharge Plan Discharge Clinical Impression: Lower extremity pain, Superficial bruising of lower leg Patient Disposition: Acute Care Hospital Condition: Stable Patient Language: Spanish Prescriptions: No Action insulin lispro 100 unit/mL solution Miebo (PF) 100 % drops 1 drp LEFT EYE Q4H (DME) pen needle, diabetic [BD Ultra-Fine Mini Pen Needle] 31 gauge x 3/16 needle See Rx Instructions .ROUTE .MEDSUPPLY Qty: 30 Rx Instructions: Use with insulin injections 5-6 times daily (DME) Dexcom G6 Transmitter Device See Rx Instructions .ROUTE .MEDSUPPLY Qty: 1 3RF Rx Instructions: replace every 90 days cyclosporine [Restasis] 0.05 % dropperette EACH EYE (DME) Dexcom G7 Sensor Device See Rx Instructions .ROUTE .MEDSUPPLY Qty: 1 Rx Instructions: As directed (DME) Omnipod 5 G6-G7 Pods (Gen 5) Cartridge See Rx Instructions .ROUTE .MEDSUPPLY Qty: 5 Rx Instructions: As directed (DME) OneTouch Verio test strips Strip See Rx Instructions .ROUTE .MEDSUPPLY Qty: 10 Rx Instructions: Use to check BS 4-6 times daily albuterol sulfate [ProAir HFA] 90 mcg/actuation HFA aerosol inhaler 1 inh INHALATION DIRECTED PRN (Reason: Shortness Of Breath Or Wheezing) Qty: 8.5 3RF (DME) Dexcom G6 Automatic Wheel Line Operator Misc See Rx Instructions .ROUTE .MEDSUPPLY Qty: 0 0RF Rx Instructions: 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 diphenhydramine HCl [Allergy (diphenhydramine)] 25 mg capsule 25 mg PO TID PRN (Reason: allergy symptoms) Qty: 20 0RF epinephrine [EpiPen] 0.3 mg/0.3 mL auto-injector 0.3 mg IM Q5-15M PRN (Reason: anaphylaxis) Qty: 1 0RF Rx Instructions: do not exceed 3 doses per episode insulin aspart U-100 [Novolog FlexPen U-100 Insulin] 100 unit/mL (3 mL) insulin pen See Rx Instructions .ROUTE .COMPLEX Qty: 15 2RF Dose Instruction: USE DIRECTED 1 UNIT PER 15 CARBS MAX DOSE OF 50 UNITS Rx Instructions: USE DIRECTED 1 UNIT PER 15 CARBS MAX DOSE OF 50 UNITS Follow-up/Referrals: Mason Mijares DO [Primary Care Provider] - Time of Disposition: 10:00
== END 2025-03-08 10:02 | disposition short-term general hospital (02) ==
PROVIDERS: PCP Internal Medicine
DX: M79.662 Pain in left lower leg (principal); S80.12XA Contusion of left lower leg, initial encounter; X58.XXXA Exposure to other specified factors, initial encounter; I83.93 Asymptomatic varicose veins of bilateral lower extremities; J45.909 Unspecified asthma, uncomplicated; K21.9 Gastro-esophageal reflux disease without esophagitis; Z86.16 Personal history of COVID-19; Z83.2 Family history of diseases of the blood and blood-forming organs and certain disorders involving the immune mechanism
CPT/HCPCS: 99212; G0463

== ENCOUNTER 2025-03-25 10:01 | Outpatient (CLI) | payer BC, SELFPAY ==
--- OUTSIDE RECORDS SUMMARY | 2025-03-25 10:12 | XMS_ITS | Continuity of Care Document ---
Author Organization [facility] Address [address] [place] [address] Dr Deleon [address] [place] [phone] Phone Care Team Providers Care Chute Man Name Role Phone Aleisha OD, Krysta Unavailable Unavailable Allergies, Adverse Reactions, Alerts Substance Reaction Status Criticality ANESTHESIA TRAY Active No Informati on latex Active No Information Medications Medication Instructions Dosage Effective Dates (start - stop) Status Comments Miebo (PF) 100 % eye drops instill 1 drop by ophthalmic route 4 times every day into affected eye(s) 1.00 drop - Active Restasis 0.05 % eye drops in a dropperette instill 1 drop by ophthalmic route every 12 hours into both eyes 1 drop - Active VITAMIN A (unknown strength) [...] hours as needed 180 MCG - Active Miebo 100 % eye drops instill 1 drop by ophthalmic route 4 times every day into affected eye(s) 1.00 drop - No Longer Active Procedures Procedure Date No Charge Optomap Fundus Photos 025 Office/outpatient Visit, Est No Charge Refraction No Charge Optomap Fundus Photos 025 Post-op Follow-up Visit After Cataract Laser Surgery [...] Diagnoses Date Provider Providers Copied on Encounter [facility], [id number] [place] [address] [address], [place], [place], [address], [place] tel:[phone] SEC [place] No Information 5 Aleisha OD Krysta. [id number] [place] [address] [address], [place], [place], [address], [place]. tel:[phone] Office/outpa tient Visit, Est [facility], [address] [place] [address] [address], [place], [place], [address], [place] tel:[phone] SEC [place] Professional Follow up visit (chief complaint) Dry eye syndrome of bilateral lacrimal glandsPresen ce of intraocular lensVitreous degeneration of right eye 5 Aleisha OD Krysta. [address], [place], [place], [address], [place]. tel:[phone] Glory Sanabria MD.Referrin g Provider: Kenton Nelson, [address] [facility] [address], [place], [address]. tel:[phone] [facility], [address], [place], [place], [address], [place] tel:[phone] DEI [place] [facility] Post-op (chief complaint) Dry eye syndrome of bilateral lacrimal glandsPostop check 5 Aleisha OD Krysta. [address], [address], [place], [place], [address], [place]. tel:[phone] Specialist: Glory Sanabria MD, [address] [place], [address]. tel:[phone] ring Provider: Kenton Nelson, [address] [facility] [address], [place], [address]. tel:[phone] Office/outpa tient Visit, [facility], [address] [place] [address] [address], [place], [place], [address], tel:[phone] SEC [place] Professional Follow up visit (chief complaint) Other secondary cataract, right eye Mar-0 - 5 [place] Abdi. [address] [place] [address], [address], [place], [place], [address], [place]. tel:[phone] Joss Tadeo MD.Natalya Gauthier MD.Referrin g Provider: Kenton Nelson, [address] [facility] [address], [place], [address]. tel:[phone] Office/outpa tient Visit, [facility], [address] [place] [address] [address], [place], [place], [address], tel:[phone] SEC [place] Professional Complete Exam (chief complaint) Dry eye syndrome of bilateral lacrimal glandsOther secondary cataract, right eyeType 1 diabetes mellitus without complication s 4 Aleisha OD Krysta. [address] [place] [address] [address], [address], [place], [place], [address], [place]. tel:[phone] Joss Tadeo MD.Natalya Gauthier MD.Referrin g Provider: Kenton Nelson, [address] [facility] [address], [place], [address]. tel:[phone] Office/outpa tient Visit, [facility], [address] [place] [address] [address], [place], [place], [address], [place] tel:[phone] SEC [place] Professional Flashes lights (chief complaint) Type 1 diabetes mellitus without complication sDry eye syndrome of bilateral lacrimal glandsTrigem inal nerve disorder, unspecified 4 Aleisha OD Krysta. [address] [place] [address] [address], [address], [place], [place], [address], [place]. tel:[phone] Joss Tadeo MD.Natalya Gauthier MD.Referrin g Provider: Kenton Nelson, [address] [facility] [address], [place], [address]. [phone] Office/outpa tient Visit, [facility], [address] [place], [place] [address] [address], [place], [place], [address], [place] tel:[phone] SEC [place] Professional Follow up visit (chief complaint) Vitreous degeneration , left eye 4 Katrin OD Stacy. [address] [place] [address] [address] [place], [address], [place], [place], [address], [place]. tel:[phone] Joss Tadeo MD.Natalya Gauthier MD.Referrin g Provider: Kenton Nelson, [address] [facility] [address], [place], [address]. [phone] Office/outpa tient Visit, [facility], [address] [place] [address] [address], [place], [place], [address], [place] tel:[phone] SEC [place] Professional Complete Exam (chief complaint) Type 1 diabetes mellitus without complication sPresence of intraocular lensOther secondary cataract, right eyeVitreous degeneration , left eyeDry eye syndrome of bilateral lacrimal glands 3 Katrin OD Stacy. [address] [place] [address] [address] [place], [address], [place], [place], [address], [place]. tel:[phone] Joss Tadeo MD.Natalya Gauthier MD.Speciali [place]: [place], [address], [place], [address]. tel:[phone] ring Provider: Stacy Wilkes OD L, [address] [place], [place] [address]crest [address] [place] [address], [place], [address]. [phone] [facility], [address] [place] [address] [address], [place], [place], [address], [place] tel:[phone] [place] Professional Post-Op (chief complaint) Postop check 3 Perez Fung. [address] [facility], [address], [place], [place], [address], [place]. tel:[phone] Joss Tadeo MD.Natalya Gauthier MD.Referrin g Provider: Kenton Nelson, [address] [facility] [address], [place], [address]. tel:[phone] Office/outpa tient Visit, [facility], [facility] [address], [place], [place], [address], [place] tel:[phone] SEC Sudhakar [place] Professional YAG capsulotomy evaluation (chief complaint) Other secondary cataract, bilateralOth er secondary cataract, left eye 3 Jaye Patton. [facility] [employer], [address], [place], [place], [address], [place]. tel:[phone] Specialist: [place], [address] [facility] [address], [place], [address]. [phone] alist: Natalya Gauthier MD, [address] [facility] [address], [place], [address]. tel:[phone] ring Provider: Kenton Nelson, [address] [facility] [address], [place], [address]. [phone] [facility], [facility] [address], [place], [place], [address], [place] tel:[phone] SEC Sudhakar [place] Professional Complete Exam (chief complaint) PresbyopiaPr esence of intraocular lensType 1 diabetes mellitus without complication sKeratoconju nctivitis sicca of both eyes not due to Sjogren's syndrome Dec- 3 Katrinedwina Kumar. [facility] [employer], [address], [place], [place], [address], [place]. tel:[phone] Joss Tadeo MD.Referrin g Provider: Kenton Nelson, [address] [facility] [address], [place], [address]. tel:[phone] [facility], [address] [place] [address] [address], [place], [place], [address], tel:[phone] SEC [place] Professional 2 wk IOL exchange PO (10/27/22) (chief complaint) Postop check Nov-1 3 Katrin OD Stacy. [address] [place] [address] [employer], [address], [place], [place], [address], [place]. tel:[phone] Joss Tadeo MD.Referrin g Provider: Kenton Nelson, [address] [facility], [place], [address]. tel:[phone] [facility], [address] [place] [address] [address], [place], [place], [address], tel:[phone] SEC [place] Professional 1 week po IOL Exchange OS (10/27/22) (chief complaint) Postop check Nov-0 - 3 Katrin OD Stacy. [address] [place] [address] [address] [place], [address], [place], [place], [address], . tel:[phone] Joss Tadeo MD.Referrin g Provider: Kenton Nelosn, [address] [facility], [place], [address]. tel:[phone] [facility], [address] [place] [address] [address], [place], [place], [address], [place] tel:[phone] SEC [place] Professional post op (chief complaint) Postop check Oct- 3-202 3 Katrin OD Stacy. [address] [place] [address] [address] [place], [address], [place], [place], [address], . tel:[phone] Joss Tadeo MD.Referrin g Provider: Kenton Nelson, [address] [facility] [address], [place], [address]. tel: [facility], [address] [place] [address] [address], [place], [place], [address], [place] tel: [facility] [place] No Information Oct- 3 Perez Fung. [address] [facility], [address], [place], [place], [address], . tel:[phone] Referring Provider: Kenton Nelson, [address] [facility] [address], [place], [address]. tel:[phone] [facility], [address] [place] [address] [address], [place], [place], [address], [place] tel:[phone] SEC Sudhakar [place] Professional Post-Op (chief complaint) Postop checkOther mechanical complication of intraocular lens, subsequent encounter 3 Perez Fung. [address] [facility], [address], [place], [place], [address], [place]. tel:[phone] Joss Tadeo MD.Referrin g Provider: Kenton Nelson, [address] [facility] [address], [place], [address]. tel:[phone] [facility], [address] [place] [address] [address], [place], [place], [address], [place] tel:[phone] SEC Sudhakar KNA[place] Professional 1 week s/p PCIOL (chief complaint) Postop check b-0 3 Katrin OD Stacy. [address] [place] [address], [address], [place], [place], [address], [place]. tel:[phone] Joss Tadeo MD.Referrin g Provider: Kenton Nelson, [address] [facility] [address], [place], [address]. tel:[phone] [facility], [address] [place] [address] [address], [place], [place], [address], [place] tel:[phone] SEC [place] Professional post op (chief complaint) Postop check 0 3 Katrin Kumar. [address] [place] [address] [address], [address], [place], [place], [address], [place]. tel:[phone] Joss Tadeo MD.Phoebe damon Provider: Kenton Nelson, [address], [place], [address]. tel:[phone] [facility], [address] [place] [address] [address], [place], [place], [address], [place] tel:[phone] [facility] [place] No Information 3 Perez Fung. [address] [employer], [address], [place], [place], [address], [place]. tel:[phone] Joss Tadeo MD.Referneisha damon Provider: Kenton Nelson, [address] [facility] [address], [place], [address]. tel:[phone] Office/outpa tient Visit, [facility], [address] [place] [address] [address], [place], [place], [address], [place] tel:[phone] SEC [place] Professional Cataract evaluation (chief complaint) Keratoconjun ctivitis sicca of both eyes not due to Sjogren's syndromePres ence of intraocular lensType 1 diabetes mellitus without complication Purnima-related nuclear cataract, right eyeOther secondary cataract, left eye 2 Perez Fung. [address] [employer], [address], [place], [place], [address], [place]. tel:[phone] Joss Tadeo MD.Referneisha damon Provider: Kenton Nelson, [address], [place], [address]. [phone] Office/outpa tient Visit, [facility], [address] [place] [address] [address], [place], [place], [address], [place] tel:[phone] SEC [place] Professional WIE (chief complaint) Presence of intraocular lensType 1 diabetes mellitus without complication sKeratoconju nctivitis sicca of both eyes not due to Sjogren's syndromeComb ined forms of age-related cataract, left eye Dec-2 2 Perez Fung. [address], [place], [place], [address], [place]. tel:[phone] Joss Tadeo MD.Referrin g Provider: Kenton Nelson, [address], [place], [address]. tel:[phone] Office/outpa tient Visit, [facility], [facility], [address], [place], [place], [address], [place] [phone] SEC [place] Professional flashes of light (chief complaint) Presence of intraocular lensCombined forms of age-related cataract, left eyeKeratocon junctivitis sicca of both eyes not due to Sjogren's syndromeType 1 diabetes mellitus without complication s Oct-3 2 Perez Fung. [address] [facility], [place], [place], [address], [place]. tel:[phone] Specialist: [place], [address] [facility] [address], [place], [address]. tel:[phone] ring Provider: Kenton Nelson, [address], [place], [address]. tel:[phone] Family History Family Member Type Diagnosis Age At Onset Problem Family history of Macular de generation Payers Payer name Insurance type Covered republican ID Authormandaa noemi(s) [facility] [id number] Social History Type Description Quantity Date Captured Comments Alcohol Use Details Unknown Caffeine Use Details Unknown Tobacco Use Status No Information Smoking Status No Information Sex Female Chief Complaint And Reason For Visit No [...] is NIDDM II followed by Natalya Gauthier NP @ [facility]. Pt. states her last HA1C was 7.6. [...] was coughing a lot. Patient said on [place] schuyler she has an increase in flashes [...] Impression/Plan Impression/Plan Impression/Plan Assessments Type Assessment Date No Information Patient Care Teams Name Effective Dates (start - stop) Status Members No Information
--- OUTSIDE RECORDS SUMMARY | 2025-03-25 10:12 | XMS_ITS | Clinical Summary ---
Author Organization [facility] Address [address] [place] [address] Phone Care Team Providers Care Entry Level Management Name Role Phone Mason Mijares DO Primary Care Provider Glory Sanabria MD [...] Insulin Pen Needle (Global Ease Inject Pen [place]) 32G X 4 MM Misc Use to [...] 9 Each 9 4 Active Continuous Glucose Marketing Teacher (Dexcom G7 Marketing Teacher) Device CHECK BLOOD GLUCOSE BEFORE EACH MEAL AND AT BEDTIME 1 Each 5 Active insulin lispro (HumaLOG) 100 UNIT/ML Solution PER INSULIN PUMP SETTING, UP TO 50 UNITS PER DAY 50 mL 3 5 Active Insulin Disposable Pump (Omnipod 5 [id number] Pods Gen 5) Misc CHANGE EVERY 3 DAYS 30 Each 9 5 Active Insulin Aspart (NovoLOG) 100 UNIT/ML Solution UP TO 60 UNITS PER INSULIN PUMP SETTING 60 mL 1 5 Active Continuous Glucose Sensor (Dexcom G7 Sensor) Misc CHANGE SENSOR EVERY 10 DAYS 9 Each 3 5 Active Insulin Disposable Pump (Omnipod 5 Libre2 Plus G6) Kit 1 Each by Does not apply route every 3 days. 30 Kit 5 Active Active Problems Problem Noted Date Diagnosed Date 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 02/27/2024 Class 1 obesity due to exces s calories with serious comorbidity and body mass index (BMI) of 31.0 to 31.9 in adult 02/27/2024 Encounters Date Type Department Care Team Description 03/21/2025 Refill [facility] - [facility] - [place] [address] [place] [address] Glory Sanabria MD Medication Refill 03/15/2025 9:24 AM CDT - 03/15/2025 11:18 AM CDT Emergency [facility] Emergency [address] [place] [address] Santos Espinal MD Chest pain, unspecified type Discharge Disposition: Discharged to home or Selfcare 03/15/2025 Travel 03/08/2025 11:14 AM CDT - 03/08/2025 12:33 PM CDT Emergency [facility] Emergency [address] [place] [address] Yomaira Gay APRN, CNP Contusion of left lower leg, initial encounter Discharge Disposition: Discharged to home or Selfcare 03/08/2025 Travel 02/20/2025 Refill [facility] [address] [place] [address] Glory Sanabria MD Medication Refill 02/19/2025 Refill [facility] [address] [place] [address] Glory Sanabria MD Medication Refill 02/19/2025 Refill [facility] [address] [place] [address] Glory Sanabria MD Medication Refill from Last [...] Sign Reading Time Taken Comments Blood Pressure 138/91 03/15/2025 11:00 AM CDT Pulse 72 03/15/2025 11:00 AM CDT Temperature 36.6 C (97.9 F) 03/15/2025 9:31 AM CDT Respiratory Rate 23 03/15/2025 11:0 0 AM CDT Oxygen Saturation 97% 03/15/2025 11: 00 AM CDT Inhaled Oxygen Concentration - - Weight 88.3 kg (194 lb 10.7 oz) 03/15/2025 9:31 AM CDT Height 167.6 cm (5' 6) 03/15/2025 9:31 AM CDT Body Mass Index 31.42 03/15/2025 9:31 AM CDT Plan of Treatment Health Maintenance Due [...] Immunization ( season) 2024 11/28/2020, 11/07/2020 Diabetes: Hemoglobin A1c 03/13/2025 025, 05/31/2024, 12/27/2023, Additional history exists Influenza Immunization (#1) 2025 Diabetes: Eye Exam 11/06/2025 11/06/2024, 1 10/28/2023, 08/27/2024, Additional history exists Diabetes: Nephropathy Screening 03/15/2026 03/15/2025, 03/08/2025, 08/06/2023, Additional history exists Colonoscopy 11/26/2026 11/26/2016 Colorectal [...] Procedure Name Priority Date/Time Associated Diagnosis Comments US LEFT DUPLEX LOWER EXTREMITY VEINS Stat with Interpretation 03/15/2025 10:21 AM CDT XR CHEST SINGLE VIEW PORTABLE STAT 03/15/2025 10:05 AM CDT CBC WITH AUTO DIFFERENTIAL STAT 03/15/2025 9:45 AM CDT N-TERMINAL- PRO B TYPE NATRIURETIC PEPTIDE STAT 03/15/2025 9:45 AM CDT PROTIME (PT) (PROTHROMBIN TIME) STAT 03/15/2025 9:45 AM CDT APTT (PTT) STAT 03/15/2025 9:45 AM CDT D-DIMER STAT 03/15/2025 9:45 AM CDT TROPONIN I, HIGH SENSITIVITY (HSTRP) STAT 03/15/2025 9:45 AM CDT CMP (COMPREHENSIVE METABOLIC PANEL) STAT 03/15/2025 9:45 AM CDT COMPLETE BLOOD COUNT (CBC) WITH DIFF STAT 03/15/2025 9:45 AM CDT EKG 12 LEAD STAT 03/15/2025 9:25 AM CDT EKG SCAN 03/15/2025 12:00 AM CDT CBC WITH AUTO DIFFERENTIAL STAT 03/08/2025 11:25 AM CDT D-DIMER STAT 03/08/2025 11:25 AM CDT CMP (COMPREHENSIVE METABOLIC PANEL) STAT 03/08/2025 11:25 AM CDT COMPLETE BLOOD COUNT (CBC) WITH DIFF STAT 03/08/2025 11:25 AM CDT POCT GLYCOSYLATED HEMOGLOBIN Routine 09/13/2024 3:06 PM WAFER MOUNTER Type 1 diabetes mellitus with diabetic polyneuropathy (HCC) HM DILATED EYE EXAM 08/27/2024 12:00 AM WAFER MOUNTER from Last 3 Months or Most Recently Relevant to Health Maintenance Results * US LEFT DUPLEX LOWER EXTREMITY VEINS (03/15/2025 10:21 AM CDT) Anatomical Region Laterality Modality vascular Left Ultrasound 03/15/2025 10:2 5 AM CDT Impressions 03/15/2025 10:27 AM CDT IMPRESSION: No left lower extremity deep venous thrombosis. Narrative 03/15/2025 10:27 AM CDT EXAM DESCRIPTION: US LEFT DUPLEX LOWER EXTREMITY VEINS REASON FOR STUDY: Left leg pain TECHNIQUE: Duplex scan using the B-mode, spectral Doppler, and color-flow Doppler of the deep venous system of the left lower extremity was performed. Images stored on PACS. COMPARISON: No prior FINDINGS: The common femoral, common femoral-saphenous vein confluence, visualized profunda femoral, superficial femoral, and popliteal veins are readily compressible with no intraluminal thrombus on fenton scale images. There is normal color and spectral Doppler signal, including augmentation. Greater saphenous vein appears patent. Visualized calf veins are patent. THIS IS AN ELECTRONICALLY VERIFIED FINAL REPORT 03/15/2025 10:25 AM - Electronically signed by Nick Curiel M.D. MJ: TYLER Report ID: [id number] Reading Location: [id number] Procedure Note Nick Curiel MD - 03/15/2025 EXAM DESCRIPTION: US LEFT DUPLEX LOWER EXTREMITY VEINS REASON FOR STUDY: Left leg pain TECHNIQUE: Duplex scan using the B-mode, spectral Doppler, and color-flow Doppler of the deep venous system of the left lower extremity was performed. Images stored on PACS. COMPARISON: No prior FINDINGS: The common femoral, common femoral-saphenous vein confluence, visualized profunda femoral, superficial femoral, and popliteal veins are readily compressible with no intraluminal thrombus on fenton scale images. There is normal color and spectral Doppler signal, including augmentation. Greater saphenous vein appears patent. Visualized calf veins are patent. THIS IS AN ELECTRONICALLY VERIFIED FINAL REPORT 03/15/2025 10:25 AM - Electronically signed by Nick SCOTT Report ID: [id number] Reading Location: [id number] IMPRESSION: No left lower extremity deep venous thrombosis. us Santos Espinal MD [facility] ORDERABLES Final R esult * XR CHEST SINGLE VIEW PORTABLE (03/15/2025 10:05 AM CDT) Anatomical Region Laterality Modality Chest N/A Computed Radiogr aphy 03/15/2025 10:1 7 AM CDT Impressions 03/15/2025 10:20 AM CDT IMPRESSION: No acute cardiopulmonary abnormality. Narrative 03/15/2025 10:20 AM CDT EXAM DESCRIPTION: XR CHEST SINGLE VIEW PORTABLE REASON FOR STUDY: Intermittent pains on left side of body for several months and occasional sharp pains radiating into left arm and left leg. SOB associated with the pain. Hx asthma and hematoma of left leg a few weeks ago. TECHNIQUE: Single radiographic view(s) of the chest. COMPARISON: Prior exam 08/06/2023 FINDINGS: LUNGS: Pulmonary vascularity appears normal. No confluent infiltrate or effusion. HEART/MEDIASTINUM: Cardiac silhouette normal in size. Mediastinal and hilar contours appear normal. LINES/TUBES: None. BONES: No acute osseous abnormality. THIS IS AN ELECTRONICALLY VERIFIED FINAL REPORT 03/15/2025 10:17 AM - Electronically signed by Nick SCOTT Report ID: [id number] Reading Location: [id number] Procedure Note Nick Curiel MD - 03/15/2025 EXAM DESCRIPTION: XR CHEST SINGLE VIEW PORTABLE REASON FOR STUDY: Intermittent pains on left side of body for several months and occasional sharp pains radiating into left arm and left leg. SOB associated with the pain. Hx asthma and hematoma of left leg a few weeks ago. TECHNIQUE: Single radiographic view(s) of the chest. COMPARISON: Prior exam 08/06/2023 FINDINGS: LUNGS: Pulmonary vascularity appears normal. No confluent infiltrate or effusion. HEART/MEDIASTINUM: Cardiac silhouette normal in size. Mediastinal and hilar contours appear normal. LINES/TUBES: None. BONES: No acute osseous abnormality. THIS IS AN ELECTRONICALLY VERIFIED FINAL REPORT 03/15/2025 10:17 AM - Electronically signed by Nick Curiel M.D. MJ: TYLER Report ID: [id number] Reading Location: [id number] IMPRESSION: No acute cardiopulmonary abnormality. Santos Espinal MD IMG DIAGNOSTIC ORDERABLES Final Result * NT-proBNP (03/15/2025 9:45 AM CDT) NT PROBNP 211.5 <450.0 pg/mL 03/15/2025 10:51 AM CDT [facility] Comment: AGE pg/mL INTERPRETATION All <300 Negative: HF (Heart Failure) unlikely 18 to <50 >=300.0 to <450.0 Indeterminate. Consider other causes of NT-proBNP elevation 50 to 75 >=300.0 to <900.0 Indeterminate. Consider other causes of NT-proBNP elevation >75 >=300.0 to <1800.0 Indeterminate. Consider other causes of NT-proBNP elevation 18 to <50 >=450.0 Positive: HF likely 50 to 75 >=900.0 Positive: HF likely >75 >=1800.0 Positive: HF likely Total protein levels at or above 12.6 mg/dl may falsely decrease NT-proBNP values. Blood Venipuncture / Unknown 03/15/2025 9:45 AM CDT 03/15/2025 10:24 AM CDT Santos Espinal MD CHEMISTRY ORDERABLES Nu l Result [facility] [address] [place] [address] * TROPONIN I, HIGH SENSITIVITY (HSTRP) (03/15/2025 9:45 AM CDT) [facility] TROPONIN I, HIGH SENSITIVITY- KAMARA <3 <=14 ng/L 03/15/2025 10:51 AM CDT [facility] Comment: High-sensitivity troponin I results are reported in ng/L making the result appear to be 1,000 times higher than the contemporary troponin I value which is reported in ng/ml. Results from [place]. Blood Venipuncture / Unknown 03/15/2025 9:45 AM CDT 03/15/2025 10:24 AM CDT us Santos Espinal MD CHEMISTRY ORDERABLES Nu l Result Performing Organization Address [facility] Co de Phone Number [facility] [address] [place] [address] * (ABNORMAL) CBC with Auto Differential (03/15/2025 9:45 AM CDT) Only the most recent of2 resultswithin the time period is included. [facility] WBC 3.15(L) 4.00 - 12.00 10(3)/mcL 03/15/2025 10:28 AM CDT [facility] RBC 4.49 3.80 - 5.30 10(6)/[facility] 03/15/2025 10:28 AM CDT [facility] HEMOGLOBIN (HGB) 13.8 12.0 - 15.8 g/dL 03/15/2025 10:28 AM CDT [facility] HEMATOCRIT (HCT) 40.0 36.0 - 47.0 % 03/15/2025 10:28 AM CDT [facility] MCV 89.1 82.0 - 96.0 fL 03/15/2025 10:28 AM CDT [facility] MCH 30.7 26.0 - 34.0 pg 03/15/2025 10:28 AM CDT [facility] MCHC 34.5 31.0 - 36.0 g/dL 03/15/2025 10:28 AM CDT [facility] PLATELET COUNT 340 140 - 440 10(3)/mcL 03/15/2025 10:28 AM CDT [facility] RDW 12.2 11.8 - 15.5 % 03/15/2025 10:28 AM CDT [facility] MPV 10.7 9.7 - 12.4 fL 03/15/2025 10:28 AM CDT [facility] NEUTROPHILS 51.4 47.0 - 73.0 % 03/15/2025 10:28 AM CDT [facility] LYMPHOCYTES 38.4 18.0 - 42.0 % 03/15/2025 10:28 AM CDT [facility] MONOCYTES 6.3 4.0 - 12.0 % 03/15/2025 10:28 AM CDT [facility] EOSINOPHILS 2.9 0.0 - 5.0 % 03/15/2025 10:28 AM CDT [facility] BASOPHILS 1.0 0.0 - 1.0 % 03/15/2025 10:28 AM CDT [facility] IMMATURE GRANULOCYTE 0.0 0.0 - 0.4 % 03/15/2025 10:28 AM CDT [facility] Comment:Immature Granulocyte s includes Metamyelocytes, Myelocytes, and Promyelocytes. ABSOLUTE NEUTROPHILS 1.62 1.60 - 7.70 10(3)/mcL 03/15/2025 10:28 AM CDT [facility] ABSOLUTE LYMPHOCYTES 1.21(L) 1.30 - 3.20 10(3)/mcL 03/15/2025 10:28 AM CDT [facility] ABSOLUTE MONOCYTES 0.20 0.20 - 1.00 10(3)/mcL 03/15/2025 10:28 AM CDT [facility] ABSOLUTE EOSINOPHIL 0.09 0.00 - 0.40 10(3)/mcL 03/15/2025 10:28 AM CDT [facility] ABSOLUTE BASOPHILS 0.03 0.00 - 0.10 10(3)/mcL 03/15/2025 10:28 AM CDT [facility] ABSOLUTE IMMATURE GRANULOCYTE 0.00 0.00 - 0.03 10 (3) mcL. 03/15/2025 10:28 AM CDT [facility] NRBC PER 100 WBC 0 03/15/20 10:28 AM CDT [facility] Blood Venipuncture / Unknown 03/15/2025 9:45 AM CDT 03/15/2025 10:24 AM CDT us Santos Espinal MD HEMATOLOGY ORDERABLES Fin al Result Performing Organization Address [facility] de Phone Number [facility] [address] [place] [address] * APTT (PTT) (03/15/2025 9:45 AM CDT) Pathologist [facility] PTT 27 24 - 36 sec 03/15/2025 10:45 AM CDT [facility] Blood Venipuncture / Unknown 03/15/2025 9:45 AM CDT 03/15/2025 10:24 AM CDT Narrative [facility] - 03/15/2025 10:45 AM CDT Therapeutic range for unfractionated heparin at 0.3-0.7 U/mL is an aPTT value in the range of 71-100 seconds. Critical value for the PTT test is >= 122 seconds. us Santos Espinal MD HEMATOLOGY ORDERABLES Fin al Result Performing Organization Address [facility] Co de Phone Number [facility] [address] [place] [address] * PT / INR (03/15/2025 9:45 AM CDT) PROTIME-PATIENT 12.5 11.6 - 14.8 sec 03/15/2025 10:45 AM CDT [facility] INR 0.9 0.9 - 1.2 03/15/2025 10:45 AM CDT [facility] Comment: Therapeutic Ranges INR = 2.0-3.0: Venous thromb, atrial fib, pul embolism, tissue heart valve, ami. INR = 2.5-3.5: Mechanical heart valve Critical value for INR is >/= 4.5 Blood Venipuncture / Unknown 03/15/2025 9:45 AM CDT 03/15/2025 10:24 AM CDT us Santos Espinal MD HEMATOLOGY ORDERABLES Fin al Result Performing Organization Address [facility] de Phone Number [facility] [address] [place] [address] * D-Dimer (03/15/2025 9:45 AM CDT) Only the most recent of2 resultswithin the time period is included. D DIMER 0.47 <0.50 mcg/mL FEU 03/15/2025 10:45 AM CDT [facility] Blood Venipuncture / Unknown 03/15/2025 9:45 AM CDT 03/15/2025 10:24 AM CDT Narrative [facility] - 03/15/2025 10:45 AM CDT The FDA has approved this method to exclude the diagnosis of DVT and/or PE at the cutoff value of <0.50 mcg/mL FEU. us Santos Espinal MD HEMATOLOGY ORDERABLES Fin al Result Performing Organization Address [facility] Co de Phone Number [facility] [address] [place] [address] * (ABNORMAL) CMP (Comprehensive Metabolic Panel) (03/15/2025 9:45 AM CDT) Only the most recent of2 resultswithin the time period is included. SODIUM 143 136 - 145 mmol/L 03/15/2025 10:43 AM CDT [facility] POTASSIUM 3.9 3.5 - 5.1 mmol/L 03/15/2025 10:43 AM CDT [facility] CHLORIDE 110(H) 98 - 107 mmol/L 03/15/2025 10:43 AM CDT [facility] CO2, VENOUS 26 22 - 30 mmol/L 03/15/2025 10:43 AM CDT [facility] ANION GAP 10.9 <18.0 mmol/L 03/15/2025 10:43 AM CDT [facility] GLUCOSE 183(H) 70 - 99 mg/dL 03/15/2025 10:43 AM CDT [facility] BUN 18 10 - 20 mg/dL 03/15/2025 10:43 AM [facility] CREATININE, BLOOD 0.67 0.60 - 1.00 mg/dL 03/15/2025 10:43 AM [facility] BUN/CREATININE RATIO 27(H) 12 - 20 ratio 03/15/2025 10:43 AM CDT [facility] TOTAL PROTEIN 7.1 6.0 - 8.0 g/dL 03/15/2025 10:43 AM [facility] ALBUMIN 4.4 3.5 - 5.0 g/dL 03/15/2025 10:43 AM [facility] A/G RATIO 1.6 1.0 - 2.2 03/15/2025 10:43 AM CDT [facility] CALCIUM 9.2 8.7 - 10.5 mg/dL 03/15/2025 10:43 AM CDT [facility] T BILI 0.5 0.2 - 1.2 mg/dL 03/15/2025 10:43 AM CDT [facility] SGOT (AST) 21 <43 U/L 03/15/2025 10:43 AM CDT [facility] SGPT (ALT) 14 <56 U/L 03/15/2025 10:43 AM CDT [facility] ALKALINE PHOSPHATASE 74 40 - 150 U/L 03/15/2025 10:43 AM CDT [facility] GFR, ESTIMATED >60 >=60 03/15/2025 10:43 AM CDT [facility] Comment: Creatinine Clearance is the preferred criteria for selecting drug dose adjustments in renally impaired patients. The GFR is provided as additional pertinent clinical information. GFR is reported in mL/min/1.73 sq m. Calculation based on the Chronic Kidney Disease Epidemiology Collaboration (CKD- EPI) equation refit without adjustment for race. GFR, EST. >60 >=60 025 10:43 AM CDT [facility] GFR, EST. NONAFRICAN >60 >=60 03/15/2025 10:43 AM CDT [facility] Blood Venipuncture / Unknown 03/15/2025 9:45 AM CDT 03/15/2025 10:24 AM CDT us Santos Espinal MD CHEMISTRY ORDERABLES Nu l Result [facility] [address] [place] [address] * EKG 12 LEAD (03/15/2025 9:25 AM CDT) Ventricular Rate 81 BPM EXTERNAL EKG Atrial Rate 81 BPM EXTERNAL EKG P-R Interval 184 ms EXTERNAL EKG QRS Duration 72 ms EXTERNAL EKG Q-T Duration 394 ms EXTERNAL EKG QTC CALCULATION 457 ms EXTERNAL EKG P [place] 30 degrees EXTERNAL EKG R [place] -6 degrees EXTERNAL EKG T [place] 63 degrees EXTERNAL EKG 03/15/2025 9:25 AM CDT Impressions EXTERNAL EKG - 03/16/2025 10:55 AM CDT Sinus rhythm with fusion complexes Low voltage QRS Abnormal ECG When compared with ECG of 06-AUG-2023 09:41, fusion complexes are now present Criteria for Septal infarct are no longer present Confirmed by Vivi Wick ([id number]) on 03/16/2025 10:55:44 AM Narrative Procedure Note Vivi Wick MD - 03/16/2025 IMPRESSION: Sinus rhythm with fusion complexes Low voltage QRS Abnormal ECG When compared with ECG of 06-AUG-2023 09:41, fusion complexes are now present Criteria for Septal infarct are no longer present Confirmed by Vivi Wick ([id number]) on 03/16/2025 10:55:44 AM us Santos Espinal MD IMG ECG ORDERABLES Final Result Performing Organization Address [facility] Co de Phone Number EXTERNAL EKG * EKG SCAN (03/15/2025 12:00 AM CDT) 03/15/2025 us Provider Scan IMG ECG ORDERABLES Final Result Performing Organization Address [facility] Co de Phone Number RESULTING AGENCY * (ABNORMAL) POCT GLYCOSYLATED HEMOGLOBIN (09/13/2024 3:06 PM WAFER MOUNTER) HGB-A1C 7.6(A) 4 - 6 % Blood 09/13/2024 3:06 PM WAFER MOUNTER us Glory Sanabria MD POINT OF CARE TESTING (MANUAL) F inal Result * HM DILATED EYE EXAM (08/27/2024 12:00 AM WAFER MOUNTER) 08/27/2024 us Provider Scan PROCEDURE/MINOR SURGICAL ORDERAB LES Final Result Performing Organization Address [facility] Co de Phone Number SCAN from Last 3 Months or Most Recently Relevant to Health Maintenance Insurance [facility] Care Teams Entry Level Management Relationship Specialty Start Date End Date Mason Mijares DO [address] [place] [address] PCP - General Internal Medicine 06/25/22 Glory Sanabria MD [address] [phone] Consulting Physician Endocrinology 12/19/23
--- OUTSIDE RECORDS SUMMARY | 2025-03-25 10:12 | XMS_ITS | Encounter Summary ---
Author Organization [facility] Address [address] [place] [address] Phone Care Team Providers Care Batter Depositor Name Role Phone MilagroMason reese Primary Care Provider Glory Sanabria MD Unavailable Reason for Visit * Reason Comments Medication Refill Encounter Details Date Type Department Care Team (Late st Contact Info) Description 01/23/2024 Refill [facility] - [place] [address] [place] [address] Glory Sanabria MD [address] [address] Medication Refill Social History Tobacco [...] on filedocumented in this encounter Care Teams Batter Depositor Relationship Specialty Start Date End Date Mason Mijares DO [address] [facility] [place], [place] [id number] PCP - General Internal Medicine 06/25/22 Glory Sanabria MD [address] [phone] Consulting Physician Endocrinology 12/19/23 documented as of this encounter
--- OUTSIDE RECORDS SUMMARY | 2025-03-25 10:12 | XMS_ITS | Referral Summary ---
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 Improving with lifestyle [...] pump Assessment & Plan (11/10/2021 10:07 AM ADVERTISING DIRECTOR): Hba1c was Lab Results Component Value Date [...] 03/18/2011 Assessment & Plan (09/02/2022 4:12 PM ADVERTISING DIRECTOR): Chronic problem, improving. 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 Not on file Not on file Not on file Last Filed Vital Signs Vital Sign Reading Time Taken Comments Blood Pressure 103/70 10/24/2023 10:07 AM ADVERTISING DIRECTOR Pulse 81 10/24/2023 10:07 AM ADVERTISING DIRECTOR Temperature 36.4 C (97.6 F) 10/24/2023 10:07 AM ADVERTISING DIRECTOR Respiratory Rate 18 08/19/2023 9:05 PM ADVERTISING DIRECTOR Oxygen Saturation 98% 10/24/2023 10:07 AM ADVERTISING DIRECTOR Inhaled Oxygen Concentration - - Weight 87.4 kg (192 lb 9.6 oz) 10/24/2023 10:07 AM ADVERTISING DIRECTOR Height 167.6 cm (5' 6) 10/24/2023 10:07 AM ADVERTISING DIRECTOR Body Mass Index 31.09 10/24/2023 10:07 AM ADVERTISING DIRECTOR Plan of Treatment Not on file Medical Devices Implanted Type Area Business Supervisor Device Identifier Shelf Expiration Date Model / Serial / Lot [employer]/C R Bard [id number] Ventralex St Sepra Sorbaflex 2.5in [place] [employer] Bioresorbable - Snone - [id number] Implanted:Qty: 1 on 12/09/2020 by Elvin Mcduffie MD at [employer]: Abdomen [employer]/C R Bard 05/02/2022 [id number] / NONE / [id number] Procedures Procedure Name Priority Date/Time Associated Diagnosis Comments HM DIABETES EYE EXAM Routine 08/23/2023 8:14 AM ADVERTISING DIRECTOR EGFR STAT 08/19/2023 7:02 PM ADVERTISING DIRECTOR POCT HEMOGLOBIN A1C Routine 09/02/2022 3 :21 PM ADVERTISING DIRECTOR Type 1 diabetes mellitus with hyperglycemia (HCC) LIPID PANEL Routine 07/14/2022 12:20 PM ADVERTISING DIRECTOR Type 1 diabetes mellitus with hyperglycemia (HCC) ALBUMIN CREATININE RATIO, URINE Routine 03/16/2022 8:13 AM CDT Type 1 diabetes mellitus with hyperglycemia (HCC) TSH Routine 03/16/2022 8:13 AM CDT Type 1 diabetes mellitus with hyperglycemia (HCC) from Last 3 Months or Most Recently Relevant to Health Maintenance Results * DIABETES EYE EXAM (08/23/2023 8:14 AM ADVERTISING DIRECTOR) Historical Provider HEALTH MAINTENANCE Final Result * eGFR (08/19/2023 7:02 PM ADVERTISING DIRECTOR) eGFR >90 >=60 mL/min/1. 73 m2 [facility] [...] last reviewed 2021. Blood 08/19/2023 7:02 PM ADVERTISING DIRECTOR 08/19/2023 7:19 PM ADVERTISING DIRECTOR Chano Cason MD LAB BLOOD ORDERABLES Un l Result [facility] Department [place] [address] * (ABNORMAL) POCT hemoglobin A1c (09/02/2022 3:21 PM ADVERTISING DIRECTOR) Hemoglobin A1C, POC 7.2 Blood 09/02/2022 3:21 PM ADVERTISING DIRECTOR Missy PARSON POINT OF CARE TEST MILDRED KRUSE Final Result * Lipid panel (07/14/2022 12:20 PM ADVERTISING DIRECTOR) Cholesterol 189 30 - 199 mg/dL [facility] [...] [facility] Blood 07/14/2022 12:2 0 PM ADVERTISING DIRECTOR 07/14/2022 6:59 PM ADVERTISING DIRECTOR Narrative [facility] - 07/14/2022 7:54 PM ADVERTISING DIRECTOR These lab test should be done fasting. This means do not eat or drink for at least 12 hours prior to getting your blood drawn. us Joss Tadeo MD LAB BLOOD ORDERABLES Final Resul t [facility] [address] Department [place] [address] * Albumin Creatinine Ratio, Urine [...] ORDERABLES Final Resul t Performing Organization Address City/[facility] Co de Phone Number [facility] [address] Department [place] [address] * TSH (03/16/2022 8:13 AM CDT) Thyroid Stimulating Hormone 2.77 0.30 - 4.20 mcIUnit/mL [facility] Blood 03/16/2022 8:13 AM CDT 03/16/2022 2:38 PM CDT us Joss Tadeo MD LAB BLOOD ORDERABLES Final Resul t Performing Organization Address [facility] Co de Phone Number [facility] [address] Department [place] [employer] [place] [address] from Last 3 Months or Most Recently Relevant to Health Maintenance Insurance [facility]/O Address: [facility] [id number] [place] [id number] Advance Directives For more information, please contact: [phone] Documents on File Type Date Recorded Patient Lumber Tripper Expl anation ADVANCE DIRECTIVE 12/13/2020 11:04 PM ADVANCE DIRECTIVE 12/09/2020 9:09 AM Care Teams Juice Mixer Relationship Specialty Start Date End Date Mason Mijares DO PCP - General 10/21/14 Elvin Mcduffie MD Consulting Physician General Surgery 12/09/20
--- OUTSIDE RECORDS SUMMARY | 2025-03-25 10:12 | XMS_ITS | Continuity of Care Document ---
Author Organization [facility] Address [address] [place] [address] [place] [address] Phone Care Team Providers Care Ski Patrol Director Name Role Phone [facility] Unavailable Unavail able Procedures Procedure Date Corneal Topography Advance Directives Directive Yes / No Effective Date File Name No Information Encounters Encounter Description Practice Location Reason(s) For Visit Diagnoses Date Provider Providers Copied on Encounter [facility], [address], [place], [place], [id number], [place] tel:[phone] [facility] No Information [facility] . [address], [place], [address], [place]. tel:[phone] Referring Provider: Joe Duenas OD F, [address] [facility] [facility] [address], [place], [address]. tel:[phone] Family History Family Member Type Diagnosis Age At Onset No Information Payers Payer name Insurance type Covered libertarian ID Authoriza tion(s) No Information Social History [...]
--- OUTSIDE RECORDS SUMMARY | 2025-03-25 10:12 | XMS_ITS | Encounter Summary ---
Author Organization [facility] Address [address] [place] [address] Care Team Providers Care Vault Attendant Name Role Phone Milagromary annMason DO Primary Care Provider [phone] Encounter Details Date Type Department Care Team (Late st Contact Info) Description 03/01/2024 Lab Requisition [facility] - DermPath Lab [address] [place] [id number] Aris Dunn MD [address] [address] Social History Tobacco Use Types Packs/Day Years Used Date Smoking Tobacco: Never Smokeless Tobacco: Never Comments No Sex and Gender Information Value Date Recorded Sex Assigned at Not on file Legal Sex Female 3:14 PM SUPERINTENDENT MEASUREMENT Gender Identity Female Sexual Orientation Not on file documented as of this encounter Plan of Treatment Not on file documented as of this encounter Procedures Procedure Name Priority Date/Time Associated Diagnosis Comments DERMATOPATHOLOGY Routine 02/28/2024 12:0 0 AM CDT documented in this encounter Results * DERMATOPATHOLOGY (02/28/2024 12:00 AM CDT) Case Report Dermatopathology Report Case: [id number] Authorizing Provider: Aris uDnn MD Collected: 02/28/2024 12:00 AM Ordering Location: [facility] - Received: 03/01/2024 12:26 [...] characteristic determined by the Dermatopathology Laboratory at [facility], directed by Dr. Keo Bee. These tests need not be, and therefore are not, approved by the [place] Food and Drug Administration. The tests are used for clinical purposes. Billing Codes Specimen Charges Stain Charges 25400 1 12:50 PM CDT DERMATOPATHOLOGY LABORATORY Embedded Images 12:50 PM CDT DERMATOPATHOLOGY LABORATORY Pathology/Cytolog y TISSUE SPECIMEN FROM SKIN / Unknown 02/28/2024 03/01/2024 12:26 PM CDT us Aris Dunn MD LAB - PATHOLOGY/CYTOLOGY ORDERAB LES Final Result DERMATOPATHOLOGY LABORATORY [facility] - Department of Dermatology [facility] Specialized Medicine [facility], 3rd Floor [address] [phone] documented in this encounter Visit Diagnoses Not on filedocumented in this encounter Care Teams Vault Attendant Relationship Specialty Start Date End Date Mason Mijares DO PCP - General Internal Medicine 11/09/16 documented as of this encounter
--- OUTSIDE RECORDS SUMMARY | 2025-03-25 10:12 | XMS_ITS | Clinical Summary ---
Author Organization [facility] Address [address] [facility] [place] [address] Phone Care Team Providers Care Design Maker Name Role Phone Unavailable Primary Care Provider Unavailabl e Encounters Date Type Department Care Team Description 03/21/2025 Abstract [facility] Neurology [address] [place] [address] Augusto Kent MD from Last 3 Months Social History Tobacco Use Types Packs/Day Years Used Date Smoking Tobacco: Never Assessed Comments Unknown Sex and Gender Information Value Date Recorded Sex Assigned at Not on file Legal Sex Female 9:52 AM CDT Gender Identity Not on file Sexual Orientation Not on file Plan of Treatment Upcoming Encounters Date Type Department Care Team (Late st Contact Info) Description 04/23/2025 8:00 AM CDT Office Visit [facility] [address] [place] [address] Felix Ambrosio MD [address] [place] [address] Health Maintenance Due Date Last Done Comments DTAP/TDAP/TD VACCINES (1 - Tdap) 01/09/1988 HEPATITIS B VACCINES (1 of 3 - 19+ 3-dose series) 02/1988 HPV/Cotest (21-29) 1990 CERVICAL CANCER SCREENING 1999 HPV/Cotest (30-65) 1999 PAP SMEAR 1999 BREAST CANCER SCREENING 2009 COLORECTAL SCREENING 2014 Colorectal Cancer Screening 2014 FIT-DNA Q 3 years 2014 FIT/FOBT Q 1 year 2014 Flex Sig/CT Colonography Q 5 years 2014 ZOSTER VACCINE (1 of 2) 2019 INFLUENZA VACCINE (#1) 2025
--- OUTSIDE RECORDS SUMMARY | 2025-03-25 10:12 | XMS_ITS | Clinical Summary ---
Author Organization [facility] [address] Address [address] [place] [address] Care Team Providers Care Hospital Nurse Name Role Phone Mason Mijares DO Primary Care Provider [phone] Elvin Mcduffie MD Unavailable [phone] Allergies Active Allergy Reactions Criticality Noted Date Comments Latex Rash Medium 11/09/2016 Mushroom Anaphylaxis,Vomiting High 03/02/2020 Silicone Rash Medium 11/09/2016 Eusvpwn-Swg-Tco Reductase Inhibitors Other (See comments) High 09/02/2022 [...] 09/02/2022 Assessment & Plan (09/02/2022 4:10 PM SENIOR DESIGNER/ART DIRECTOR): Lower CR to 10 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 Improving with [...] pump Assessment & Plan (11/10/2021 10:07 AM SENIOR DESIGNER/ART DIRECTOR): Hba1c was Lab Results Component Value [...] 03/18/2011 Assessment & Plan (09/02/2022 4:12 PM SENIOR DESIGNER/ART DIRECTOR): Chronic problem, improving. 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 Not on file Not on file Not on file Obstetrics History Last Filed Vital Signs Vital Sign Reading Time Taken Comments Blood Pressure 103/70 10/24/2023 10:07 AM SENIOR DESIGNER/ART DIRECTOR Pulse 81 10/24/2023 10:07 AM SENIOR DESIGNER/ART DIRECTOR Temperature 36.4 C (97.6 F) 10/24/2023 10:07 AM SENIOR DESIGNER/ART DIRECTOR Respiratory Rate 18 08/19/2023 9:05 PM SENIOR DESIGNER/ART DIRECTOR Oxygen Saturation 98% 10/24/2023 10:07 AM SENIOR DESIGNER/ART DIRECTOR Inhaled Oxygen Concentration - - Weight 87.4 kg (192 lb 9.6 oz) 10/24/2023 10:07 AM SENIOR DESIGNER/ART DIRECTOR Height 167.6 cm (5' 6) 10/24/2023 10:07 AM SENIOR DESIGNER/ART DIRECTOR Body Mass Index 31.09 10/24/2023 10:07 AM SENIOR DESIGNER/ART DIRECTOR Plan of Treatment Health Maintenance Due Date [...] Exam 08/23/2024 08/23/2023, , 11/10/2021 Influenza Vaccine (#1) 2025 Medical Devices Implanted Type Area Reproductive Endocrinologist Device Identifier Shelf Expiration Date Model / Serial / Lot [employer]/C R Bard [id number] Ventralex St Sepra Sorbaflex 2.5in [facility] Bioresorbable - Snone - [id number] Implanted:Qty: 1 on 12/09/2020 by Elvin Mcduffie MD at [facility] [employer]: Abdomen [employer] R Bard 05/02/2022 [id number] / NONE / [id number] Procedures Procedure Name Priority Date/Time Associated Diagnosis Comments DIABETES EYE EXAM Routine 08/23/2023 8:14 AM SENIOR DESIGNER/ART DIRECTOR EGFR STAT 08/19/2023 7:02 PM SENIOR DESIGNER/ART DIRECTOR POCT HEMOGLOBIN A1C Routine 09/02/2022 3 :21 PM SENIOR DESIGNER/ART DIRECTOR Type 1 diabetes mellitus with hyperglycemia (HCC) LIPID PANEL Routine 07/14/2022 12:20 PM SENIOR DESIGNER/ART DIRECTOR Type 1 diabetes mellitus with hyperglycemia (HCC) ALBUMIN CREATININE RATIO, URINE Routine 03/16/2022 8:13 AM CDT Type 1 diabetes mellitus with hyperglycemia (HCC) TSH Routine 03/16/2022 8:13 AM CDT Type 1 diabetes mellitus with hyperglycemia (HCC) from Last 3 Months or Most Recently Relevant to Health Maintenance Results * HM DIABETES EYE EXAM (08/23/2023 8:14 AM SENIOR DESIGNER/ART DIRECTOR) Historical Provider HEALTH MAINTENANCE Final Result * eGFR (08/19/2023 7:02 PM SENIOR DESIGNER/ART DIRECTOR) eGFR >90 >=60 mL/min/1. 73 m2 [facility] Comment: Interpretive Data Reference Interval Normal [...] last reviewed 2021. Blood 08/19/2023 7:02 PM SENIOR DESIGNER/ART DIRECTOR 08/19/2023 7:19 PM SENIOR DESIGNER/ART DIRECTOR Chano Cason MD LAB BLOOD ORDERABLES Nu mora Result [facility] [address] [facility] Department [place] [address] * (ABNORMAL) POCT hemoglobin A1c (09/02/2022 3:21 PM SENIOR DESIGNER/ART DIRECTOR) Hemoglobin A1C, POC 7.2 Blood 09/02/2022 3:21 PM SENIOR DESIGNER/ART DIRECTOR us Missy PARSON POINT OF CARE TEST ORDMichelle KRUSE Final Result * Lipid panel (07/14/2022 12:20 PM SENIOR DESIGNER/ART DIRECTOR) Cholesterol 189 30 - 199 mg/dL [...] last revised on 2018. Chol/HDL ratio 3 [facility] Blood 07/14/2022 12:2 0 PM SENIOR DESIGNER/ART DIRECTOR 07/14/2022 6:59 PM SENIOR DESIGNER/ART DIRECTOR Narrative [facility] - 07/14/2022 7:54 PM SENIOR DESIGNER/ART DIRECTOR These lab test should be done fasting. This means do not eat or drink for at least 12 hours prior to getting your blood drawn. us Joss Tadeo MD LAB BLOOD ORDERABLES Final Resul t Performing Organization Address [facility] Co de Phone Number [facility] [address] [place] [address] * Albumin Creatinine Ratio, Urine (03/16/2022 8:13 AM CDT) Albumin Ur 22.8 mg/L [facility] Comment: Interpretive Data No reference range established. Current interpretive data was last revised 2019. Creatinine Ur 280.1 mg/dL [facility] Comment: Interpretive Data No reference range established. Current interpretive data was last revised 2019. Albumin Creatinine Ratio, Ur 8 1 - 29 mg/g [facility] Urine 03/16/2022 8:13 AM CDT 03/16/2022 2:38 PM CDT us Joss Tadeo MD LAB URINE ORDERABLES Final Resul t Performing Organization Address [facility] de Phone Number [facility] [address] [address] Department [place] [address] * TSH (03/16/2022 8:13 AM CDT) Thyroid Stimulating Hormone 2.77 0.30 - 4.20 mcIUnit/mL [facility] Blood 03/16/2022 8:13 AM CDT 03/16/2022 2:38 PM CDT us Joss Tadeo MD LAB BLOOD ORDERABLES Final Resul t Performing Organization Address [facility] Co de Phone Number [facility] [address] [address] [place] [address] from Last 3 Months or Most Recently Relevant to Health Maintenance Insurance [facility] Advance Directives For more information, please contact: [phone] Documents on File Type Date Recorded Patient Supervisor Tumbling And Rolling Expl anation ADVANCE DIRECTIVE 12/13/2020 11:04 PM ADVANCE DIRECTIVE 12/09/2020 9:09 AM Care Teams Hospital Nurse Relationship Specialty Start Date End Date Mason Mijares DO PCP - General 10/21/14 Elvin Mcduffie MD Consulting Physician General Surgery 12/09/20
--- OUTSIDE RECORDS SUMMARY | 2025-03-25 10:12 | XMS_ITS | Clinical Summary ---
Author Organization [facility] [employer] Address [address] [place] [address] Care Team Providers Care Pipelines Supervisor Name Role Phone Mason Mijares DO Primary Care Provider Source Comments [facility] [employer],non-owned Affiliates and Associated Physician Practices is amultiple site organization consisting of ambulatory clinics and hospital sitesin [place], [place], [place] and [place]. This disclosure is being madepursuant to the Care Everywhere program and may not contain all information available regarding this patient. Last updated 18.[facility] [employer] Allergies Active Allergy Reactions Criticality Noted Date [...] on file Legal Sex Female 3:14 PM INVESTMENT RECOVERY TECHNICIAN Gender Identity Female Sexual Orientation Not on file Last Filed Vital Signs Vital Sign Reading Time Taken Comments Blood Pressure 110/70 10/02/2018 11:23 AM INVESTMENT RECOVERY TECHNICIAN Pulse 74 10/02/2018 11:23 AM INVESTMENT RECOVERY TECHNICIAN Temperature 37.2 C (99 F) 10/02/2018 11:23 AM INVESTMENT RECOVERY TECHNICIAN Respiratory Rate 16 10/02/2018 11:23 AM INVESTMENT RECOVERY TECHNICIAN Oxygen Saturation 98% 10/02/2018 11:23 AM INVESTMENT RECOVERY TECHNICIAN Inhaled Oxygen Concentration - - Weight 88 kg (194 lb) 10/02/2018 11:23 AM INVESTMENT RECOVERY TECHNICIAN Height 167.6 cm (5' 6) 10/02/2018 11:23 AM INVESTMENT RECOVERY TECHNICIAN Body Mass Index 31.31 10/02/2018 11:23 AM INVESTMENT RECOVERY TECHNICIAN Plan of Treatment Health Maintenance Due Date [...] season) 2024 DEPRESSION SCREENING 09/05/2024 INFLUENZA VACCINE (#1) 2025 COLON MONITORING 11/26/2026 11/26/2016 COLONOSCOPY - [...] Most Recently Relevant to Health Maintenance Insurance [address] [employer] Member Subscriber Plan / Payer (Ef fective 2023-Present) Name:Natalia Morrissey Carla Relation to Subscriber:Self Name:Natalia Morrissey Payer ID:[id number] (NAIC) Group ID:Not on file Type:O Address: [address] [place] [address] [employer] Care Teams Pipelines Supervisor Relationship Specialty Start Date End Date Mason Mijares DO PCP - General Internal Medicine 11/09/16
[2025-03-25 13:50] LABS: CRP < 0.5 mg/dL (<1.0)
[2025-03-25 14:04] LABS: Free T3 4.02 pg/mL (2.71-6.16); Free T4 Free Thyroxine 1.29 ng/dL (0.78-2.19)
[2025-03-25 14:10] LABS: Thyroid Stimulating Hormone 0.166 uIU/mL (0.465-4.680)
[2025-03-25 14:46] LABS: Vitamin B12 799.0 pg/mL (239-931)
== END 2025-03-25 10:02 | disposition home or self-care (01) ==
LOC: ANHGOSHLAB 10:01
PROVIDERS: PCP Internal Medicine; Visit Provider Internal Medicine
DX: M79.669 Pain in unspecified lower leg (principal); R53.83 Other fatigue; M79.10 Myalgia, unspecified site; R51.9 Headache, unspecified
CPT/HCPCS: 36415; 82607; 82746; 84439; 84443; 84481; 85652; 86140